=== PATIENT | female | born 1965 | race Caucasian/White ===

== ENCOUNTER 2022-03-17 07:12 | Emergency (ER) | payer BC ==
--- OUTSIDE RECORDS SUMMARY | 2022-03-17 07:15 | XMS REPORT | Continuity of Care Document ---
:1965 Author Organization [facility] t Address [address] [place] [address] Care Team Providers Name Role Phone RAYNE SHANKAR Attending Clinician Unavailable Raad ALEXANDER, Rayne Godwin Attending Clinician [phone] [id number] Attending Clinician Unavailable Payers Payer Name Policy Type Policy Number Effective Date Expiration Date S jose BCBS 2 [id number] 2022 00:00:00 Problems This patient has no known problems. Allergies, Adverse Reactions, Alerts This patient has no known allergies or adverse reactions. Medications This patient has no known medications. Procedures This patient has no known procedures. Encounters Start End Encounter Admission Attending Care Care Encounter Source Date/Time Date/Time Type Type Clinicians Facility Department ID 2022-03-20 2022-03-20 Outpatient JUSTO SHANKAR [id number] Justo 13:30:00 13:30:00 RAYNE mayfield 2022-03-14 2022-03-14 Office Jose R Shankar [id number] Justo 16:15:00 16:45:00 Visit Rayne Soares [id number] Se nkechi Godwin [id number] 2022-03-07 2022-03-07 Outpatient LAB90 JUSTO KEMP [id number] Justo 10:15:00 10:15:00 Alhajiol tran 2022-03-07 2022-03-07 Office Jose R Shankar [id number] Justo 09:30:00 10:00:00 Visit Rayne Soares [id number] Se nkechi Rossyi [id number] Results This patient has no known results.
[2022-03-17 08:25] LABS: Absolute Lymphocytes (CBC) 1.3 K/uL (0.7-4.9); Hematocrit 43.4 % (36.0-45.0); Lymphocytes % 17.9 % (15.3-44.8); MCV 88.8 fL (80-100); MPV 7.9 fL (7.6-11.3); RBC Red Blood Cell Count 4.89 M/uL (3.86-4.86)
--- NOTE | 2022-03-17 08:38 | RAD REPORT ---
EXAM DESCRIPTION: RAD - Foot Right 3 View - 03/17/2022 8:31 am CLINICAL HISTORY: cellulitis great toe x 3 weeks, eval for osteo COMPARISON: Foot Right 3 View dated 03/07/2022 FINDINGS: No fracture of the first toe phalanges. No cortical disruption or other findings of bone d estructive osteomyelitis. Degenerative findings on the March 07 study have not changed. Soft tissues of the lower extremity are thickened and edematous matching prior examination. No new ai r, calcification or foreign body in the soft tissues. IMPRESSION: No new finding since the March 07 examination. Continued surveillance can be performed if there is ongoing soft tissue infection. Osteomyelitis can be present prior to radiographic bone destruction.
--- NOTE | 2022-03-17 08:41 | RAD REPORT ---
EXAM DESCRIPTION: RAD - Foot Left 3 View - 03/17/2022 8:31 am CLINICAL HISTORY: cellulitis great toe x 2 weeks, eval for osteo COMPARISON: Foot Left 3 View dated 03/07/2022 FINDINGS: No fracture of the first toe phalanges. No cortical disruption or other findings of bone d estructive osteomyelitis. Degenerative findings detailed March 07 have not changed. Overall soft tissue edema of the left foot and ankle. No new air, foreign body or calcification in th e soft tissues. IMPRESSION: No osteomyelitis findings at this time. Degenerative findings are unchanged from the March 07 examination. Ongoing surveillance can be performed if there is continued soft tissue infection. Osteomyelitis can be present prior to radiographic bone destruction.
[2022-03-17 09:01] LABS: C-Reactive Protein 6.34 mg/L (<3.00); Potassium 4.7 mmol/L (3.5-5.1)
--- NOTE | 2022-03-17 09:12 | EDPHYS ---
Physician Documentation [facility] Name: Natalie Lara Age: 57 yrs Sex: Female : 1965 Arrival Date: 03/17/2022 Time: 07:14 Bed 5 Private MD: ED Physician Germain Lucas HPI: 03/17 07:49 This 57 yrs old Female presents to ER via Wheelchair with complaints of cellulitis. rn 07:49 The patient presents with cellulitis of the right foot and left foot. Description: rn erythematous, warm. Onset: The symptoms/episode began/occurred 2 week(s) ago. Possible cause(s): unknown. Associated signs and symptoms: Pertinent positives: erythema, swelling, Pertinent negatives: fever. Modifying factors: the symptoms are alleviated by prescription meds, clindamycin. Severity of symptoms: At their worst the symptoms were mild, in the emergency department the symptoms have improved. The patient has not experienced similar symptoms in the past. The patient has been recently seen by a physician:. Pt reports infection of feet for 2 weeks. Seen by physician when it began, put on bactrim, didn't seem to be doing much, recently put on clindamycin for 2 days with some improvement of redness. Reports small blisters to big toes recently popped, no fever, no streaking, no pain. Has been soaking in epsom salt and listerine. . 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 - Social history:: Smoking status: Patient denies any tobacco usage or history of. - Family history:: not pertinent. - Hospitalizations: : No recent hospitalization is reported. ROS: 07:49 Constitutional: Negative for fever, chills, and weight loss, Eyes: Negative for injury, rn pain, redness, and discharge, Neck: Negative for injury, pain, and swelling, Cardiovascular: Negative for chest pain, palpitations, and edema, Respiratory: Negative for shortness of breath, cough, wheezing, and pleuritic chest pain, Abdomen/GI: Negative for abdominal pain, nausea, vomiting, diarrhea, and constipation, Back: Negative for injury and pain, MS/Extremity: Negative for injury and deformity, Skin: + redness and swelling to bitleral 1st toes. Neuro: Negative for headache, weakness, numbness, tingling, and seizure. Exam: 07:49 Constitutional: This is a well developed, well nourished patient who is awake, alert, rn and in no acute distress. Head/Face: Normocephalic, atraumatic. Cardiovascular: Regular rate and rhythm. No pulse deficits. Respiratory: No increased work of breathing, no retractions or nasal flaring. Skin: Warm, dry. + mild erythema to bilateral 1st toes, each with unroofed blisters, right toe blister is dry and non-fluctuant, left toe blister is still draining a small amount of pus and also non-fluctuanct. No streaking. MS/ Extremity: Pulses equal, no cyanosis. Neuro: Awake and alert, GCS 15 Vital Signs: 07:38 Weight 136.08 kg; Height 5 ft. 6 in. (167.64 cm); Pain 3/10; jl7 07:51 Temp 97.9(O); kr3 09:35 BP 152 / 99; Pulse 79; Resp 16; Pulse Ox 99% on R/A; kr3 07:38 Body Mass Index 48.42 (136.08 kg, 167.64 cm) jl7 MDM: 07:14 Patient medically screened. rn 09:11 Differential diagnosis: cellulitis. Data reviewed: vital signs, nurses notes, lab test rn result(s), radiologic studies, plain films, and as a result, I will discharge patient. Counseling: I had a detailed discussion with the patient and/or guardian regarding: the historical points, exam findings, and any diagnostic results supporting the discharge/admit diagnosis, lab results, radiology results, the need for outpatient follow up, to return to the emergency department if symptoms worsen or persist or if there are any questions or concerns that arise at home. Special discussion: I discussed with the patient/guardian in detail that at this point there is no indication for admission to the hospital. It is understood, however, that if the symptoms persist or worsen the patient needs to return immediately for re-evaluation. ED course: WBC normal, sed rate normal, no osteo on xrays, stable vitals and pt reports improving on clindamycin. Will dc home with continuation of clindamycin, told to not soak so much, continue mupirocin on open blisters, and return if worsens for admission at that point.. 03/17 07:49 Order name: CBC with Diff; Complete Time: 08:51 rn 03/17 07:49 Order name: Basic Metabolic Panel; Complete Time: 09:10 rn 03/17 07:49 Order name: Procalcitonin rn 03/17 07:49 Order name: Sed Rate; Complete Time: 08:51 rn 03/17 07:49 Order name: CRP; Complete Time: 09:10 rn 03/17 07:49 Order name: Wound Culture rn 03/17 07:49 Order name: XRAY Foot LEFT 3 View; Complete Time: 08:51 rn 03/17 07:49 Order name: XRAY Foot RIGHT 3 View; Complete Time: 08:51 rn 03/17 07:49 Order name: IV Start; Complete Time: 08:12 rn Administered Medications: No medications were administered Disposition Summary: 03/17/22 09:12 Discharge Ordered Location: Home rn Problem: new rn Symptoms: have improved rn Condition: Stable rn Diagnosis - Cellulitis of left lower limb rn - Cellulitis of right lower limb rn Followup: rn - With: Private Physician - When: As needed - Reason: Recheck today's complaints, Re-evaluation by your physician Discharge Instructions: - Discharge Summary Sheet rn - Cellulitis, Adult rn Forms: - Medication Reconciliation Form rn - Thank You Letter rn - Antibiotic patternmaker wood - Prescription Opioid Use rn Signatures: Dispatcher [employer] Germain Pitts MD MD rn Leal, Jahala, RN RN jl7
--- NOTE | 2022-03-17 09:12 | ER ---
Nurse's Notes [facility] Name: Natalie Lara Age: 57 yrs Sex: Female : 1965 Arrival Date: 03/17/2022 Time: 07:14 Bed 5 Private MD: Diagnosis: Cellulitis of left lower limb;Cellulitis of right lower limb Presentation: 03/17 07:38 Chief complaint: Patient states: Bilateral feet swelling and blisters for a few weeks, jl7 PCP started antibiotics on 03/07/22, clindamycin started 03/14/22, redness improved, blisters worse. Coronavirus screen: At this time, the client does not indicate any symptoms associated with coronavirus-19. Ebola Screen: No symptoms or risks identified at this time. Risk Assessment: Do you want to hurt yourself or someone else? Patient reports no desire to harm self or others. Onset of symptoms was February 2022. 07:38 Method Of Arrival: Wheelchair [facility] 07:38 Acuity: YOSHI 3 [facility] 09:40 Initial Sepsis Screen: Does the patient meet any 2 criteria? No. Patient's initial kr3 sepsis screen is negative. Does the patient have a suspected source of infection? Yes: Skin breakdown/wound. Triage Assessment: 07:41 General: Appears in no apparent distress. uncomfortable, Behavior is calm, cooperative, jl7 appropriate for age. Pain: Complains of pain in right foot and left foot Pain currently is 3 out of 10 on a pain scale. 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 - Social history:: Smoking status: Patient denies any tobacco usage or history of. - Family history:: not pertinent. - Hospitalizations: : No recent hospitalization is reported. Screenin:37 Abuse screen: Denies threats or abuse. Nutritional screening: No deficits noted. kr3 Tuberculosis screening: No symptoms or risk factors identified. Fall Risk IV access (20 points). Total Parmar Fall Scale indicates No Risk (0-24 pts). Assessment: 07:55 General: Appears in no apparent distress. comfortable, Behavior is calm, cooperative, kr3 appropriate for age. Derm: Wound noted multiple bilateral abrasion of lower extremities at different stage of healing. 09:38 Reassessment: No changes from previously documented assessment. Patient and/or family kr3 updated on plan of care and expected duration. Pain level reassessed. Musculoskeletal:. Vital Signs: 07:38 Weight 136.08 kg; Height 5 ft. 6 in. (167.64 cm); Pain 3/10; jl7 07:51 Temp 97.9(O); kr3 09:35 BP 152 / 99; Pulse 79; Resp 16; Pulse Ox 99% on R/A; kr3 07:38 Body Mass Index 48.42 (136.08 kg, 167.64 cm) jl7 ED Course: 07:14 Patient arrived in ED. am2 07:14 Germain Lucas MD is Attending Physician. rn 07:38 Arm band placed on Patient placed in an exam room, on a stretcher. ll1 07:41 Triage completed. jl7 07:50 Rosie Lieberman RN is Primary Nurse. kr3 08:05 Inserted saline lock: 22 gauge in right antecubital area, using aseptic technique. kr3 Blood collected. 08:13 Wound Culture Sent. kr3 08:13 CRP Sent. kr3 08:13 Procalcitonin Sent. kr3 08:13 Sed Rate Sent. kr3 08:13 Basic Metabolic Panel Sent. kr3 08:13 CBC with Diff Sent. kr3 08:30 Bed in low position. Call light in reach. Side rails up X 1. kr3 08:36 XRAY Foot RIGHT 3 View In Process Unspecified. EDMS 08:36 XRAY Foot LEFT 3 View In Process Unspecified. EDMS 09:37 No provider procedures requiring assistance completed. kr3 09:40 IV discontinued, intact, bleeding controlled, No redness/swelling at site. Pressure kr3 dressing applied. Administered Medications: No medications were administered Medication: 09:41 VIS not applicable for this client. kr3 Outcome: 09:12 Discharge ordered by . rn 09:40 Discharged to home via wheelchair. kr3 09:40 Condition: stable 09:40 Discharge instructions given to patient, Instructed on discharge instructions, follow up and referral plans. Demonstrated understanding of instructions, follow-up care. 09:41 Patient left the ED. kr3 Signatures: Dispatcher [employer] EDGermain Wilcox MD MD rn Leal, Jahala RN RN jl7 Evelyn Lin Lynsay, RN RN ll1 Rosie Lieberman RN RN kr3 Corrections: (The following items were deleted from the chart) 09:24 09:19 General: Appears in no apparent distress. comfortable, Behavior is calm, kr3 cooperative, appropriate for age, kr3 :24 09:19 Derm: Wound noted multiple bilateral abrasion of lower extremities at different kr3 stage of healing kr3
[2022-03-17 10:34] VITALS: TEMP 97.9
[2022-03-17 10:36] VITALS: BP 152/99; O2SAT 99
== END 2022-03-17 09:41 | disposition home or self-care (01) ==
LOC: ER 07:12
DX: L03.116 Cellulitis of left lower limb (principal); L03.115 Cellulitis of right lower limb; I10 Essential (primary) hypertension; Z88.1 Allergy status to other antibiotic agents; Z88.5 Allergy status to narcotic agent
CPT/HCPCS: 36415; 80048; 84145; 85025; 85652; 86140; 87070; 87205; 99283

== ENCOUNTER 2022-03-20 03:31 | Emergency (ER) | payer BC ==
--- OUTSIDE RECORDS SUMMARY | 2022-03-20 03:33 | XMS REPORT | Continuity of Care Document ---
:1965 Author Organization [facility] t Address [address] [place] [address] Care Team Providers Name Role Phone RAYNE SHANKAR Attending Clinician Unavailable Raad ALEXANDER, Rayne Godwin Attending Clinician [phone] [id number] Attending Clinician Unavailable Payers Payer Name Policy Type Policy Number Effective Date Expiration Date S jose BCBS 2 [id number] 2022 00:00:00 Problems This patient has no known problems. Allergies, Adverse Reactions, Alerts This patient has no known allergies or adverse reactions. Medications This patient has no known medications. Procedures This patient has no known procedures. Encounters Start End Encounter Admission Attending Care Care Encounter Source Date/Time Date/Time Type Type Clinicians Facility Department ID 2022-03-20 2022-03-20 Outpatient JUSTO SHANKAR [id number] Justo 13:30:00 13:30:00 RAYNE mayfield 2022-03-17 2022-03-17 Outpatient JUSTO SHANKAR [id number] Justo 00:00:00 00:00:00 RAYNE mayifeld 2022-03-14 2022-03-14 Office Jose R Shankar [id number] Justo 16:15:00 16:45:00 Visit Rayne Soares [id number] Se nkechi Godwin [id number] 2022-03-07 2022-03-07 Outpatient LAB90 JUSTO KEMP [id number] Justo 10:15:00 10:15:00 Sarai mayfield 2022-03-07 2022-03-07 Office Jose R Shankar [id number] Justo 09:30:00 10:00:00 Visit Rayne Soares [id number] Se nkechi Godwin [id number] Results This patient has no known results.
--- NOTE | 2022-03-20 04:05 | EDPHYS ---
Physician Documentation [facility] Name: Natalie Lara Age: 57 yrs Sex: Female : 1965 Arrival Date: 03/20/2022 Time: 03:33 Bed Waiting Private MD: PARAMJIT Physician Darin Atkins HPI: 03/20 04:00 This 57 yrs old Female presents to ER via Wheelchair with complaints of Rash, rodriguez Inquicker 4:15. 04:00 The patient's rash thought to be caused by medication, Dermatitis an unknown cause. The rodriguez rash is located on the back, chest, right arm and left arm. The rash can be described as erythematous, raised. Onset: The symptoms/episode began/occurred 2 day(s) ago. Associated signs and symptoms: Pertinent positives: burning sensation, itching. Severity of symptoms: At their worst the symptoms were mild moderate in the emergency department the symptoms are unchanged. Treatment given at home: Benadryl. It is unknown whether or not the patient has had similar symptoms in the past. 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 - Social history:: Smoking status: Patient denies any tobacco usage or history of. - Family history:: not pertinent. ROS: 04:00 Constitutional: Negative for fever, chills, and weight loss, Eyes: Negative for injury, rodriguez pain, redness, and discharge, ENT: Negative for injury, pain, and discharge, Neck: Negative for injury, pain, and swelling, Cardiovascular: Negative for chest pain, palpitations, and edema, Respiratory: Negative for shortness of breath, cough, wheezing, and pleuritic chest pain, Abdomen/GI: Negative for abdominal pain, nausea, vomiting, diarrhea, and constipation, Back: Negative for injury and pain, : Negative for injury, bleeding, discharge, and swelling, MS/Extremity: Negative for injury and deformity, Neuro: Negative for headache, weakness, numbness, tingling, and seizure, Psych: Negative for depression, anxiety, suicide ideation, homicidal ideation, and hallucinations, Allergy/Immunology: Negative for hives, rash, and allergies, Endocrine: Negative for neck swelling, polydipsia, polyuria, polyphagia, and marked weight changes, Hematologic/Lymphatic: Negative for swollen nodes, abnormal bleeding, and unusual bruising. 04:00 Skin: Positive for erythema, rash, diffusely. Exam: 04:00 Constitutional: This is a well developed, well nourished patient who is awake, alert, rodriguez and in no acute distress. Head/Face: Normocephalic, atraumatic. Eyes: Pupils equal round and reactive to light, extra-ocular motions intact. Lids and lashes normal. Conjunctiva and sclera are non-icteric and not injected. Cornea within normal limits. Periorbital areas with no swelling, redness, or edema. ENT: Nares patent. No nasal discharge, no septal abnormalities noted. Tympanic membranes are normal and external auditory canals are clear. Oropharynx with no redness, swelling, or masses, exudates, or evidence of obstruction, uvula midline. Mucous membranes moist. Neck: Trachea midline, no thyromegaly or masses palpated, and no cervical lymphadenopathy. Supple, full range of motion without nuchal rigidity, or vertebral point tenderness. No Meningismus. Chest/axilla: Normal chest wall appearance and motion. Nontender with no deformity. No lesions are appreciated. Cardiovascular: Regular rate and rhythm with a normal S1 and S2. No gallops, murmurs, or rubs. Normal PMI, no JVD. No pulse deficits. Respiratory: Lungs have equal breath sounds bilaterally, clear to auscultation and percussion. No rales, rhonchi or wheezes noted. No increased work of breathing, no retractions or nasal flaring. Abdomen/GI: Soft, non-tender, with normal bowel sounds. No distension or tympany. No guarding or rebound. No evidence of tenderness throughout. Back: No spinal tenderness. No costovertebral tenderness. Full range of motion. Female : Normal external genitalia. MS/ Extremity: Pulses equal, no cyanosis. Neurovascular intact. Full, normal range of motion. Neuro: Awake and alert, GCS 15, oriented to person, place, time, and situation. Cranial nerves II-XII grossly intact. Motor strength 5/5 in all extremities. Sensory grossly intact. Cerebellar exam normal. Normal gait. Psych: Awake, alert, with orientation to person, place and time. Behavior, mood, and affect are within normal limits. 04:00 Skin: Appearance: Color: normal in color, Temperature: normal temperature, Moisture: normal moisture, petechiae, not noted, ecchymosis, not noted, flushing, not noted, diaphoresis is not appreciated, swelling, is not appreciated. Vital Signs: 03:43 BP 153 / 72; Pulse 86; Resp 16 S; Temp 98.7(O); Pulse Ox 98% on R/A; Weight 129.27 kg bb (R); Height 5 ft. 6 in. (167.64 cm) (R); Pain 0/10; 03:43 Body Mass Index 46.00 (129.27 kg, 167.64 cm) bb MDM: 03:59 Patient medically screened. rodriguez Administered Medications: 04:06 Drug: Benadryl (diphenhydrAMINE) 50 mg Route: PO; bb 04:11 Follow up: Response: Medication administered at discharge. bb 04:06 Drug: Pepcid (famotidine) 40 mg Route: PO; bb 04:11 Follow up: Response: Medication administered at discharge. bb 04:06 Drug: predniSONE 60 mg Route: PO; bb 04:10 Follow up: Response: Medication administered at discharge. bb 04:06 Drug: KeFLEX (cephalexin) 500 mg Route: PO; bb 04:10 Follow up: Response: Medication administered at discharge. Disposition Summary: 03/20/22 04:04 Discharge Ordered Location: Home rodriguez Problem: new rodriguez Symptoms: have improved rodriguez Condition: Stable rodriguez Diagnosis - Dermatitis, unspecified rodriguez - Adverse effect of unspecified drugs, medicaments and biological substances - BACTRIMcha Followup: rodriguez - With: Private Physician - When: 2 - 3 days - Reason: Recheck today's complaints, Continuance of care, Re-evaluation by your physician Discharge Instructions: - Discharge Summary Sheet rodriguez - Drug Allergy, [id number] rodriguez - Drug Allergy rodriguez - Rash, Adult rodriguez - Rash, Adult, [id number] rodriguez Forms: - Medication Reconciliation Form rodriguez - Thank You Letter rodriguez - Antibiotic Education rodriguez - Prescription Opioid Use rodriguez Prescriptions: - Benadryl 25 mg Oral Capsule - take 2 capsule by ORAL route every 6 hours As needed; 45 tablet; Refills: 0, rodriguez Product Selection Permitted - Cephalexin 500 mg Oral Capsule - take 1 capsule by ORAL route every 6 hours for 7 days; 28 capsule; Refills: 0, [facility] Product Selection Permitted - Pepcid 20 mg Oral Tablet - take 1 tablet by ORAL route every 12 hours for 15 days; 30 tablet; Refills: 0, [facility] Product Selection Permitted Signatures: Darin Atkins, Shana Chavez MD, cha, RN RN bb
--- NOTE | 2022-03-20 04:05 | ER ---
Nurse's Notes [facility] Name: Natalie Lara Age: 57 yrs Sex: Female : 1965 Arrival Date: 03/20/2022 Time: 03:33 Bed Waiting Private MD: Diagnosis: Dermatitis, unspecified;Adverse effect of unspecified drugs, medicaments and biological substances-BACTRIM Presentation: 03/20 03:43 Chief complaint: Patient states: she is taking bactrim and clindamycin for cellulitis bb in her feet and broke out in a rash yesterday which is itching. Coronavirus screen: At this time, the client does not indicate any symptoms associated with coronavirus-19. Ebola Screen: No symptoms or risks identified at this time. Initial Sepsis Screen: Does the patient meet any 2 criteria? No. Patient's initial sepsis screen is negative. Does the patient have a suspected source of infection? No. Patient's initial sepsis screen is negative. Risk Assessment: Do you want to hurt yourself or someone else? Patient reports no desire to harm self or others. Onset of symptoms was March 19, 2022. 03:43 Method Of Arrival: Wheelchair bb 03:43 Acuity: YOSHI 4 bb 04:00 Note pt seen by Dr Atkins in triage evaluated and discharged. bb Triage Assessment: 03:44 General: Appears in no apparent distress. uncomfortable, Behavior is calm, cooperative. bb Pain: Denies pain. Neuro: Level of Consciousness is awake, alert, obeys commands, Oriented to person, place, time, situation. Cardiovascular: Capillary refill < 3 seconds Patient's skin is warm and dry. Respiratory: Respiratory effort is even, unlabored, Respiratory pattern is regular. GI: No signs and/or symptoms were reported involving the gastrointestinal system. Derm: Rash noted that is papular. Musculoskeletal: No signs and/or symptoms reported regarding the musculoskeletal system. 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 - Social history:: Smoking status: Patient denies any tobacco usage or history of. - Family history:: not pertinent. Assessment: 04:11 Reassessment: Patient is alert, oriented x 3, equal unlabored respirations, skin bb warm/dry/pink. pt discharged from triage pt verbalized understanding of and agrees to plan of care discharge instructions given pt exit via wheelchair accompanied by spouse. Vital Signs: 03:43 BP 153 / 72; Pulse 86; Resp 16 S; Temp 98.7(O); Pulse Ox 98% on R/A; Weight 129.27 kg bb (R); Height 5 ft. 6 in. (167.64 cm) (R); Pain 0/10; 03:43 Body Mass Index 46.00 (129.27 kg, 167.64 cm) bb ED Course: 03:33 Patient arrived in ED. bp1 03:44 Triage completed. bb 03:44 Arm band placed on. bb 03:59 Darin Atkins MD is Attending Physician. rodriguez 04:06 Shana Riggins, RN is Primary Nurse. bb 04:12 No provider procedures requiring assistance completed. Patient did not have IV access bb during this emergency room visit. Administered Medications: 04:06 Drug: Benadryl (diphenhydrAMINE) 50 mg Route: PO; bb 04:11 Follow up: Response: Medication administered at discharge. bb 04:06 Drug: Pepcid (famotidine) 40 mg Route: PO; bb 04:11 Follow up: Response: Medication administered at discharge. bb 04:06 Drug: predniSONE 60 mg Route: PO; bb 04:10 Follow up: Response: Medication administered at discharge. bb 04:06 Drug: KeFLEX (cephalexin) 500 mg Route: PO; bb 04:10 Follow up: Response: Medication administered at discharge. bb Outcome: 04:04 Discharge ordered by . [facility] 04:12 Discharged to home via wheelchair, with family. bb 04:12 Condition: stable 04:12 Discharge instructions given to patient, Instructed on discharge instructions, follow up and referral plans. medication usage, Demonstrated understanding of instructions, follow-up care, medications, Prescriptions given X 3. 04:12 Patient left the ED. bb Signatures: Darin Atkins MD MD cha Ballard, Brenda, RN RN bb Sophia Cherry bp1
[2022-03-20] MEDS ORDERED: FAMOTIDINE 20 MG TAB ONE (04:11)
[2022-03-20] MEDS ORDERED: CEPHALEXIN 250 MG CAP ONE (04:11)
[2022-03-20] MEDS ORDERED: DIPHENHYDRAMINE 25 MG TAB/CAP ONE (04:11)
[2022-03-20] MEDS ORDERED: predniSONE 20 MG TAB ONE (04:12)
[2022-03-20 05:12] VITALS: BP 153/72; TEMP 98.7; O2SAT 98
== END 2022-03-20 04:12 | disposition home or self-care (01) ==
LOC: ER 03:31
DX: L30.9 Dermatitis, unspecified (principal); T36.8X5A Adverse effect of other systemic antibiotics, initial encounter; I10 Essential (primary) hypertension; Z88.1 Allergy status to other antibiotic agents; Z88.5 Allergy status to narcotic agent
CPT/HCPCS: 99283; J7512

== ENCOUNTER 2022-03-21 20:25 | Inpatient (IN) | payer BC ==
--- OUTSIDE RECORDS SUMMARY | 2022-03-21 20:28 | XMS REPORT | Continuity of Care Document ---
:1965 Author Organization [facility] t Address [address] [place] [address] Care Team Providers Name Role Phone RAYNE SHANKAR Attending Clinician Unavailable Rayne Shankar MD Attending Clinician [phone] Attending Clinician Unavailable Payers Payer Name Policy Type Policy Number Effective Date Expiration Date jose [facility] 2 [id number] 2022 00:00:00 Problems This patient has no known problems. Allergies, Adverse Reactions, Alerts This patient has no known allergies or adverse reactions. Medications This patient has no known medications. Procedures This patient has no known procedures. Encounters Start End Encounter Admission Attending Care Care Encounter Source Date/Time Date/Time Type Type Clinicians Facility Department ID 2022-03-21 2022-03-21 Outpatient JUSTO SHANKAR [id number] Justo 00:00:00 00:00:00 RAYNE mayfield 2022-03-20 2022-03-20 Office Jose R Shankar [id number] Justo 13:30:00 14:15:00 Visit Rayne Soares [id number] Se nkechi Godwin [id number] 2022-03-20 2022-03-20 Outpatient JUSTO SHANKAR [id number] Justo 00:00:00 00:00:00 RAYNE mayfield 2022-03-17 2022-03-17 Outpatient JUSTO SHANKAR [id number] Justo 00:00:00 00:00:00 RAYNE Maneol d 2022-03-14 2022-03-14 Office Jose R Shankar [id number] Justo 16:15:00 16:45:00 Visit Rayne Soares [id number] Se nkechi Godwin [id number] 2022-03-07 2022-03-07 Outpatient LAB90 JUSTO KEMP [id number] Justo 10:15:00 10:15:00 Seybol d 2022-03-07 2022-03-07 Office Jose R Shankar [id number] Justo 09:30:00 10:00:00 Visit Rayne Soares [id number] Se nkechi Godwin [id number] Results This patient has no known results.
[2022-03-21 21:33] LABS: Absolute Lymphocytes (CBC) 0.4 K/uL (0.7-4.9); Hematocrit 47.1 % (36.0-45.0); Lymphocytes % 1.4 % (15.3-44.8); MCV 91.2 fL (80-100); MPV 8.1 fL (7.6-11.3); RBC Red Blood Cell Count 5.16 M/uL (3.86-4.86)
[2022-03-21] MEDS ORDERED: NA CHLORIDE 0.9% 1,000 ML ONE (21:35)
[2022-03-21 21:54] LABS: Magnesium 1.6 mg/dL (1.8-2.4); Potassium 5.3 mmol/L (3.5-5.1)
[2022-03-21 21:56] LABS: Troponin High Sensitivity 235.9 pg/mL (<58.9)
--- NOTE | 2022-03-21 22:04 | RAD REPORT ---
EXAM DESCRIPTION: RAD - Foot Left 3 View - 03/21/2022 9:43 pm CLINICAL HISTORY: fall, foot pain COMPARISON: <Comparisons> FINDINGS: No fracture, dislocation or periosteal reaction. No acute or destructive bony process. Fi rst MTP joint degenerative change present. No air or foreign body in the soft tissues. IMPRESSION: Negative left foot examination for acute finding No significant change from the March 17 imaging.
[2022-03-21 22:06] LABS: Blood Morphology Comment NOT SEEN (NOT SEEN); Platelet Estimate ADEQ
[2022-03-21] MEDS ORDERED: NA CHLORIDE 0.9% 2,000 ML ONE (22:09)
--- NOTE | 2022-03-21 22:48 | ER ---
Nurse's Notes [facility] Name: Natalie Lara Age: 57 yrs Sex: Female : 1965 Arrival Date: 03/21/2022 Time: 20:28 Bed 7 Private MD: Diagnosis: Sepsis, unspecified organism;Cellulitis of left lower limb;Cellulitis of right lower limb;Acute kidney failure, unspecified;Hypomagnesemia Presentation: 03/21 20:37 Chief complaint: Patient states: "I have been feeling really weak lately. I was sitting tw5 on the toilet and I slid off I was just scared I broke my foot. My left food is kind of hurting.". Care prior to arrival: Medication(s) given: fluids given prior to arrival IV initiated. 18 GA, in the left antecubital area. Mechanism of Injury: Fall out of chair. Trauma event details: Injury occurred in the [facility], Injury occurred: at home. Injury occurred: March 21, 2022 Injury occurred at: 19:30. 20:37 Acuity: YSOHI 3 tw5 20:37 Method Of Arrival: EMS: [facility] tw5 20:42 Coronavirus screen: Vaccine status: Patient reports being unvaccinated. Ebola Screen: tw5 Patient negative for fever greater than or equal to 101.5 degrees Fahrenheit, and additional compatible Ebola Virus Disease symptoms Patient denies exposure to infectious person. No symptoms or risks identified at this time. Initial Sepsis Screen: Does the patient meet any 2 criteria? HR > 90 bpm. Does the patient have a suspected source of infection? Yes: Skin breakdown/wound. Risk Assessment: Do you want to hurt yourself or someone else? Patient reports no desire to harm self or others. Onset of symptoms is unknown. Historical: - Allergies: 20:42 Augmentin; tw5 20:42 Codeine; tw5 20:42 Bactrim; tw5 - PMHx: 20:42 guillain-barre syndrome; Hypertensive disorder; tw5 - Immunization history: Last tetanus immunization: none per patient choice. - Social history:: Smoking status: Patient denies any tobacco usage or history of. Screenin:37 Abuse screen: Denies threats or abuse. Denies injuries from another. Tuberculosis tw5 screening: No symptoms or risk factors identified. 03/22 01:03 Nutritional screening: No deficits noted. Fall Risk Fall in past 12 months (25 points). vc1 No secondary diagnosis (0 pts). IV access (20 points). Ambulatory Aid- None/Bed Rest/Nurse Assist (0 pts). Gait- Normal/Bed Rest/Wheelchair (0 pts) Mental Status- Oriented to own ability (0 pts). Total Parmar Fall Scale indicates High Risk Score (45 or more points). Fall prevention measures have been instituted. Side Rails Up X 2 Frequent Obs/Assessments Occuring Family Present and informed to notify staff if the need to leave the bedside. Primary Survey: 03/21 20:37 NO uncontrolled hemorrhage observed. A: The client is awake and alert. The airway is tw5 patent. Breathing/Chest: Spontaneous respiratory effort, equal unlabored respirations, breath sounds clear bilaterally, regular pattern, symmetrical chest rise and fall. Circulation: No external hemorrhage present. Regular and strong central pulse, skin warm/dry/normal color. Disability Exposure/Environment: All clothing and personal items were removed. Forensic evidence collection is not deemed to be indicated at this time. Items placed in patient belonging bag. Reassessment Alertness and Airway: Awake and alert. The airway is patent. Breathing: Spontaneous respiratory effort, equal unlabored respirations, breath sounds clear bilaterally, regular pattern with symmetrical chest rise and fall. Circulation: No external hemorrhage noted. Regular and strong central pulse, skin warm/dry/normal color. Disability: Pupils Pupils are equal, round, reactive to light and accomodation. Assessment: 20:37 General: Appears uncomfortable, Behavior is calm, cooperative, appropriate for age. tw5 Pain: Complains of pain in left foot Pain currently is 3 out of 10 on a pain scale. 03/22 00:05 Reassessment: waiting on lab to draw second set of blood cultures. vc1 01:04 Reassessment: No changes from previously documented assessment. Patient and/or family vc1 updated on plan of care and expected duration. Pain level reassessed. Patient is alert, oriented x 3, equal unlabored respirations, skin warm/dry/pink. Patient states symptoms have not improved. Vital Signs: 03/21 20:37 BP 129 / 66; Pulse 105; Resp 18; Temp 98.5; Pulse Ox 100% ; Weight 129.27 kg; Height 5 tw5 ft. 6 in. (167.64 cm); Pain 3/10; 21:34 BP 108 / 66; Pulse 100; Resp 18; Pulse Ox 100% ; vc1 23:34 BP 149 / 85; Pulse 99; Resp 15; Pulse Ox 98% on R/A; mh5 03/22 01:05 BP 101 / 56; Pulse 106; Resp 15; Pulse Ox 98% ; vc1 03/21 20:37 Body Mass Index 46.00 (129.27 kg, 167.64 cm) tw5 Burton Coma Score: 03/21 20:37 Eye Response: spontaneous(4). Verbal Response: oriented(5). Motor Response: obeys tw5 commands(6). Total: 15. Trauma Score (Adult): 20:37 Eye Response: spontaneous(1); Verbal Response: oriented(1); Motor Response: obeys tw5 commands(2); Systolic BP: > 89 mm Hg(4); Respiratory Rate: 10 to 29 per min(4); [place] Score: 15; Trauma Score: 12 20:37 Eye Response: spontaneous(1); Verbal Response: oriented(1); Motor Response: obeys tw5 commands(2); Systolic BP: > 89 mm Hg(4); Respiratory Rate: 10 to 29 per min(4); [place] Score: 15; Trauma Score: 12 ED Course: 20:28 Patient arrived in ED. ja2 20:35 Darin Siddiqui PA is PHCP. cp 20:35 Phil Mcnamara DO is Attending Physician. cp 20:37 Patient has correct armband on for positive identification. tw5 20:37 Patient maintains SpO2 saturation greater than 95% on room air. tw5 20:39 Triage completed. tw5 20:42 Arm band placed on. tw5 21:16 Initial lab(s) drawn, by me, sent to lab. Maintain EMS IV. Dressing intact. Good blood mh5 return noted. Site clean \\T\\ dry. 21:17 Warm blanket given. monitor tech on. Pulse ox on. NIBP on. mh5 21:17 Basic Metabolic Panel Sent. mh5 21:17 CBC with Diff Sent. mh5 21:17 Magnesium Sent. mh5 21:17 Troponin HS Sent. mh5 21:25 Sophia Manley, RN is Primary Nurse. bm7 21:45 XRAY Foot LEFT 3 View In Process Unspecified. EDMS 22:46 Amish Khalil MD is Hospitalizing Provider. cp 23:52 EKG done, by ED staff, reviewed by Darin SAMSON. [facility] 03/22 00:15 Urine Microscopic Only Sent. [facility] 00:16 Urine collected: straight cath specimen, blade colored. 5 01:03 No provider procedures requiring assistance completed. Patient admitted, IV remains in vc1 place. Administered Medications: 03/21 21:29 Drug: NS 0.9% 500 ml Route: IV; Rate: bolus; Site: left antecubital; bm7 22:59 Follow up: IV Status: Completed infusion; IV Intake: 500ml bm7 21:50 Not Given (Physician Discretion): NS 0.9% 500 ml IV at 125 ml/hr continuous cp 23:05 Drug: NS 0.9% (30 ml/kg) 30 ml/kg Route: IV; Rate: bolus; Site: left antecubital; bm7 03/22 01:00 Drug: vancoMYCIN 1 grams Route: IVPB; Infused Over: 2 hrs; Site: left antecubital; vc1 01:00 Drug: Magnesium Sulfate 1 grams Route: IVPB; Infused Over: 1 hrs; Site: left vc1 antecubital; 01:00 Drug: predniSONE 20 mg Route: PO; vc1 01:01 Drug: Cefepime 2 grams Route: IVPB; Rate: 200 ml/hr; Infused Over: 30 mins; Site: right vc1 antecubital; 01:22 Drug: NS 0.9% 1000 ml Route: IV; Rate: 100 ml/hr; Site: right antecubital; 1 Medication: 01:04 VIS not applicable for this client. vc1 Intake: 03/21 20:37 PO: 0ml; Total: 0ml. tw5 22:59 IV: 500ml; Total: 500ml. bm7 Output: 20:37 Urine: 0ml; Total: 0ml. tw5 Outcome: 22:47 Decision to Hospitalize by Provider. cp 03/22 01:03 Condition: good vc1 Instructed on the need for admit. 01:57 Admitted to Med/surg accompanied by nurse, accompanied by tech, via stretcher, room vc1 229, Report called to Receiving nurse 01:58 Patient left the ED. vc1 Signatures: Dispatcher [employer] EDHI Darin Siddiqui PA PA cp Martinez, Maria 5 Sophia Manley RN RN bm7 Denia Francois Tiffany 5 Blaire Carreno RN RN vc1 Corrections: (The following items were deleted from the chart) 03/21 23:42 23:34 Pulse 99bpm; Resp 15bpm; Pulse Ox 98% RA; 5 5
--- NOTE | 2022-03-21 22:48 | EDPHYS ---
Physician Documentation [facility] Name: Natalie Lara Age: 57 yrs Sex: Female : 1965 Arrival Date: 03/21/2022 Time: 20:28 Bed 7 Private MD: ED Physician Phil Mcnamara HPI: 03/21 20:40 This 57 yrs old Female presents to ER via EMS with complaints of Fall Injury, Rash, cp Fever. 20:40 Details of fall: The patient fell from seated position, toilet. Onset: The cp symptoms/episode began/occurred today. Associated injuries: The patient sustained left foot, painful injury. 20:40 The patient's rash thought to be caused by medication, took Bactrim for cellulitis of cp feet for 2 weeks. rash started this past Thursday. Bactrim was discontinued and patient now taking clindamycin and keflex. 20:40 Associated signs and symptoms: Pertinent positives: fever, general weakness, Pertinent cp negatives: difficulty breathing, swelling of lips, swelling of throat, swelling of tongue, vomiting. Historical: - Allergies: 20:42 Augmentin; tw5 20:42 Codeine; tw5 20:42 Bactrim; tw5 - PMHx: 20:42 guillain-barre syndrome; Hypertensive disorder; tw5 - Immunization history: Last tetanus immunization: none per patient choice. - Social history:: Smoking status: Patient denies any tobacco usage or history of. ROS: 20:45 Constitutional: Negative for body aches, chills, fever, poor PO intake. cp 20:45 Eyes: Negative for injury, pain, redness, and discharge. cp 20:45 ENT: Negative for drainage from ear(s), ear pain, sore throat, difficulty swallowing, difficulty handling secretions. 20:45 Cardiovascular: Negative for chest pain, palpitations. 20:45 Respiratory: Negative for cough, shortness of breath, wheezing. 20:45 Abdomen/GI: Negative for abdominal pain, nausea, vomiting, and diarrhea. 20:45 MS/extremity: Positive for pain, of the left foot. 20:45 Skin: Positive for rash, diffusely. 20:45 Neuro: Positive for weakness, Negative for altered mental status, dizziness, headache, syncope. 20:45 All other systems are negative. Exam: 20:50 Constitutional: The patient appears in no acute distress, alert, awake, cp non-diaphoretic, non-toxic, well developed, well nourished, obese. 20:50 Head/Face: Normocephalic, atraumatic. cp 20:50 Eyes: Periorbital structures: appear normal, Pupils: equal, round, and reactive to light and accomodation, Extraocular movements: intact throughout, Conjunctiva: normal, no exudate, no injection, Sclera: no appreciated abnormality, Lids and lashes: appear normal, bilaterally. 20:50 ENT: External ear(s): are unremarkable, Nose: is normal, Mouth: Lips: dry, Oral mucosa: pink and intact, moist, Tongue: is normal, Posterior pharynx: Airway: no evidence of obstruction, patent. 20:50 Neck: ROM/movement: is normal, is supple, without pain, no range of motions limitations, no meningismus, no nuchal rigidity. 20:50 Chest/axilla: Palpation: is normal, no crepitus, no tenderness. 20:50 Cardiovascular: Rate: tachycardic, Rhythm: regular, Edema: ankle edema, that is mild, JVD: is not appreciated. 20:50 Respiratory: the patient does not display signs of respiratory distress, Respirations: normal, no use of accessory muscles, no retractions, labored breathing, is not present, Breath sounds: are clear throughout, no decreased breath sounds, no stridor, no wheezing. 20:50 Abdomen/GI: Bowel sounds: active, all quadrants, Palpation: abdomen is soft and non-tender, in all quadrants, involuntary guarding, is not appreciated. 20:50 Skin: cellulitis, that is mild, on the right foot and left foot, rash can be described as erythematous, papular, and is diffusely located. 20:50 Neuro: Orientation: to person, place \T\ time. Mentation: is normal, Cerebellar function: is grossly normal, Motor: moves all fours, strength is normal, Sensation: is normal. 22:25 ECG was reviewed by the Attending Physician. cp Vital Signs: 20:37 BP 129 / 66; Pulse 105; Resp 18; Temp 98.5; Pulse Ox 100% ; Weight 129.27 kg; Height 5 tw5 ft. 6 in. (167.64 cm); Pain 3/10; 21:34 BP 108 / 66; Pulse 100; Resp 18; Pulse Ox 100% ; vc1 23:34 BP 149 / 85; Pulse 99; Resp 15; Pulse Ox 98% on R/A; mh5 03/22 01:05 BP 101 / 56; Pulse 106; Resp 15; Pulse Ox 98% ; vc1 03/21 20:37 Body Mass Index 46.00 (129.27 kg, 167.64 cm) tw5 Anmoore Coma Score: 03/21 20:37 Eye Response: spontaneous(4). Verbal Response: oriented(5). Motor Response: obeys tw5 commands(6). Total: 15. Trauma Score (Adult): 20:37 Eye Response: spontaneous(1); Verbal Response: oriented(1); Motor Response: obeys tw5 commands(2); Systolic BP: > 89 mm Hg(4); Respiratory Rate: 10 to 29 per min(4); Anmoore Score: 15; Trauma Score: 12 20:37 Eye Response: spontaneous(1); Verbal Response: oriented(1); Motor Response: obeys tw5 commands(2); Systolic BP: > 89 mm Hg(4); Respiratory Rate: 10 to 29 per min(4); Burton Score: 15; Trauma Score: 12 MDM: 20:46 Patient medically screened. 22:45 Physician consultation: Teodoro Cleary was contacted at 22:45, regarding admission, to the cp telemetry unit. patient's condition, and will see patient in ED, shortly. 03/22 00:00 Post IV fluid administration reassessment for Sepsis: Client not prescribed the 30 cp mL/kg IVF due to: Amount of IVF prescribed: 2100 30 cc/kg based on ideal body weight of 70 kg Focused Assessment performed: March 22, 2022 at 00:00 Heart: Regular rate/rhythm noted. Lungs: Noted to be clear bilaterally. Current vital signs reviewed: Yes. Neuro: no change Cardio: Cardiovascular examination improved from previous exam. Heart rate and blood pressure have improved. Respiratory: no change. 00:05 ED course: VSS, Patient qualifies for Severe Sepsis: (A) Cellulitis as source of cp infection, (B) HR of 105 initially, WBC: 27.5, (C) creatine of 2.4, troponin 235.9. 00:30 Data reviewed: vital signs, nurses notes, lab test result(s), EKG, radiologic studies, cp plain films. 00:30 Test interpretation: by ED physician or midlevel provider: ECG, plain radiologic cp studies. 03/21 20:40 Order name: Basic Metabolic Panel; Complete Time: 22:02 cp 03/21 22:02 Interpretation: Normal except: NA 131; K 5.3; GLUC 205; BUN 33; CRE 2.40; GFR 23; CA cp 8.9. 03/21 20:40 Order name: CBC with Diff; Complete Time: 22:28 cp 03/21 21:45 Interpretation: Normal except: WBC 27.5; RBC 5.16; HGB 15.3; HCT 47.1; LAUREANO% 94.5; LYM% cp 1.4; MN% 2.5; NEUT A 26.0; LYMA 0.4. 03/21 20:40 Order name: Magnesium; Complete Time: 22:02 cp 03/21 22:02 Interpretation: Abnormal: MG 1.6. cp 03/21 20:40 Order name: Troponin HS; Complete Time: 22:02 cp 03/21 22:03 Interpretation: Abnormal: Troponin HS 235.9. cp 03/21 20:40 Order name: Urine Microscopic Only; Complete Time: 01:06 cp 03/22 01:06 Interpretation: Normal except: UBACT 20-50. cp 03/21 20:40 Order name: Procalcitonin; Complete Time: 23:12 cp 03/21 20:40 Order name: XRAY Foot LEFT 3 View; Complete Time: 22:28 cp 03/21 21:46 Order name: Blood Culture Adult (2) cp 03/21 21:46 Order name: Lactate; Complete Time: 23:45 cp 03/22 00:23 Interpretation: LAC 1.8; Reviewed. cp 03/21 22:07 Order name: Manual Differential; Complete Time: 22:28 EDMS 03/21 22:28 Interpretation: Normal except: SEGS 86; BANDS [F] 3; LYM 3. cp 03/21 22:58 Order name: SARS RAPID; Complete Time: 23:45 mw2 03/22 00:15 Order name: Urine Dipstick-Ancillary; Complete Time: 00:23 EDMS 03/21 20:40 Order name: EKG; Complete Time: 20:41 cp 03/21 20:40 Order name: Cardiac monitoring; Complete Time: 21:16 cp 03/21 20:40 Order name: EKG - Nurse/Tech; Complete Time: 22:59 cp 08 20:40 Order name: IV Saline Lock; Complete Time: 21:16 cp 03/21 20:40 Order name: Labs collected and sent; Complete Time: 21:16 cp 03/21 20:40 Order name: O2 Per Protocol; Complete Time: 21:16 cp 03/21 20:40 Order name: O2 Sat Monitoring; Complete Time: 21:17 cp 03/21 20:40 Order name: Urine Dipstick-Ancillary (obtain specimen); Complete Time: 00:15 cp EC/12 22:25 Rate is 103 beats/min. Rhythm is regular. WV interval is normal. QRS interval is cp normal. QT interval is normal. T waves are Inverted in lead aVR. Interpreted by me. Reviewed by me. Administered Medications: 21:29 Drug: NS 0.9% 500 ml Route: IV; Rate: bolus; Site: left antecubital; [facility] 22:59 Follow up: IV Status: Completed infusion; IV Intake: 500ml [facility] 21:50 Not Given (Physician Discretion): NS 0.9% 500 ml IV at 125 ml/hr continuous cp 23:05 Drug: NS 0.9% (30 ml/kg) 30 ml/kg Route: IV; Rate: bolus; Site: left antecubital; 7 03/22 01:00 Drug: vancoMYCIN 1 grams Route: IVPB; Infused Over: 2 hrs; Site: left antecubital; vc1 01:00 Drug: Magnesium Sulfate 1 grams Route: IVPB; Infused Over: 1 hrs; Site: left vc1 antecubital; 01:00 Drug: predniSONE 20 mg Route: PO; vc1 01:01 Drug: Cefepime 2 grams Route: IVPB; Rate: 200 ml/hr; Infused Over: 30 mins; Site: right vc1 antecubital; 01:22 Drug: NS 0.9% 1000 ml Route: IV; Rate: 100 ml/hr; Site: right antecubital; vc1 Disposition: 06:12 Co-signature as Attending Physician, Phil MARTIN was immediately available on-site ms3 in the Emergency Department for consultation in the care of the patient.. Disposition Summary: 03/21/22 22:47 Hospitalization Ordered Hospitalization Status: Inpatient Admission cp Provider: Amish Khalil cp Location: Telemetry/[facility] (Inpatient) cp Condition: Stable cp Problem: new cp Symptoms: have improved cp Bed/Room Type: Standard cp Room Assignment: 229(03/22/22 00:32) mw Diagnosis - Sepsis, unspecified organism cp - Cellulitis of left lower limb cp - Cellulitis of right lower limb cp - Acute kidney failure, unspecified cp - Hypomagnesemia cp Forms: - Medication Reconciliation Form cp - SBAR form cp Signatures: Dispatcher [employer] EDMS Mercy Wise RN RN Teodoro Cleary, SHOT PEEN OPERATOR-C SHOT PEEN OPERATOR-Cla1 Darin Siddiqui PA PA cp Phil Mcnamara, DO ms3 Sophia Manley, RN RN bm7 Belle Santos tw5 Blaire Carreno RN RN vc1 Corrections: (The following items were deleted from the chart) 03/21 22:31 20:44 Head C Spine MPR Wo Con+CT.RAD.BRZ ordered. EDME EDME 03/22 00:32 03/21 22:47 cp 03/22 22:27 03/21 20:40 Details of fall: The patient fell from an upright position, while standing, cp cp
[2022-03-21] MEDS ORDERED: MAGNESIUM SULFATE 1 gm IVPB 1 GM/100 ML BAG IV ONE (23:16)
[2022-03-21 23:44] LABS: SARS-CoV-2 Antigen Rapid Res Negative (Negative)
[2022-03-22 00:14] LABS: Urine Blood Negative (Negative); Urine Glucose Negative (Negative); Urine Protein 1+ (Negative); Urine Specific Gravity >=1.030 (1.005-1.030); Urine pH 5.5 (5.0-7.0)
--- NOTE | 2022-03-22 00:48 | P.HP ---
Certification for Inpatient Patient admitted to: Inpatient With expected LOS: >2 Midnights Patient will require the following post-hospital care: None Practitioner: I am a practitioner with admitting privileges, knowledge of patient current condition, hospital course, and medical plan of care. 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 Approximately 2 weeks ago she was placed on Bactrim for suspected cellulitis of her lower extremities she took that medication until the of this month when she began to develop a rash she was seen on the in the emergency department and diagnosed with adverse reaction to Bactrim/drug rash and discharged home advised to discontinue the Bactrim and provided with new antibiotics Keflex/clindamycin. She reports the rash has continued to get worse and she has been feeling more unwell over the last few days. She was evaluated here in the emergency department today her labs show acute renal failure with creatinine of 2.4 significant leukocytosis, bandemia she reports fevers of up to 101 degrees today at home although she has had no measured fevers here. Patient was seen today for severe sepsis given tachycardia, leukocytosis and acute kidney failure, she was given broad-spectrum antibiotics with vancomycin/cefepime in the emergency department blood cultures were obtained patient with rash that began on her back/chest and has spread to include all of her extremities and face morbilliform rash with petechiae/purpura no ulcerations or blistering, no involvement of the mucous membranes noted eosinophils, platel ets and hemoglobin within normal limits at this time. Doubt DRESS, SJS/TEN. Will admit for further evaluation and management of severe sepsis, acute renal failure, morbilliform rash/drug reaction. - Past Medical/Surgical History -: Hypertension -: Hyperlipidemia -: Guillain-Alvares syndrome -: Left foot -: Carpal tunnel Psychosocial/ Personal History: Patient is disabled, lives at home with her - Family History Mother -: Diabetes - Social History Smoking Status: Never smoker Alcohol use: No CD- Drugs: No Caffeine use: Yes Place of Residence: Home Review of Systems 10-point ROS is otherwise unremarkable General: Fever, Chills, Weakness, Malaise Integumentary: Rash, As per HPI Physical Examination - Physical Exam General: Alert, In no apparent distress, Oriented x3 HEENT: Atraumatic, PERRLA, Mucous membr. moist/pink, EOMI, Sclerae nonicteric Neck: Supple, 2+ carotid pulse no bruit, No LAD, Without JVD or thyroid abnormality Respiratory: Clear to auscultation bilaterally, Normal air movement Cardiovascular: Regular rate/rhythm, Normal S1 S2 Gastrointestinal: Normal bowel sounds, No tenderness Musculoskeletal: No tenderness Integumentary: Other (Morbilliform rash with petechiae/purpura. No ulcerations or mucosal involvement) Neurological: Normal gait, Normal speech, Normal strength at 5/5 x4 extr, Normal tone, Normal affect - Studies Laboratory Data (last 24 hrs) 03/21/22 21:12: WBC 27.5 H* D, Hgb 15.3 H, Hct 47.1 H, Plt Count 266 03/21/22 21:12: Sodium 131 L, Potassium 5.3 H, BUN 33 H, Creatinine 2.40 H D, Glucose 205 H, Magnesium 1.6 L Assessment and Plan - Plan Assessment: Severe sepsis secondary to cellulitis/diabetic foot wound Acute renal failure related to severe sepsis Morbilliform rash/vasculitis Elevated troponin Hypertension Hyperlipidemia Plan: Severe sepsis secondary to cellulitis/diabetic foot wound: Patient started on broad-spectrum antibiotics including vancomycin/cefepime, she was on Bactrim at home for about a week and a half before she developed her morbilliform rash, she has since been on Keflex and clindamycin. Reaction to Bactrim possibly contributing to leukocytosis, renal dysfunction. Bactrim was discontinued on the , patient reports mild improvement in urticaria/rash. Will consult general surgery to evaluate wounds to lower extremity. Blood cultures were obtained in the emergency department. Lactate 1.8 no hypotension no septic shock at this time. Acute renal failure related to severe sepsis: Continue as above, renal ultrasound ordered, nephrology consulted, recent use of Bactrim could also be contributing. Appreciate further input from nephrology. Morbilliform rash/vasculitis: Suspect morbilliform rash/vasculitis from Bactrim, there is no involvement of the mucous membranes or ulcerations present. Hemoglobin, platelet, eosinophils normal doubt DRESS, SJS, TEN. We will start patient on course of oral steroids. Elevated troponin: Suspect related to demand ischemia from sepsis, possibly vasculitis from Bactrim. Cardiology consulted echocardiogram ordered we will trend troponins. No STEMI criteria present on EKG. Patient without chest pain or shortness of breath. Hypertension: Blood pressure acceptable in this time, continue home medications when appropriate hold GALDINO/ARB. Hyperlipidemia: Continue home medications. DVT PPX: Heparin Code status: Full Discharge Plan: Home Plan to discharge in: 72 Hours - Advance Directives Does patient have a Living Will: No Does patient have a Durable POA for Healthcare: No - Code Status/Comfort Care Code Status Assessed: Yes (Full code) Critical Care: No Time Spent Managing Pts Care (In Minutes): 70
[2022-03-22] MEDS ORDERED: NA CHLORIDE 0.9% 250 ML ONE (00:49)
[2022-03-22] MEDS ORDERED: predniSONE 20 MG TAB ONE (00:49)
[2022-03-22] MEDS ORDERED: VANCOMYCIN 1 GM/VIAL ONE (00:49)
[2022-03-22] MEDS ORDERED: CEFEPIME 2 GM VIAL ONE (00:49)
[2022-03-22] MEDS ORDERED: NA CHLORIDE 0.9% 100 ML ONE (00:50)
[2022-03-22] MEDS ORDERED: NA CHLORIDE 0.9% 500 ML ONE (00:50)
[2022-03-22 01:00] LABS: Transitional Epithelial <5 /HPF (None Seen); Urine Bacteria 20-50 /HPF (<20); Urine Mucus 2+ /HPF (None Seen); Urine RBC <5 /HPF (None Seen)
[2022-03-22] MEDS: NA CHLORIDE 0.9% 1,000 ML IV SCH ×3 (02:20→22:35)
[2022-03-22] MEDS: ACETAMINOPHEN 500 MG TAB PO PRN ×4 (02:40→23:59)
[2022-03-22] MEDS ORDERED: VANCOMYCIN 1 GM in NA CHLORIDE 0.9% 250 ML IVPB ONE (03:00)
[2022-03-22 03:09] VITALS: BMI 46.0
[2022-03-22 03:56] LABS: Absolute Lymphocytes (CBC) 0.6 K/uL (0.7-4.9); Hematocrit 44.6 % (36.0-45.0); MCV 91.1 fL (80-100); MPV 8.9 fL (7.6-11.3); RBC Red Blood Cell Count 4.89 M/uL (3.86-4.86)
[2022-03-22 04:10] LABS: Albumin 2.4 g/dL (3.4-5.0); Bilirubin Total 0.4 mg/dL (0.2-1.0); Magnesium 1.7 mg/dL (1.8-2.4); Potassium 4.8 mmol/L (3.5-5.1); Protein, Total 5.8 g/dL (6.4-8.2); Troponin High Sensitivity 280.6 pg/mL (<58.9)
--- NOTE | 2022-03-22 07:41 | RAD REPORT ---
EXAM DESCRIPTION: US - Renal Ultrasound-Complete - 03/22/2022 6:31 am CLINICAL HISTORY: Acute renal failure COMPARISON: None FINDINGS: The right kidney measures 10 cm with a mildly increased echotexture. The left kidney measures 9 cm with a mildly increased echotexture. Hydronephrosis is not seen. No gross abnormality of bladder IMPRESSION: Mildly increased renal echotexture may indicate parenchymal disease
[2022-03-22] MEDS ORDERED: predniSONE 20 MG TAB PO SCH (09:00)
[2022-03-22] MEDS: ASPIRIN EC 81 MG TAB PO SCH (09:07)
[2022-03-22] MEDS: ONDANSETRON 4 MG/2 ML VIAL IV PRN (09:07)
[2022-03-22] MEDS: HEPARIN 5000 UNIT/ML 1 ML VIAL SQ SCH ×2 (09:07→22:35)
--- NOTE | 2022-03-22 09:53 | P.CNS ---
Date of Consult: 03/22/22 Reason for Consult: Renal failure Requesting Physician: Amish Khalil Chief Complaint: Severe sepsis, ARF History of Present Illness: 57F w/ PMHx of Htn, HLD, & GBS who p/w rash, fevers and feeling unwell/weak. She recently took bactrim for BLE cellulitis then 3 days ago, started having diffuse rash & also developed fever. Referred to Nephrology for BRITTNEY. Baseline SCr 1.1 as of 03/17/2022. SCr on admission is 2.4, currently at 2.7. Urinalysis w/ elevated specific gravity & +proteinuria but no hematuria or pyuria. Bladder scan done today showed +urinary retention. Mcbride catheter inserted. Allergies amoxicillin [From Augmentin] Allergy (Unknown, Verified 03/22/22 02:07) unknown clavulanic acid [From Augmentin] Allergy (Unknown, Verified 03/22/22 02:07) unknown codeine Allergy (Verified 03/22/22 02:07) unknown sulfamethoxazole [From Bactrim] Adverse Reaction (Verified 03/22/22 02:07) Hives/Rash trimethoprim [From Bactrim] Adverse Reaction (Verified 03/22/22 02:07) Hives/Rash Home Medications: Famotidine 20 mg PO BID 03/22/22 Olmesartan Medoxomil 40 mg PO DAILY 03/22/22 - Past Medical/Surgical History Diabetic: No -: Hypertension -: Hyperlipidemia -: Guillain-Alvares syndrome -: Left foot -: Carpal tunnel Psychosocial/ Personal History: Patient is disabled, lives at home with her - Family History Mother Medical History: Diabetes - Social History Alcohol use: No CD- Drugs: No Caffeine use: Yes Place of Residence: Home Review of Systems General: Fever, Weakness Eyes: Unremarkable ENT: Unremarkable Respiratory: Unremarkable Cardiovascular: Unremarkable Gastrointestinal: Unremarkable Genitourinary: Unremarkable Musculoskeletal: Unremarkable Integumentary: Unremarkable (Diffuse rash) Neurological: Unremarkable Lymphatics: Unremarkable Physical Examination Temp Pulse Resp BP Pulse Ox 100.9 F 76 18 142/64 H 97 03/22/22 09:07 03/22/22 04:00 03/22/22 04:00 03/22/22 04:00 03/22/22 04:00 General: Other (appears as her stated age) HEENT: Atraumatic, Normocephalic Neck: Supple, JVD not distended Respiratory: Other (symmetric chest expansion) Cardiovascular: No rubs, No murmurs Gastrointestinal: Soft and benign, No rebound Musculoskeletal: No clubbing Integumentary: Other (+diffuse erythematous rash; +facial erythema) Neurological: Normal speech, Normal tone Urinary: Mcbride catheter External genitalia: Deferred Rectal: Deferred Laboratory Data (last 24 hrs) 03/21/22 21:12: WBC 27.5 H* D, Hgb 15.3 H, Hct 47.1 H, Plt Count 266 03/21/22 21:12: Sodium 131 L, Potassium 5.3 H, BUN 33 H, Creatinine 2.40 H D, Glucose 205 H, Magnesium 1.6 L Conclusions/Impression: # BRITTNEY 2/2 prerenal state/septic ATN + urinary retention Baseline SCr 1.1 as of 03/17/2022 SCr on admission is 2.4, currently at 2.7 Urinalysis w/ elevated specific gravity & +proteinuria but no hematuria or pyuria F/u random urine chem, upcr, iPTH, 25OHD BNP elevated Bladder scan on 03/22 +urinary retention Mcbride inserted Cont IV fluid Monitor I/O, renal panel # Hyperkalemia Improved IV fluid + mcbride insertion as above # Hyponatremia Mild, monitor # Severe sepsis 2/2 DM foot wound Abx per primary team # Diffuse rash likely 2/2 drug reaction Bactrim d/c'ed previously # Htn Cont current med regimen # Low serum bicarb, acidosis Bld alla pH wnl, monitor
[2022-03-22 12:20] LABS: Arterial Blood Carboxyhemoglob 1.1 % (0-1.5); Blood Gas Oxyhemoglobin 94.2 % (94-97); Blood O2 Saturation 96.6 % (92-98.5)
--- NOTE | 2022-03-22 14:57 | CON ---
Date of Consultation: 03/22/2022 Reason For Consultation: Rash and wounds on lower extremity. History Of Present Illness: The patient is a 57-year-old female with multiple medical history who pr esented to the emergency room last night with fever, rash, feeling weak, and she fell at home. She w as evaluated in the emergency room, was found to have severe sepsis. A protocol was followed. The p anderson was admitted and I was consulted for some wounds on her foot to make sure they were not the so urce of the sepsis. The patient saw me in my office on Thursday, and she was supposed to [facility]. She had been on Bactrim and clindamycin for 2 weeks, and the rash started Thursday after she saw me in my office. States that it was a maculopapular gurvinder h and has progressed to all over her body including the trunk, face, extremities, back, perineum. Th e patient is being treated with steroids, as well as IV antibiotics. She denies any sore throat, run ny nose, cough, headaches, or dizziness. No chest pain. No fever or chills. At this time, she did have a T-max of 101 degrees at home. Review of Systems: Otherwise unremarkable. Past Medical History: Hypertension, hyperlipidemia, Guillain-Norris syndrome. Past Surgical History: Carpal tunnel surgery and left foot surgery. Allergies: AMOXICILLIN, CLAVULANIC ACID, CODEINE, SULFA, TRIMETHOPRIM. Social History: The patient does not smoke or drink. Family History: Significant for diabetes. Physical Examination: Vital Signs: Currently are stable. Temperature was 97.6 at 4 o'clock this morning. There was 1 in the computer just reported which is 100.9. General: She is awake, alert, and oriented x3. Head and Neck: The patient has a rash involving the entire face, is red. Cranial nerves 2 through 1 2 are grossly within normal limits. There are no neck masses. No JVD. Throat is clear. There is n o evidence of mucocutaneous rash inside the mucous membranes. Chest: Clear. Heart: S1, S2. Abdomen: Soft. Extremities: Diminished dorsalis pedis and posterior tibial pulses and dry skin present on both lowe r extremities. There are scabs on both feet where it appears that blister may have burst but there i s no per se open wound at this time. There is some edema with a rash as well and it is patchy in the lower extremity and is complete in the upper part of her body. Laboratory Data: White count was 27.5 currently is 30.0. There is a left shift. Sedimentation rate is 6. Chemistries reviewed. BUN and creatinine are 36 and 2.69. Lactic acid was 1.8 and procalcit onin is 1.29. She had an x-ray of the foot which was negative. The renal ultrasound showed parenchy mal disease. Assessment: A 57-year-old female with multiple medical problems with a maculopapular rash throughout her body, probably a reaction to the sulfa and Bactrim. Recommendation: Medical management per Dr. Khalil. She is on steroid, IV antibiotics, supportive flui ds. I will order Lidex for the dry skin in the lower extremity which may help. The patient has been consulted with the Cardiology and Nephrology service, and at this time, however, the patient does no t have any need for surgical intervention. The patient can follow up with me in the wound healing ce nter upon discharge. Plan of care discussed in detail with the patient. /MODL Voice ID: [id number] Report ID: [id number]
[2022-03-22 15:11] LABS: UR PROTEIN 97.5 mg/dL (<11.9); Urine Protein/Creatinine Ratio 0.77 ratio (<0.15)
[2022-03-22 15:18] LABS: Specific Gravity 1.015 (1.005-1.030); Urine Bilirubin Negative (Negative); Urine Blood Trace-lysed (Negative); Urine Color Yellow (Yellow); Urine Glucose Negative (Negative); Urine Protein 1+ (Negative); Urine Urobilinogen 0.2 mg/dL (0.2-1.0)
[2022-03-22 15:27] LABS: UR SODIUM < 15 mmol/L (27-287)
[2022-03-22 15:37] LABS: Urine Bacteria <20 /HPF (<20); Urine Clarity Slightly Cloudy (Clear); Urine RBC <5 /HPF (None Seen)
[2022-03-22] MEDS ORDERED: NA CHLORIDE 0.9% 500 ML IV ONE (16:00)
[2022-03-22] MEDS: dexAMETHasone 4 MG/ML VIAL IV SCH (16:16)
[2022-03-22] MEDS: DIPHENHYDRAMINE 50 MG/ML VIAL IV PRN (16:16)
[2022-03-22] MEDS: ATORVASTATIN 40 MG TAB PO SCH (21:00)
[2022-03-22] MEDS: FAMOTIDINE 20 MG/2 ML VIAL IV SCH (22:36)
[2022-03-23] MEDS: CEFEPIME 1 GM in NA CHLORIDE 0.9% 100 ML IV SCH ×2
[2022-03-23 07:42] LABS: Hematocrit 37.6 % (36.0-45.0); MCV 89.8 fL (80-100); MPV 8.5 fL (7.6-11.3); RBC Red Blood Cell Count 4.18 M/uL (3.86-4.86)
[2022-03-23 08:07] LABS: Albumin 2.1 g/dL (3.4-5.0); Bilirubin Total 0.3 mg/dL (0.2-1.0); Magnesium 2.2 mg/dL (1.8-2.4); Potassium 5.1 mmol/L (3.5-5.1); Protein, Total 5.7 g/dL (6.4-8.2)
[2022-03-23 09:21] LABS: Blood Morphology Comment NOT SEEN (NOT SEEN); Platelet Estimate ADEQ
[2022-03-23] MEDS: NA CHLORIDE 0.9% 1,000 ML IV SCH ×2 (09:34→18:51)
[2022-03-23] MEDS: ASPIRIN EC 81 MG TAB PO SCH (09:35)
[2022-03-23] MEDS: FAMOTIDINE 20 MG/2 ML VIAL IV SCH ×2 (09:35→20:27)
[2022-03-23] MEDS: HEPARIN 5000 UNIT/ML 1 ML VIAL SQ SCH ×2 (09:35→20:24)
[2022-03-23] MEDS: dexAMETHasone 4 MG/ML VIAL IV SCH ×3 (09:35→18:45)
--- NOTE | 2022-03-23 10:25 | P.PN ---
Subjective Date of Service: 03/23/22 Chief Complaint: Severe sepsis, ARF Subjective: No new changes Physical Examination - Vital Signs Temperature: 98.7 F Blood Pressure: 121/57 Pulse: 87 Respirations: 18 Pulse Ox (%): 100 - Physical Exam General: Other (appears as her stated age) HEENT: Atraumatic, Normocephalic, Other (+facial erythema) Neck: Supple, JVD not distended Respiratory: Other (symmetric chest expansion) Cardiovascular: No rubs, No murmurs Gastrointestinal: Soft and benign, No rebound Musculoskeletal: No clubbing Integumentary: No warmth Neurological: Normal speech, Normal tone Urinary: Mcbride catheter External genitalia: Deferred Rectal: Deferred Assessment And Plan - Plan # BRITTNEY 2/2 prerenal state/septic ATN + urinary retention Baseline SCr 1.1 as of 03/17/2022 SCr on admission is 2.4, improved to 2.0 Urinalysis w/ elevated specific gravity & +proteinuria but no hematuria or pyuria F/u random urine chem, upcr, iPTH, 25OHD BNP elevated Bladder scan on 03/22 +urinary retention Cont Mcbride Cont IV fluid [place] po fluid intake Monitor I/O, renal panel # Hyperkalemia IV/PO hydration + mcbride as above # Hyponatremia Mild, monitor # Severe sepsis 2/2 DM foot wound Abx per primary team # Diffuse rash likely 2/2 drug reaction Rash also seen in palms & soles Bactrim d/c'ed previously # Htn Cont current med regimen # Low serum bicarb, acidosis Bld alla pH wnl, monitor # Hx of GBS Per other services
[2022-03-23] MEDS ORDERED: VANCOMYCIN 2 GM in NA CHLORIDE 0.9% 500 ML IVPB SCH (14:00)
[2022-03-23] MEDS: VANCOMYCIN 2 GM in NA CHLORIDE 0.9% 500 ML IVPB SCH (18:44)
[2022-03-23] MEDS: ACETAMINOPHEN 500 MG TAB PO PRN (20:24)
[2022-03-23] MEDS: ATORVASTATIN 40 MG TAB PO SCH (20:25)
--- NOTE | 2022-03-23 22:52 | P.PN ---
Subjective Date of Service: 03/23/22 Subjective: No new changes, No C/O voiced, Improving Patient is feeling better. Renal functions improved. Rash feels like it is improved as well. Patient feels like her strength is improved. Still with leukocytosis. Continue monitoring inflammatory markers as well. Infectious Disease consultation pending as well. Physical Examination - Vital Signs Temperature: 98.7 F Blood Pressure: 145/79 Pulse: 87 Respirations: 17 Pulse Ox (%): 96 Assessment & Plan - Problems (Diagnosis) (1) Nonallergic cutaneous leukocytoclastic vasculitis Current Visit: Yes Status: Acute (2) BRITTNEY (acute kidney injury) Current Visit: Yes Status: Acute (3) Elevated troponin Current Visit: Yes Status: Acute (4) Allergy to trimethoprim/sulfamethoxazole Current Visit: Yes Status: Acute - Plan Plan: 1. Continue with IV steroids 2. Gentle hydration 3. Repeat troponin 4. Echocardiogram 5. Check inflammatory markers 6. Autoimmune antibodies 7. Repeat renal function testing 8. GI/ DVT prophylaxis Discharge Plan: Home Plan to discharge in: Greater than 2 days - Advance Directives Does patient have a Living Will: Yes Does patient have a Durable POA for Healthcare: No - Code Status/Comfort Care Code Status Assessed: Yes Code Status: Full Code Critical Care: No Time Spent Managing PTS Care (In Minutes): 35
--- NOTE | 2022-03-23 22:54 | CON ---
Date of Consultation: 03/22/2022 Reason For Consultation: Elevated troponin. History Of Present Illness: 57-year-old female, history of hypertension, dyslipidemia, Guillain- [place] syndrome presented to the emergency, room with extensive rash and fever after she took Bactrim. She was evaluated in the emergency room, had cardiac enzymes checked. Troponin was borderline elevated, but she denies having any chest pain or shortness of breath or any known cardiac history. Past Medical History: Hypertension, obesity, dyslipidemia, Guillain- Lindrith syndrome. Medications: Refer to reconciliation sheet for detailed list. Allergies: SHE IS ALLERGIC TO SULFA DRUGS, BACTRIM, AUGMENTIN, AND PENICILLINS. Past Surgical History: Carpal tunnel syndrome release. Family History: No premature coronary artery disease or cancer. Social History: Does not smoke or drink. Does not use any drugs. Review of Systems: All systems reviewed. They are negative except for mentioned in HPI. Physical Examination: Vital Signs: Reviewed. Head and Neck: Pupils are equal, reactive to light. Intact eye movements. No JVD. No cervical lymphadenopathy. Neck is supple. Thyroid is not enlarged. Lungs: Clear to auscultation bilaterally. No rhonchi, rales, or crackles. No accessory muscle use. Heart: Regular rate and rhythm. No extra sounds. Abdomen: Soft, nontender. Bowel sounds positive. No organomegaly. No masses or hernia. No rigidity or rebound. Extremities: No edema, clubbing, cyanosis. Intact pulses. SKIN: Diffuse maculopapular rash all over her skin including face. Neurologic: Alert, awake, oriented x3. No acute focal deficits appreciated. LYMPH NODES: No cervical or axillary lymphadenopathy. Investigations: Troponin 280 and her creatinine is 2.69. Assessment And Plan: 1. Elevated troponin. No symptoms, but has risk factors. This is likely demand ischemia. Trend 2 more troponins please and I will follow the patient with you. 2. Acute renal failure due to severe volume depletion. Aggressive IV fluid management is recommended. Monitor BUN and creatinine closely. 3. Skin rash due to drug reaction and she has been managed with steroids and antihistamines. SR/MODL Voice ID: [id number] Report ID: [id number] JADEN
--- NOTE | 2022-03-23 23:14 | PN ---
Date of Progress Note: 03/23/2022 Subjective: Seen by bedside, doing clinically well. Denies any chest pain or shortness of breath. The rash is improving slowly. Review of Systems: All systems reviewed, they are negative. Physical Examination: Vital Signs: Reviewed. Head and Neck: Pupils are equal, reactive to light. Intact eye movements. No JVD. No cervical lym phadenopathy. Neck is supple. Thyroid is not enlarged. Lungs: Clear to auscultation bilaterally. No rhonchi, rales, or crackles. No accessory muscle use. Heart: Regular rate and rhythm. No extra sounds. Abdomen: Soft, nontender. Bowel sounds positive. No organomegaly. No masses or hernia. No rigidi ty or rebound. Extremities: No edema, clubbing, cyanosis. Intact pulses. Skin: Diffuse rash that is improved comparing to yesterday. Neurologic: Alert, awake, oriented x3. No acute focal deficits appreciated. Lymph Nodes: No cervical or axillary lymphadenopathy. Investigations: All reviewed. Assessment And Recommendations: 1.Elevated troponin. As only 1 set was drawn, I will order a stat 1 now and if it continues to be w ithin the very low levels like the first one, we will monitor and plan for outpatient workup with an echo and stress test. 2.Acute renal failure due to dehydration. Aggressive IV fluid management and evaluation of kidney f unction in the morning. SR/MODL Voice ID: [id number] Report ID: [id number]
[2022-03-24] MEDS: CEFEPIME 1 GM in NA CHLORIDE 0.9% 100 ML IV SCH (00:21)
[2022-03-24] MEDS: dexAMETHasone 4 MG/ML VIAL IV SCH ×3 (00:22→17:05)
[2022-03-24] MEDS: DIPHENHYDRAMINE 50 MG/ML VIAL IV PRN ×2 (03:59→21:57)
[2022-03-24] MEDS: NA CHLORIDE 0.9% 1,000 ML IV SCH ×4 (04:07→22:00)
[2022-03-24 08:13] LABS: Absolute Lymphocytes (CBC) 0.7 K/uL (0.7-4.9); Hematocrit 35.4 % (36.0-45.0); Lymphocytes % 2.8 % (15.3-44.8); MCV 90.6 fL (80-100); MPV 8.1 fL (7.6-11.3); RBC Red Blood Cell Count 3.91 M/uL (3.86-4.86)
[2022-03-24 08:30] LABS: Albumin 2.2 g/dL (3.4-5.0); Bilirubin Total 0.3 mg/dL (0.2-1.0); Magnesium 2.2 mg/dL (1.8-2.4); Potassium 4.8 mmol/L (3.5-5.1); Protein, Total 6.2 g/dL (6.4-8.2)
[2022-03-24 08:34] LABS: Troponin High Sensitivity 579.5 pg/mL (<58.9)
[2022-03-24] MEDS: HEPARIN 5000 UNIT/ML 1 ML VIAL SQ SCH ×2 (09:00→21:00)
[2022-03-24 09:09] LABS: Rheumatoid Factor NEG (NEG)
[2022-03-24] MEDS: ASPIRIN EC 81 MG TAB PO SCH (10:11)
[2022-03-24] MEDS: FAMOTIDINE 20 MG/2 ML VIAL IV SCH ×2 (10:12→21:57)
[2022-03-24] MEDS ORDERED: ALBUTEROL INHALER 60 PUFF/8 GM IH PRN (13:38)
--- NOTE | 2022-03-24 16:54 | P.PN ---
Subjective Date of Service: 03/24/22 Chief Complaint: Severe sepsis, ARF Subjective: Improving No acute events overnight. She reports that her rash is more pruritic but appears less erythematous to her today. Review of Systems 10-point ROS is otherwise unremarkable Integumentary: Rash Physical Examination - Vital Signs Temperature: 98.1 F Blood Pressure: 149/65 Pulse: 82 Respirations: 16 Pulse Ox (%): 97 - Physical Exam General: Alert, In no apparent distress, Oriented x3 HEENT: Atraumatic, PERRLA, Mucous membr. moist/pink, EOMI, Sclerae nonicteric Neck: Supple, JVD not distended Respiratory: Clear to auscultation bilaterally, Normal air movement Cardiovascular: No edema, Regular rate/rhythm, Normal S1 S2, No gallops, No rubs, No murmurs Gastrointestinal: Normal bowel sounds, Soft and benign, Non-distended, No tenderness, No rebound, No guarding Musculoskeletal: No clubbing Integumentary: Rash(es) (diffuse morbiliform rash with scattered maculaes and papules) Neurological: Normal speech, Cranial nerves 3-12 intact, Abnormal speech - Studies Microbiology Data (last 24 hrs): 03/22/22 00:10 Clean Catch Urine [place] Count - Final No growth. 03/22/22 00:10 Clean Catch Urine - Final No growth. Assessment And Plan - Plan # Severe Sepsis likely secondary to Left Lower Extremity Cellulitis/Diabetic Foot Wound # Acute Kidney Injury suspect due to Sepsis, resoved She met SIRS criteria based on temperature > 100.9 F, WBC > 12,000 and the suspected source is cellulitis +/- diabetic foot ulcers. 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 Other differential diagnoses include, but are not limited to, Bactrim-induced vs vasculitis. - Continue dexamethasone, diphenhydramine, famotidine - Spoke with Ashish at [facility] transfer center to discuss possible transfer with [facility] Rheumatology - awaiting call back. # Suspect Type II NSTEMI (Demand Ischemia) # Hypertension # Hyperlipidemia - Cardiology consulted and spoke with Dr. Vang - recommendations appreciated - Requested serial troponin and transthoracic echocardiogram Dash Kinney M.D.
[2022-03-24] MEDS: FLUOCINONIDE 0.05% CREAM 30GM TOP PRN (17:11)
--- NOTE | 2022-03-24 19:33 | PN ---
Date of Progress Note: 03/24/2022 Subjective: Seen at bedside, doing clinically well. No chest pain. Rash is improving. Review of Systems: No chest pain, shortness of breath, orthopnea, cough, nausea, vomiting, diarrhea. All other systems reviewed are negative. Physical Examination: Vital Signs: Reviewed. Head and Neck: Pupils are equal, reactive to light. Intact eye movements. No JVD. No cervical lym phadenopathy. Neck: Supple. Thyroid is not enlarged. Lungs: Clear to auscultation bilateral: No rhonchi, wheezing, crackles. No accessory muscle use. Heart: Regular rate and rhythm. No extra sounds. Abdomen: Soft, nontender. Bowel sounds positive. No organomegaly. No masses or hernia. No rigidi ty or rebound. Extremities: No clubbing, cyanosis. Intact pulses. Skin: Rash has improved. Neurologic: Alert, awake, oriented x3. No clubbing is appreciated. Investigations: Troponin peaked at 933 and coming down. Creatinine is 1.15. Assessment And Recommendation: 1.Elevated troponin, likely demand ischemia. Given the fact that her went up to 900 range , please obtain echocardiogram and will evaluate accordingly. 2.Acute renal failure due to severe dehydration from the allergic reaction that she had and this res olved. 3.Drug allergic reaction, being monitored and managed with steroids and antihistamines. /KATHLEEN Voice ID: [id number] Report ID: [id number]
--- NOTE | 2022-03-24 19:42 | CON ---
History Of Present Illness: Martha Lara is a 57-year-old female. I was consulted for evaluation o f possible rash from antibiotic Bactrim. Patient was admitted to the second floor in Med-Surg. Ryan es any headache, nausea, vomiting, chest pain, abdominal pain, constipation, or diarrhea. Feels much better today. She was treated for cellulitis of her right lower extremity with oral antibiotic, Donovan trim, and later on added clindamycin. After few days of antibiotic as per patient, she has started de veloping rash all over her body including face, upper and lower extremities, chest, abdomen, and back . The patient has history of allergies to amoxicillin, Augmentin, and codeine. Patient is currently being treated with vancomycin and cefepime, also on high dose steroids, Pepcid, and Benadryl. 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 Social History: Nonsmoker, nondrinker. Family History: Noncontributory, except diabetes. Medications: Vancomycin, cefepime. See MAR for other medications. Allergies: SULFA DRUGS, PENICILLIN, AND CODEINE. Review of Systems: A 10-point review was performed. Physical Examination: General: This is a 57-year-old female, lying in bed, not in any acute cardiopulmonary distress. [place] l Signs: Temperature 98.5, pulse 80, respirations 16, blood pressure 180/72. HEENT: Unremarkable. Neck: Supple. Lungs: Basal crackles. Heart: S1, S2, regular. Abdomen: Soft, nontender. Bowel sounds present. Extremities: Multiple lesions and maculopapular gurvinder h noted all across the extremities, chest, back, and abdomen. Also dryness and erythematous changes noted to the face with dry scaly hyperpigmentation. Laboratory Data: Shows WBC 25,700, hemoglobin 11.6, platelets 239, normal eosinophils. Neutrophil is 91%. Blood cultures are negative. X-ray of the foot shows negative for any acute finding. A renal ultrasound done on shows no acute finding. Assessment And Plan: A 57-year-old female with severe reaction to possible sulfa drugs, causing her to have extensive rash all across the body with possible vasculitis, cellulitis of the foot has impro ady, leukocytosis most likely secondary to steroid therapy, morbid obesity, anemia of chronic disease , elevated procalcitonin. Continue current antibiotic treatment and steroid therapy. Drug reaction can last for few weeks to m onths, especially sulfa drugs. We will continue to monitor patient clinical condition. Monitor for signs of infection and fevers with WBC and fever trends. Thank you Dr. Khalil for consult. NF/MODL Voice ID: [id number] Report ID: [id number]
[2022-03-25] MEDS: CEFEPIME 1 GM in NA CHLORIDE 0.9% 100 ML IV SCH ×3 (00:05→22:43)
[2022-03-25] MEDS: dexAMETHasone 4 MG/ML VIAL IV SCH ×3 (00:05→16:07)
[2022-03-25] MEDS: NA CHLORIDE 0.9% 1,000 ML IV SCH (00:20)
--- NOTE | 2022-03-25 03:03 | PN ---
Date of Progress Note: 03/24/2022 Chief Complaint: Acute kidney injury, severe sepsis. Subjective: The patient has nonoliguric urine output. She developed acute kidney injury secondary to prerenal state septic ATN and urinary retention. Baseline creatinine on previous occasion back in March 2022 was 1.1. During this admission, creatinine was elevated up to 2.4 and is gradually improving, although azotemia remains elevated. Review of Systems: Denies fever or chills. Objective: Lungs: Clear to auscultation bilaterally. Heart: S1 and S2. Abdomen: Soft, benign. Extremities: Minimal edema. Impression And Plan: 1. Acute kidney injury secondary to prerenal azotemia and nonoliguric acute tubular necrosis complicated by urinary retention. Urinalysis showed proteinuria, although hematuria was not present, there is no evidence of active urinary sediment except proteinuria. a. The patient will have a workup for proteinuria. Bladder scan on March 22 showed urinary retention. Continue [place] catheter. Continue hydration. 2. Hyperkalemia. Continue hydration with IV fluids and by mouth as tolerated. 3. Severe sepsis secondary to diabetic foot infection. Continue antibiotics. Wound care. 4. Hypertension. Continue current medication regimen. Avoid GALDINO inhibitor and angiotensin receptor amaris due to acute kidney injury. EB/MODL Voice ID: [id number] Report ID: [id number] JADEN
[2022-03-25 04:16] LABS: Absolute Lymphocytes (CBC) 1.1 K/uL (0.7-4.9); Hematocrit 33.3 % (36.0-45.0); Lymphocytes % 4.5 % (15.3-44.8); MCV 88.7 fL (80-100); MPV 7.9 fL (7.6-11.3); RBC Red Blood Cell Count 3.75 M/uL (3.86-4.86)
[2022-03-25 04:29] LABS: Albumin 2.2 g/dL (3.4-5.0); Bilirubin Total 0.2 mg/dL (0.2-1.0)
[2022-03-25] MEDS: VANCOMYCIN 2 GM in NA CHLORIDE 0.9% 500 ML IVPB SCH (05:40)
[2022-03-25] MEDS: ACETAMINOPHEN 500 MG TAB PO PRN ×3 (06:27→22:44)
--- NOTE | 2022-03-25 08:26 | EKG ---
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
[2022-03-25] MEDS: FAMOTIDINE 20 MG TAB PO SCH ×2 (10:03→22:45)
[2022-03-25] MEDS: ASPIRIN EC 81 MG TAB PO SCH (10:03)
[2022-03-25] MEDS: HEPARIN 5000 UNIT/ML 1 ML VIAL SQ SCH ×2 (10:03→22:45)
--- NOTE | 2022-03-25 10:58 | P.PN ---
Subjective Date of Service: 03/25/22 Chief Complaint: Severe sepsis, ARF Subjective Pt admitted for fever , sepsis and BRITTNEY today Cr down to 1.0 will stop IVF can switch diet to regular with low potassium Physical exam General: AAOx3, NAD, obese HEENT PERRLA, moist mucose membrane neck: supple, no elevated JVD CHEST; CTAB, no wheezes or rales HEART : RRR. Normal S1,2 no murmur or rub Abd: soft, Nt Ext: tarce edema Skin : upper extremity erythema , face skin exfolication # BRITTNEY 2/2 prerenal state/septic ATN + urinary retention resolved Baseline SCr 1.1 as of 03/17/2022 SCr on admission is 2.4, improved to 1.0 BNP elevated Bladder scan on 03/22 +urinary retention Cont Mcbride will dc IVF # Hyperkalemia resolved low potassium diet mcbride as above # Hyponatremia resolved Mild, monitor # Severe sepsis 2/2 DM foot wound Abx per primary team # Diffuse rash likely 2/2 drug reaction Rash also seen in palms & soles Bactrim d/c'ed previously F/U serology w.u # Htn Cont current med regimen # Hx of GBS Per other services Total time spent 45 minutes including documentation, reviewing labs , placing orders and discussing with medical team Physical Examination - Vital Signs Temperature: 98.5 F Blood Pressure: 144/76 Pulse: 85 Respirations: 16 Pulse Ox (%): 100 - Studies Microbiology Data (last 24 hrs): 03/22/22 00:10 Clean Catch Urine [place] Count - Final No growth. 03/22/22 00:10 Clean Catch Urine - Final No growth.
--- NOTE | 2022-03-25 14:54 | PN ---
Subjective: The patient sitting in bed. Denies any headache, nausea, vomiting, chest pain. Rash is getting better. Objective: Vital Signs: Reviewed. Lungs: Basal crackles. Heart: S1, S2. Regular. Abdomen: Soft, nontender. Bowel sounds present. Extremity: 1+ edema. Laboratory Data: Shows WBC 25,000, hemoglobin 11.2, platelets 252. Assessment And Plan: Cellulitis of lower extremity, drug reaction most likely secondary to Bactrim a nd sulfa drugs. We will recommend to continue vancomycin at this time, stop cefepime. We will follo w the patient closely. No other recommendation at this time. NF/MODL Voice ID: [id number] Report ID: [id number]
--- NOTE | 2022-03-25 15:46 | PN ---
Date of Progress Note: 03/25/2022 Subjective: Seen by bedside. No chest pain. No shortness of breath. Skin rash is improving. Review of Systems: No chest pain, shortness of breath, orthopnea, cough, nausea, vomiting, diarrhea. Skin rash is impro ving. All other systems reviewed and they were negative. Physical Examination: Vital Signs: Reviewed. Head and Neck: Pupils are equal, reactive to light. Intact eye movements. No JVD. No cervical lym phadenopathy. Neck is supple. Thyroid is not enlarged. Lungs: Clear to auscultation bilaterally. No rhonchi, wheezing, or crackles. No accessory muscle u se. Heart: Regular rate and rhythm. No extra sounds. Abdomen: Soft, nontender. Bowel sounds positive. No organomegaly. No masses or hernia. No rigidi ty or rebound. Extremities: No clubbing or cyanosis. Intact pulses. Skin: No rash. Neurologic: Alert, awake. No acute focal deficits appreciated. Investigations: Labs were reviewed. Assessment And Recommendations: Elevated troponin. As mentioned before, the patient is asymptomatic . Plan for outpatient stress test and an echocardiogram. /KATHLEEN Voice ID: [id number] Report ID: [id number]
--- NOTE | 2022-03-25 15:52 | RAD REPORT ---
EXAM DESCRIPTION: MRI - Foot Left Wo Cont - 03/25/2022 3:35 pm CLINICAL HISTORY: Foot pain and swelling COMPARISON: X-ray March 21, 2022 TECHNIQUE: Axial, sagittal and coronal magnetic resonance imaging left foot FINDINGS: Edema is present within subcutaneous tissues. No significant abnormal signal within the bones. No soft tissue abscess. IMPRESSION: No evidence of osteomyelitis
--- NOTE | 2022-03-25 16:00 | RAD REPORT ---
EXAM DESCRIPTION: MRIFoot Right Wo Cont03/25/2022 3:44 pm CLINICAL HISTORY: Right foot pain COMPARISON: February 2022 x-ray TECHNIQUE: Axial, sagittal and coronal magnetic resonance imaging of the right foot was obtained. FINDINGS: Edema is present within the subcutaneous tissues. No significant abnormal signal within the bones. No soft tissue abscess is noted No fracture or dislocation IMPRESSION: No evidence of osteomyelitis
--- NOTE | 2022-03-25 18:21 | P.PN ---
Subjective Date of Service: 03/25/22 Chief Complaint: Severe sepsis, ARF No acute events overnight. She states that her rash is peeling and more pruritic this morning. She states that she would like to switch her diet and have her [place] catheter removed. Review of Systems 10-point ROS is otherwise unremarkable Integumentary: Rash (diffuse, pruritic) Physical Examination - Vital Signs Temperature: 98.3 F Blood Pressure: 186/86 Pulse: 97 Respirations: 18 Pulse Ox (%): 95 Assessment And Plan - Plan - Physical Exam General: Alert, In no apparent distress, Oriented x3 HEENT: Atraumatic, PERRLA, Mucous membr. moist/pink, EOMI, Sclerae nonicteric Neck: Supple, JVD not distended Respiratory: Clear to auscultation bilaterally, Normal air movement Cardiovascular: No edema, Regular rate/rhythm, Normal S1 S2, No gallops, No rubs, No murmurs Gastrointestinal: Normal bowel sounds, Soft and benign, Non-distended, No tenderness, No rebound, No guarding Musculoskeletal: No clubbing Integumentary: Rash(es) (diffuse morbiliform rash with scattered macules and papules) Neurological: Normal speech, Cranial nerves 3-12 intact, Abnormal speech # Severe Sepsis likely secondary to Left Lower Extremity Cellulitis/Diabetic Foot Wound # Acute Kidney Injury suspect due to Sepsis, resoved She met SIRS criteria based on temperature > 100.9 F, WBC > 12,000 and the suspected source is cellulitis +/- diabetic foot ulcers. 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 Other differential diagnoses include, but are not limited to, Bactrim-induced vs vasculitis. - Continue dexamethasone, diphenhydramine, famotidine - Spoke with Ashish at [facility] transfer center to discuss possible transfer with [facility] Rheumatology - They recommended transfer to a facility with inpatient Dermatology - She has been accepted to [facility], and is waiting availability of a Med/Surg bed # Suspect Type II NSTEMI (Demand Ischemia) # Hypertension # Hyperlipidemia - Cardiology consulted and spoke with Dr. Vang - recommendations appreciated - Serial troponin = 235.9 -> 280.6 -> 933.3 -> 579.5 -> 460.1 - Transthoracic echocardiogram = pending Dash Kinney M.D. Discharge Plan: Transfer (Accepted to [facility], awaiting bed availability) Plan to discharge in: Unknown
[2022-03-25] MEDS ORDERED: VALSARTAN 160 MG TAB PO SCH (20:00)
[2022-03-25] MEDS ORDERED: TIZANIDINE 4 MG TABLET PO ONE (21:03)
[2022-03-26] MEDS: dexAMETHasone 4 MG/ML VIAL IV SCH ×2 (01:40→09:23)
[2022-03-26 05:47] LABS: Absolute Lymphocytes (CBC) 2.7 K/uL (0.7-4.9); Lymphocytes % 10.6 % (15.3-44.8); MCV 89.9 fL (80-100); RBC Red Blood Cell Count 3.89 M/uL (3.86-4.86)
[2022-03-26 05:59] LABS: Albumin 2.4 g/dL (3.4-5.0); Bilirubin Total 0.5 mg/dL (0.2-1.0); Potassium 5.2 mmol/L (3.5-5.1); Protein, Total 6.7 g/dL (6.4-8.2)
[2022-03-26] MEDS ORDERED: VANCOMYCIN 1.25 GM in NA CHLORIDE 0.9% 250 ML IVPB SCH (06:00)
[2022-03-26 06:47] LABS: Blood Morphology Comment NOT SEEN (NOT SEEN); Platelet Estimate ADEQ; Toxic Granulation PRESENT
[2022-03-26] MEDS: CEFEPIME 1 GM in NA CHLORIDE 0.9% 100 ML IV SCH (09:00)
[2022-03-26] MEDS ORDERED: VALSARTAN 160 MG TAB PO SCH (09:00)
[2022-03-26] MEDS: HYDRALAZINE HCL 20 MG/ML VIAL IV PRN (09:21)
[2022-03-26] MEDS: FAMOTIDINE 20 MG TAB PO SCH ×2 (09:21→23:16)
[2022-03-26] MEDS: ASPIRIN EC 81 MG TAB PO SCH (09:21)
[2022-03-26] MEDS: HEPARIN 5000 UNIT/ML 1 ML VIAL SQ SCH ×2 (09:24→23:16)
[2022-03-26] MEDS ORDERED: FUROSEMIDE 40 MG/4 ML VIAL IV ONE (12:30)
--- NOTE | 2022-03-26 12:45 | PN ---
Subjective: The patient is lying in bed, feeling slightly tired and not feeling as good as yesterday . Objective: Vital Signs: Temperature 97.9, pulse 93, respirations 18, blood pressure 230/105. Lungs: Basal crackles. Heart: S1, S2. Regular. Abdomen: Soft, nontender. Bowel sounds present. Extremity: Trace edema. Erythematous changes have decreased, except left arm where a blood pressure cuff has been applied. Laboratory Data: Shows WBC 26,000, hemoglobin 9.8, platelets 297. Chemistry shows sodium 139, potas sium 5.2, chloride 111, bicarb 23, BUN 27, creatinine 0.9, glucose 130. Albumin level is 2.4. Assessment And Plan: The patient with WBC of 26,000 most likely secondary to steroid therapy, cellul itis of lower extremity. Recommend to stop cefepime, continue vancomycin. Rash most likely secondar y to sulfa drugs, currently on high-dose steroids. Hypertension, leave management to the medical hos pitalist team. Continue supportive care and antibiotic with vancomycin. We will follow the patient closely. NF/MODL Voice ID: [id number] Report ID: [id number]
[2022-03-26] MEDS ORDERED: FAMOTIDINE 20 MG TAB PO ONE (13:52)
[2022-03-26] MEDS: predniSONE 20 MG TAB PO SCH ×2 (14:01→23:16)
[2022-03-26] MEDS: DIPHENHYDRAMINE 50 MG/ML VIAL IV PRN (14:01)
--- NOTE | 2022-03-26 14:18 | ECHO ---
HEIGHT: 5 ft 6 in WEIGHT: 285 lb 0 oz DATE OF STUDY: 03/26/[address]: Dash Kinney MD 2-DIMENSIONAL: YES M.MODE: YES DOPPLER: NO COLOR FLOW: NO TDS: NO PORTABLE: YES DEFINITY: NO BUBBLE STUDY: NO DIAGNOSIS: ELEVATED TROPONIN CARDIAC HISTORY: CATHERIZATION: NO SURGERY: NO PROSTHETIC VALVE: NO PACEMAKER: NO MEASUREMENTS (cm) DIASTOLIC (NORMALS) SYSTOLIC (NORMALS) IVSd 1.1 (0.6-1.2) LA Diam 3.0 (1.9-4.0) LVEF 68% LVIDd 4.2 (3.5-5.7) LVIDs 2.7 (2.0-3.5) %FS 37% LVPWd 1.3 (0.6-1.2) Ao Diam 2.5 (2.0-3.7) 2 DIMENSIONAL ASSESSMENT: RIGHT ATRIUM: NORMAL LEFT ATRIUM: NORMAL RIGHT VENTRICLE: NORMAL LEFT VENTRICLE: NORMAL TRICUSPID VALVE: NORMAL MITRAL VALVE: NORMAL PULMONIC VALVE: NORMAL AORTIC VALVE: NORMAL PERICARDIAL EFFUSION: NONE AORTIC ROOT: NORMAL LEFT VENTRICULAR WALL MOTION: NORMAL. DOPPLER/COLOR FLOW: NORMAL. COMMENTS: NORMAL 2 ECHO WITH DOPPLER. NO WALL MOTION ABNORMALITY. NO EFFUSION. TECHNOLOGIST: BERENICE STUBBS
--- NOTE | 2022-03-26 14:29 | RAD REPORT ---
EXAM DESCRIPTION: RAD - Chest Single View - 03/26/2022 2:23 pm CLINICAL HISTORY: COPD COMPARISON: None TECHNIQUE: AP portable chest image was obtained 03/26/2022 2:23 pm . FINDINGS: No focal mass or consolidation. Interstitial pattern is accentuated by body habitus and un gonzalez penetrated portable technique. A mild interstitial edema or infiltrate could be masked. Heart size is upper normal. Central vasculature is mildly prominent. No measurable pleural effusion and no pneumothorax. No acute bony abnormality seen. No acute aortic findings suspected. IMPRESSION: Heart, vasculature lung markings are all accentuated by under penetrated portable techni que. Mild interstitial edema or interstitial infiltrate could be masked.
[2022-03-26] MEDS: HYDRALAZINE HCL 25 MG TABLET PO SCH ×2 (15:21→23:16)
[2022-03-26] MEDS ORDERED: LIDOCAINE 1% MPF 5 ML VIAL ONE (15:44)
--- NOTE | 2022-03-26 16:31 | PN ---
Date of Progress Note: 03/26/2022 Subjective: The patient was admitted with acute kidney injury. Her acute kidney injury is secondary to prerenal/AIN secondary to the Bactrim. Obstructive uropathy has been ruled out. Physical Examination: Vital Signs: When I saw the patient; blood pressure 131/105, pulse of 93, afebrile. The patient had good urine output of 2800, positive of 1300. Chest: Decreased entry bilateral base. Heart: S1, S2. Regular. Abdomen: Morbidly obese. Extremity: Plus edema. Neuro: Alert. No focality. Skin: Has rash on the upper side of the body. Laboratory Data: Sodium 139, potassium 5.2, bicarb 23, BUN 27, creatinine 0.9, GFR of 67, calcium 8.8. Albumin 2.4, corrected calcium is 10, PC ratio 0.7. Renal ultrasound, 05/18 increased echogenicity. Current Medications: The patient on include diphenhydramine, aspirin, hydralazine p.r.n., dexamethasone. Assessment And Plan: 1. Acute kidney injury, multifactorial secondary to Bactrim/AIN/poor perfusion ATN/ATN secondary to sepsis, recovered, resolved, nonoliguric, looked to me the patient currently on the over volume side. I am going to go ahead and get chest x-ray for the patient. We will give the patient a single dose of Lasix and we will stop any IV fluid and we will monitor the patient. 2. Hypertension, not controlled. I will start the patient on carvedilol and hydralazine and we will follow up. 3. Foot infection. Follow up with primary. 4. Allergic reaction to Bactrim. The patient on dexamethasone. We will follow up. Time spent examining the patient [id number], reviewing the data lab and radiology, placing orders, discussing with the patient, explaining risks, benefits, alternatives, discussing with the staff member including nursing discussing with the hospitalist more than 35 minutes. AIDEN Voice ID: [id number] Report ID: [id number] JADEN
[2022-03-26] MEDS: carvediloL 6.25 MG TAB PO SCH (17:34)
[2022-03-26] MEDS ORDERED: HOME MED 1 EA UNK (Olmesartan Medoxomil [Olmesartan Medoxomil] 40 MG Tablet) PO SCH (18:27)
--- NOTE | 2022-03-26 19:30 | P.PN ---
Subjective Date of Service: 03/26/22 Chief Complaint: Severe sepsis, ARF No acute events overnight. Her rash appears to be improving with less erythema. She stated that she would prefer not to be transferred. Spoke with Dr. Fang, will plan to obtain skin punch biopsy here. He will verify with our pathologist to see if we can run diagnostic testing at our facility. Review of Systems 10-point ROS is otherwise unremarkable Integumentary: Rash (diffuse rash) Physical Examination - Vital Signs Temperature: 98.9 F Blood Pressure: 167/78 Pulse: 93 Respirations: 18 Pulse Ox (%): 94 Assessment And Plan - Plan - Physical Exam General: Alert, In no apparent distress, Oriented x3 HEENT: Atraumatic, PERRLA, Mucous membr. moist/pink, EOMI, Sclerae nonicteric Neck: Supple, JVD not distended Respiratory: Clear to auscultation bilaterally, Normal air movement Cardiovascular: No edema, Regular rate/rhythm, Normal S1 S2, No gallops, No rubs, No murmurs Gastrointestinal: Normal bowel sounds, Soft and benign, Non-distended, No tenderness, No rebound, No guarding Musculoskeletal: No clubbing Integumentary: Rash(es) (diffuse morbiliform rash with scattered macules and papules, seems to be improving) Neurological: Normal speech, Cranial nerves 3-12 intact, Abnormal speech # Severe Sepsis likely secondary to Left Lower Extremity Cellulitis/Diabetic Foot Wound # Acute Kidney Injury suspect due to Sepsis, resoved She met SIRS criteria based on temperature > 100.9 F, WBC > 12,000 and the suspected source is cellulitis +/- diabetic foot ulcers. 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 Other differential diagnoses include, but are not limited to, Bactrim-induced vs vasculitis. - Continue dexamethasone, diphenhydramine, famotidine - Transfer cancelled per Lara' request - Dr. Fang will look into obtaining skin punch biopsy at our facility if pathology is able to interpret without Dermatology # Suspect Type II NSTEMI (Demand Ischemia) # Hypertension # Hyperlipidemia - Cardiology consulted and spoke with Dr. Vang - recommendations appreciated - Serial troponin = 235.9 -> 280.6 -> 933.3 -> 579.5 -> 460.1 - Transthoracic echocardiogram = pending # Deconditioning - Consulted PT - recs appreciated Dash Kinney M.D.
--- NOTE | 2022-03-27 02:07 | OP ---
Date of Procedure: 03/26/2022 Surgeon: Berto Fang MD Indications: The patient is a 57-year-old female who was initially consulted last Thursday for wound and cellulitis of the left lower extremity and a rash. The patient was being treated with steroids and the rash is getting better and the antibiotics were helping the cellulitis. However, there was n o definitive diagnosis and concern was made that a skin biopsy would help elucidate the diagnosis and therefore help modify the treatment options for the patient. I discussed the case with Dr. Gregoria mayfield informed consent was obtained from the patient. She understands the risks, benefits, and alternati ves for a punch biopsy. The patient agreed to the procedure. Procedure In Detail: The patient was prepped and draped in usual sterile fashion. In the left upper thigh, lidocaine 1% infiltrated at the bed side. Then 3 mm punch biopsy x2 was done, one was sent f or cytology and the other for culture including fungus, AFB, and bacterial infection. Pressure was a pplied to control the bleeding and a sterile dressing was applied. The patient tolerated the procedu re in stable condition. /MODL Voice ID: [id number] Report ID: [id number]
[2022-03-27 05:46] LABS: Absolute Lymphocytes (CBC) 2.2 K/uL (0.7-4.9); Hematocrit 35.3 % (36.0-45.0); Lymphocytes % 10.3 % (15.3-44.8); MCV 88.6 fL (80-100); MPV 8.2 fL (7.6-11.3); RBC Red Blood Cell Count 3.98 M/uL (3.86-4.86)
[2022-03-27 06:10] LABS: Potassium 4.5 mmol/L (3.5-5.1)
[2022-03-27 09:25] LABS: Blood Morphology Comment NOT SEEN (NOT SEEN); Platelet Estimate ADEQ
[2022-03-27] MEDS: carvediloL 6.25 MG TAB PO SCH ×2 (09:45→16:24)
[2022-03-27] MEDS: predniSONE 20 MG TAB PO SCH ×2 (09:46→20:32)
[2022-03-27] MEDS: HEPARIN 5000 UNIT/ML 1 ML VIAL SQ SCH ×2 (09:46→20:32)
[2022-03-27] MEDS: ASPIRIN EC 81 MG TAB PO SCH (09:46)
[2022-03-27] MEDS: HYDRALAZINE HCL 25 MG TABLET PO SCH ×3 (09:46→20:32)
[2022-03-27] MEDS: FAMOTIDINE 20 MG TAB PO SCH ×2 (09:46→20:32)
[2022-03-27] MEDS: FLUOCINONIDE 0.05% CREAM 30GM TOP PRN (13:00)
[2022-03-27] MEDS: DIPHENHYDRAMINE 50 MG/ML VIAL IV PRN ×2 (13:05→20:30)
--- NOTE | 2022-03-27 13:56 | PN ---
Date of Progress Note: 03/27/2022 Subjective: The patient was admitted with acute kidney injury, multifactorial, secondary to prerenal, poor perfusion ATN/AIN secondary to Bactrim use. Yesterday, the patient received a dose of Lasix. According to her, her rash got worse, but her respiratory status has been improved. Physical Examination: Vital Signs: When I saw the patient; blood pressure of 178/86, pulse of 85, afebrile. The patient had good urine output of 1600 even balance. Chest: Faint rales bilateral. Heart: S1, S2. Systolic murmur. Abdomen: Soft, nontender. Morbidly obese. Could not appreciate any organomegaly. Extremities: Trace edema. Neurological: Alert, oriented x3. No focal. Skin: Has erythematous macular rash, more prominent on the upper extremity. Laboratory Data: WBC 21.6, H and H 11.7/35.3, platelets 312. Eosinophil is 100, it was elevated up to 800 before. Urinalysis; PC ratio 0.7. Current Medications: The patient on include aspirin, diphenhydramine, carvedilol 6.25, hydralazine 25 t.i.d., Pepcid, prednisone. Assessment And Plan: 1. Acute kidney injury, multifactorial, poor perfusion, ATN/toxic ATN/AIN secondary to Bactrim, recovered, resolved, still looked to me on the over volume side. I am going to go ahead and start the patient on ethacrynic acid as the patient cannot be exposed to any sulfa component given the Bactrim incident and furosemide yesterday. 2. Hypertension, not controlled. We just started hydralazine. We will add ethacrynic and we will follow up. 3. Foot infection. Continue current antibiotic. We will follow up with primary. 4. Allergic reaction to the Bactrim. The patient is on prednisone and we will follow up. Start the patient on ethacrynic acid. Time spent examining the patient [id number], reviewing the data lab and radiology, placing orders, discussing with the patient, explaining risks, benefits, alternatives, discussing with the staff member including nursing discussing with the hospitalist more than 35 minutes. VANE/KATHLEEN Voice ID: [id number] Report ID: [id number] MTDD
--- NOTE | 2022-03-27 15:29 | PN ---
Subjective: The patient is feeling better today, except her rash has worsened after she has Lasix. The patient denies any headache, nausea, vomiting, chest pain, abdominal pain, constipation, or diarr hea. Objective: Vital Signs: Temperature 97.8, pulse 85, respirations 16, blood pressure 178/86. Lungs: Basal crackles. Heart S1, S2. Regular. Abdomen: Soft, nontender. Bowel sounds present. Extremity: Trace edema. Laboratory Data: Chest x-ray done yesterday shows the patient has vascular lungs marking attenuated, mild interstitial edema or interstitial infiltrate could be masked. Lab data shows WBC 21,000 down from 26,000, hemoglobin 11.7, platelets 312. Chemistry shows sodium 135, potassium 4.5, chloride 108 , bicarb 23, BUN 28, creatinine 0.9. Assessment And Plan: Drug rash from most likely from sulfa drugs. The patient is off antibiotic sin ce yesterday, feeling better except trash after Lasix. The patient to continue to monitor for any si gns of infection. No active signs of infection noted except elevated WBC count which is most likely secondary to steroid therapy, should come down as steroids are be escalating. We will follow the pat ient closely for any signs of infection with WBC and fever trends. NF/MODL Voice ID: [id number] Report ID: [id number]
[2022-03-27] MEDS: AMLODIPINE 5 MG TAB PO SCH (16:02)
--- NOTE | 2022-03-27 19:53 | P.PN ---
Subjective Date of Service: 03/27/22 Chief Complaint: Severe sepsis, ARF No acute events overnight. She worked with PT yesterday, and had significant weakness. It was recommended that she go to inpatient rehab for deconditioning. She is in agreement with this plan. Review of Systems 10-point ROS is otherwise unremarkable General: Weakness Integumentary: Rash (generalized) Physical Examination - Vital Signs Temperature: 98.7 F Blood Pressure: 137/73 Pulse: 73 Respirations: 16 Pulse Ox (%): 95 - Studies Microbiology Data (last 24 hrs): 03/21/22 22:37 Blood - Blood Aerobic Blood Culture - Final No growth in 5 days. 03/21/22 22:37 Blood - Blood Anaerobic Blood Culture - Final No growth in 5 days. Assessment And Plan - Plan - Physical Exam General: Alert, In no apparent distress, Oriented x3 HEENT: Atraumatic, PERRLA, Mucous membr. moist/pink, EOMI, Sclerae nonicteric Neck: Supple, JVD not distended Respiratory: Clear to auscultation bilaterally, Normal air movement Cardiovascular: No edema, Regular rate/rhythm, Normal S1 S2, No gallops, No rubs, No murmurs Gastrointestinal: Normal bowel sounds, Soft and benign, Non-distended, No tenderness, No rebound, No guarding Musculoskeletal: No clubbing Integumentary: Rash(es) (diffuse morbiliform rash with scattered macules and papules, peeling - much improved from prior) Neurological: Normal speech, Cranial nerves 3-12 intact, Abnormal speech # Severe Sepsis likely secondary to Left Lower Extremity Cellulitis/Diabetic Foot Wound # Acute Kidney Injury suspect due to Sepsis, resoved She met SIRS criteria based on temperature > 100.9 F, WBC > 12,000 and the suspected source is cellulitis +/- diabetic foot ulcers. 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 Other differential diagnoses include, but are not limited to, Bactrim-induced vs vasculitis. - Continue dexamethasone, diphenhydramine, famotidine - Transfer cancelled per Ms. Lara' request - Dr. Fang will look into obtaining skin punch biopsy at our facility if pathology is able to interpret without Dermatology # Suspect Type II NSTEMI (Demand Ischemia) # Hypertension # Hyperlipidemia - Cardiology consulted and spoke with Dr. Vang - recommendations appreciated - Serial troponin = 235.9 -> 280.6 -> 933.3 -> 579.5 -> 460.1 - Transthoracic echocardiogram = pending # Deconditioning - Consulted PT - recs appreciated Disposition is pending placement - appreciate Case Management assistance Dash Kinney M.D. Discharge Plan: Transfer (rehab) Plan to discharge in: Unknown
[2022-03-27] MEDS: ACETAMINOPHEN 500 MG TAB PO PRN (20:30)
[2022-03-28 06:19] LABS: Absolute Lymphocytes (CBC) 2.1 K/uL (0.7-4.9); Hematocrit 34.8 % (36.0-45.0); Lymphocytes % 11.5 % (15.3-44.8); MCV 88.4 fL (80-100); MPV 7.8 fL (7.6-11.3); RBC Red Blood Cell Count 3.94 M/uL (3.86-4.86)
[2022-03-28 06:32] LABS: Albumin 2.2 g/dL (3.4-5.0); Bilirubin Total 0.4 mg/dL (0.2-1.0); Potassium 4.7 mmol/L (3.5-5.1); Protein, Total 6.4 g/dL (6.4-8.2)
[2022-03-28] MEDS: DIPHENHYDRAMINE 50 MG/ML VIAL IV PRN ×3 (07:17→21:10)
[2022-03-28] MEDS: AMLODIPINE 5 MG TAB PO SCH (08:59)
[2022-03-28] MEDS: carvediloL 6.25 MG TAB PO SCH ×2 (08:59→16:27)
[2022-03-28] MEDS: HYDRALAZINE HCL 25 MG TABLET PO SCH ×3 (08:59→21:08)
[2022-03-28] MEDS: ASPIRIN EC 81 MG TAB PO SCH (08:59)
[2022-03-28] MEDS: predniSONE 20 MG TAB PO SCH ×2 (08:59→21:08)
[2022-03-28] MEDS: FAMOTIDINE 20 MG TAB PO SCH ×2 (09:00→21:08)
[2022-03-28] MEDS: HEPARIN 5000 UNIT/ML 1 ML VIAL SQ SCH ×2 (09:00→21:09)
[2022-03-28] MEDS: ETHACRYNIC ACID 25 MG TABLET PO SCH (09:00)
[2022-03-28] MEDS: ACETAMINOPHEN 500 MG TAB PO PRN ×2 (09:01→21:08)
--- NOTE | 2022-03-28 10:23 | P.PN ---
Subjective Date of Service: 03/28/22 Chief Complaint: Severe sepsis, ARF Subjective: Other (Reports having less itching.) Physical Examination - Vital Signs Temperature: 98.3 F Blood Pressure: 142/67 Pulse: 69 Respirations: 14 Pulse Ox (%): 96 - Physical Exam General: Alert, In no apparent distress HEENT: Atraumatic, Normocephalic Neck: Supple, JVD not distended Respiratory: Other (Symmetric chest expansion) Cardiovascular: No rubs, No murmurs Gastrointestinal: Soft and benign, No rebound Musculoskeletal: No clubbing Integumentary: No warmth, Other (+diffuse rash, resolving) Neurological: Normal speech, Normal tone Urinary: Other (No bladder distention) External genitalia: Deferred Rectal: Deferred Assessment And Plan - Plan # BRITTNEY 2/2 prerenal state/septic ATN + urinary retention Resolved [place] po fluid intake OOB as tolerated to lessen bladder hypomobility Monitor for recurrent urinary retention Monitor I/O, renal panel # Severe sepsis 2/2 DM foot wound Sepsis improved Abx per primary team # Diffuse rash likely 2/2 drug reaction Rash also seen in palms & soles Bactrim d/c'ed previously S/p skin biopsy, f/u result Receiving steroids # Htn Cont current med regimen # Hx of GBS PT/OT
[2022-03-28] MEDS ORDERED: EDECRIN PO SCH (12:00)
[2022-03-28] MEDS: ONDANSETRON 4 MG/2 ML VIAL IV PRN ×2 (18:29→23:38)
--- NOTE | 2022-03-28 19:21 | P.PN ---
Subjective Date of Service: 03/28/22 Chief Complaint: Severe sepsis, ARF No acute events overnight. Her rash has improved significantly. She has no concerns this morning. She is eager for discharge once accepted to inpatient rehab. Review of Systems 10-point ROS is otherwise unremarkable Integumentary: Rash (diffuse) Physical Examination - Vital Signs Temperature: 98.2 F Blood Pressure: 163/72 Pulse: 71 Respirations: 12 Pulse Ox (%): 97 Assessment And Plan - Plan - Physical Exam General: Alert, In no apparent distress, Oriented x3 HEENT: Atraumatic, PERRLA, Mucous membr. moist/pink, EOMI, Sclerae nonicteric Neck: Supple, JVD not distended Respiratory: Clear to auscultation bilaterally, Normal air movement Cardiovascular: No edema, Regular rate/rhythm, Normal S1 S2, No gallops, No rubs, No murmurs Gastrointestinal: Normal bowel sounds, Soft and benign, Non-distended, No tenderness, No rebound, No guarding Musculoskeletal: No clubbing Integumentary: Rash(es) (diffuse morbiliform rash with scattered macules and papules, peeling - much improved from prior) Neurological: Normal speech, Cranial nerves 3-12 intact, Abnormal speech # Severe Sepsis likely secondary to Left Lower Extremity Cellulitis/Diabetic Foot Wound # Acute Kidney Injury suspect due to Sepsis, resoved She met SIRS criteria based on temperature > 100.9 F, WBC > 12,000 and the suspected source is cellulitis +/- diabetic foot ulcers. 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 Other differential diagnoses include, but are not limited to, Bactrim-induced vs vasculitis. - Continue dexamethasone, diphenhydramine, famotidine - Transfer cancelled per Ms. Lara' request - Dr. Fang will look into obtaining skin punch biopsy at our facility if pathology is able to interpret without Dermatology - ASO titer <50 - Total compliment >60 # Suspect Type II NSTEMI (Demand Ischemia) # Hypertension # Hyperlipidemia - Cardiology consulted and spoke with Dr. Vang - recommendations appreciated - Serial troponin = 235.9 -> 280.6 -> 933.3 -> 579.5 -> 460.1 - Transthoracic echocardiogram = "normal 2 echo with doppler. no wall motion abnormality. no effusion." # Deconditioning - Consulted PT - recs appreciated Disposition is pending placement - appreciate Case Management assistance Dash Kinney M.D. Discharge Plan: Transfer (rehab) Plan to discharge in: Unknown
[2022-03-28] MEDS ORDERED: MORPHINE 2 MG/ML SYR IV ONE (20:57)
[2022-03-28] MEDS: HYDRALAZINE HCL 20 MG/ML VIAL IV PRN (23:45)
[2022-03-29] MEDS: ONDANSETRON 4 MG/2 ML VIAL IV PRN (04:50)
[2022-03-29] MEDS: ETHACRYNIC ACID 25 MG TABLET PO SCH (09:00)
[2022-03-29] MEDS: AMLODIPINE 5 MG TAB PO SCH (09:27)
[2022-03-29] MEDS: HYDRALAZINE HCL 25 MG TABLET PO SCH ×3 (09:27→21:08)
[2022-03-29] MEDS: HEPARIN 5000 UNIT/ML 1 ML VIAL SQ SCH ×2 (09:28→21:07)
[2022-03-29] MEDS: ASPIRIN EC 81 MG TAB PO SCH (09:28)
[2022-03-29] MEDS: FAMOTIDINE 20 MG TAB PO SCH ×2 (09:28→21:08)
[2022-03-29] MEDS: carvediloL 6.25 MG TAB PO SCH ×2 (09:28→16:10)
[2022-03-29] MEDS: predniSONE 20 MG TAB PO SCH ×2 (09:28→21:08)
--- NOTE | 2022-03-29 14:40 | P.PN ---
Subjective Date of Service: 03/29/22 Chief Complaint: Severe sepsis, ARF Overnight, she states that she received a dose of morphine. Following administration of this medication, she developed an urticarial rash on her right arm. She states that she believes that she is allergic to morphine, but cannot remember. She request that we add this to her medication allergy list. Otherwise, she reports no acute concerns this morning. Review of Systems Integumentary: Rash (diffuse) Physical Examination - Vital Signs Temperature: 98.3 F Blood Pressure: 141/70 Pulse: 75 Respirations: 14 Pulse Ox (%): 98 Assessment And Plan - Plan - Physical Exam General: Alert, In no apparent distress, Oriented x3 HEENT: Atraumatic, PERRLA, Mucous membr. moist/pink, EOMI, Sclerae nonicteric Neck: Supple, JVD not distended Respiratory: Clear to auscultation bilaterally, Normal air movement Cardiovascular: No edema, Regular rate/rhythm, Normal S1 S2, No gallops, No r ubs, No murmurs Gastrointestinal: Normal bowel sounds, Soft and benign, Non-distended, No tenderness, No rebound, No guarding Musculoskeletal: No clubbing Integumentary: Rash(es) (diffuse morbiliform rash with scattered macules and papules, peeling - much improved from prior) - new urticaria on medial right upper arm Neurological: Normal speech, Cranial nerves 3-12 intact, Abnormal speech # Severe Sepsis likely secondary to Left Lower Extremity Cellulitis/Diabetic Foot Wound # Acute Kidney Injury suspect due to Sepsis, resoved She met SIRS criteria based on temperature > 100.9 F, WBC > 12,000 and the suspected source is cellulitis +/- diabetic foot ulcers. 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 Other differential diagnoses include, but are not limited to, Bactrim-induced vs vasculitis. - Continue dexamethasone, diphenhydramine, famotidine - Transfer cancelled per Ms. Lara' request - Dr. Fang will look into obtaining skin punch biopsy at our facility if pathology is able to interpret without Dermatology - ASO titer <50 - Total compliment >60 - Started montelukast # Suspect Type II NSTEMI (Demand Ischemia) # Hypertension # Hyperlipidemia - Cardiology consulted and spoke with Dr. Vang - recommendations appreciated - Serial troponin = 235.9 -> 280.6 -> 933.3 -> 579.5 -> 460.1 - Transthoracic echocardiogram = "normal 2 echo with doppler. no wall motion abnormality. no effusion." # Deconditioning - Consulted PT - recs appreciated Disposition is pending placement - appreciate Case Management assistance Dash Kinney M.D. Discharge Plan: Transfer (rehab) Plan to discharge in: Unknown
[2022-03-29] MEDS: ACETAMINOPHEN 500 MG TAB PO PRN (21:08)
[2022-03-29] MEDS: MONTELUKAST 10 MG TAB PO SCH (21:08)
[2022-03-29] MEDS: DIPHENHYDRAMINE 50 MG/ML VIAL IV PRN (21:09)
--- NOTE | 2022-03-30 00:42 | PN ---
Date of Progress Note: 03/29/2022 Chief Complaint: Severe sepsis, acute kidney injury. Review of Systems: Patient denies fever, chills. Physical Examination: Lungs: Clear to auscultation bilaterally. Heart: S1, S2. Abdomen: Soft, benign. Extremities: Slight edema. Impression And Plan: 1.Acute kidney injury secondary to prerenal state with septic acute tubular necrosis complicated by urinary retention. Renal function has improved to baseline. Acute kidney injury, resolved. Continu e adequate hydration. Avoid nephrotoxic medication. Patient cannot take nonsteroidal anti-inflammat ory medication. Monitor I's and O's and renal panel. Monitor for any evidence of recurrent urinary retention. 2.Severe sepsis secondary to diabetic foot infection. Sepsis has improved. Patient will continue a ntibiotics as per primary team. Adjust dose to renal function. 3.Hypertension. Continue current medication. MARTHA/KATHLEEN Voice ID: [id number] Report ID: [id number]
[2022-03-30 06:05] LABS: Absolute Lymphocytes (CBC) 2.3 K/uL (0.7-4.9); Hematocrit 35.1 % (36.0-45.0); Lymphocytes % 9.8 % (15.3-44.8); MCV 88.2 fL (80-100); MPV 7.6 fL (7.6-11.3); RBC Red Blood Cell Count 3.98 M/uL (3.86-4.86)
[2022-03-30 06:18] LABS: Albumin 2.4 g/dL (3.4-5.0); Bilirubin Total 0.4 mg/dL (0.2-1.0); Potassium 4.8 mmol/L (3.5-5.1); Protein, Total 6.3 g/dL (6.4-8.2)
[2022-03-30] MEDS: ETHACRYNIC ACID 25 MG TABLET PO SCH (09:00)
[2022-03-30] MEDS: FAMOTIDINE 20 MG TAB PO SCH ×2 (09:09→21:04)
[2022-03-30] MEDS: carvediloL 6.25 MG TAB PO SCH ×2 (09:09→17:35)
[2022-03-30] MEDS: HYDRALAZINE HCL 25 MG TABLET PO SCH ×3 (09:09→21:04)
[2022-03-30] MEDS: AMLODIPINE 5 MG TAB PO SCH (09:09)
[2022-03-30] MEDS: HEPARIN 5000 UNIT/ML 1 ML VIAL SQ SCH ×2 (09:09→21:21)
[2022-03-30] MEDS: ASPIRIN EC 81 MG TAB PO SCH (09:09)
[2022-03-30] MEDS: predniSONE 20 MG TAB PO SCH ×2 (09:10→21:04)
[2022-03-30 10:08] LABS: Smudge Cells PRESENT
[2022-03-30 10:10] LABS: Blood Morphology Comment NOTED (NOT SEEN); Platelet Estimate ADEQ; Toxic Granulation PRESENT
[2022-03-30 10:11] LABS: Polychromasia SLIGHT
[2022-03-30] MEDS ORDERED: HYDROCORTISONE 1 % OINT 30GM TOP PRN ×2 (10:54→11:00)
[2022-03-30] MEDS: LACTOBACILLUS/ACIDOPHILUS TAB PO SCH (13:49)
--- NOTE | 2022-03-30 19:45 | P.PN ---
Subjective Date of Service: 03/30/22 Chief Complaint: Severe sepsis, ARF No acute events overnight. She states that her rash is slightly pruritic this morning and requests a topical cream. Additionally, she requests a probiotic. Topical hydrocortisone and PO lactobacillus was started. No additional concerns this morning. Review of Systems 10-point ROS is otherwise unremarkable Integumentary: Rash (diffuse, pruritic) Physical Examination - Vital Signs Temperature: 98.4 F Blood Pressure: 161/72 Pulse: 67 Respirations: 14 Pulse Ox (%): 95 Assessment And Plan - Plan - Physical Exam General: Alert, In no apparent distress, Oriented x3 HEENT: Atraumatic, PERRLA, Mucous membr. moist/pink, EOMI, Sclerae nonicteric Neck: Supple, JVD not distended Respiratory: Clear to auscultation bilaterally, Normal air movement Cardiovascular: No edema, Regular rate/rhythm, Normal S1 S2, No gallops, No rubs, No murmurs Gastrointestinal: Normal bowel sounds, Soft and benign, Non-distended, No tenderness, No rebound, No guarding Musculoskeletal: No clubbing Integumentary: Rash(es) (diffuse morbiliform rash with scattered macules and papules, peeling - significantly improved from prior) - improving urticaria on medial right upper arm Neurological: Normal speech, Cranial nerves 3-12 intact, Abnormal speech # Severe Sepsis likely secondary to Left Lower Extremity Cellulitis/Diabetic Foot Wound # Acute Kidney Injury suspect due to Sepsis, resolved She met SIRS criteria based on temperature > 100.9 F, WBC > 12,000 and the suspected source is cellulitis +/- diabetic foot ulcers. 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 Other differential diagnoses include, but are not limited to, Bactrim-induced vs vasculitis. - Continue dexamethasone, diphenhydramine, famotidine - Transfer cancelled per Ms. Lara' request - Dr. Fnag will look into obtaining skin punch biopsy at our facility if pathology is able to interpret without Dermatology - ASO titer <50 - Total compliment >60 - Started montelukast, topical hydrocortisone # Suspect Type II NSTEMI (Demand Ischemia) # Hypertension # Hyperlipidemia - Cardiology consulted and spoke with Dr. Vang - recommendations appreciated - Serial troponin = 235.9 -> 280.6 -> 933.3 -> 579.5 -> 460.1 - Transthoracic echocardiogram = "normal 2 echo with doppler. no wall motion abnormality. no effusion." # Deconditioning - Consulted PT - recs appreciated Disposition is pending placement - appreciate Case Management assistance Dash Kinney M.D. Discharge Plan: Transfer (acute rehab) Plan to discharge in: Unknown
[2022-03-30] MEDS: MONTELUKAST 10 MG TAB PO SCH (21:03)
[2022-03-30] MEDS: DIPHENHYDRAMINE 50 MG/ML VIAL IV PRN (21:16)
--- NOTE | 2022-03-30 23:28 | PN ---
Date of Progress Note: 03/30/2022 Chief Complaint: Severe sepsis, acute kidney injury. Subjective: The patient is feeling better. She was medicated for nausea and vomiting. Objective: Abdomen: Soft, benign. Extremities: Slight edema. Lungs: Clear to auscultation bilaterally. Impression And Plan: 1.Acute kidney injury secondary to prerenal state with septic acute tubular necrosis complicated by urinary retention. Renal function has improved to baseline. Acute kidney injury, resolved. Continu e adequate hydration. Monitor intake and output. Avoid nephrotoxic medication. The patient cannot take nonsteroidal anti-inflammatory medication. Monitor for any evidence of urinary retention. The patient may need Messina catheter if there is very significant urinary retention. 2.Severe sepsis secondary to diabetic foot infection. Sepsis has improved. Continue wound care and antibiotics. 3.Hypertension. Continue current treatment. MARTHA/MODL Voice ID: [id number] Report ID: [id number]
[2022-03-31] MEDS: ACETAMINOPHEN 500 MG TAB PO PRN (02:03)
[2022-03-31 05:41] LABS: Absolute Lymphocytes (CBC) 1.8 K/uL (0.7-4.9); Hematocrit 33.8 % (36.0-45.0); Lymphocytes % 7.5 % (15.3-44.8); MCV 87.5 fL (80-100); MPV 7.5 fL (7.6-11.3); RBC Red Blood Cell Count 3.86 M/uL (3.86-4.86)
[2022-03-31 06:03] LABS: Albumin 2.5 g/dL (3.4-5.0); Bilirubin Total 0.4 mg/dL (0.2-1.0); Protein, Total 6.5 g/dL (6.4-8.2)
[2022-03-31] MEDS: HEPARIN 5000 UNIT/ML 1 ML VIAL SQ SCH ×2 (07:50→21:06)
[2022-03-31] MEDS: predniSONE 20 MG TAB PO SCH ×2 (07:51→21:07)
[2022-03-31] MEDS: FAMOTIDINE 20 MG TAB PO SCH ×2 (07:51→21:07)
[2022-03-31] MEDS: carvediloL 6.25 MG TAB PO SCH ×2 (07:52→16:38)
[2022-03-31] MEDS: AMLODIPINE 5 MG TAB PO SCH (07:52)
[2022-03-31] MEDS: ASPIRIN EC 81 MG TAB PO SCH (07:52)
[2022-03-31] MEDS: ETHACRYNIC ACID 25 MG TABLET PO SCH (07:53)
[2022-03-31] MEDS: HYDRALAZINE HCL 25 MG TABLET PO SCH ×3 (07:53→21:07)
[2022-03-31] MEDS: LACTOBACILLUS/ACIDOPHILUS TAB PO SCH (07:53)
[2022-03-31] MEDS ORDERED: LACTOBACILLUS/ACIDOPHILUS TAB PO SCH (09:00)
--- NOTE | 2022-03-31 16:11 | PN ---
Subjective: The patient is doing much better today. Denies any headache, nausea, vomiting, chest pa in, abdominal pain, constipation, or diarrhea. Objective: Vital Signs: Temperature 97, pulse 70, respirations 16, blood pressure 167/59. Lungs: Basal crackles. Heart: S1, S2. Regular. Abdomen: Soft, nontender. Bowel sounds present. Extremity: Trace edema. Laboratory Data: Shows WBC 23,000, hemoglobin 11.5, platelets 338. Assessment And Plan: Sulfa drug allergy, rash is improving. Consider decreasing steroid dosage. Co ntinue supportive care. We will continue to monitor the patient as off antibiotic at this time. Sta tus post treatment of cellulitis. We will follow the patient closely. NF/MODL Voice ID: [id number] Report ID: [id number]
[2022-03-31] MEDS: MONTELUKAST 10 MG TAB PO SCH (21:07)
--- NOTE | 2022-04-01 01:17 | PN ---
Date of Progress Note: 03/31/2022 Chief Complaint: Severe sepsis, acute kidney injury. History Of Present Illness: The patient is feeling better, she denies nausea, vomiting. Review of Systems: Denies chest pain, palpitations. Denies headaches, vision changes. Physical Examination: Abdomen: Soft, benign. Extremities: Slight edema. Lungs: Clear to auscultation bilaterally. Heart: S1, S2. Impression And Plan: 1.Acute kidney injury secondary to prerenal state with septic acute tubular necrosis complicated by urinary retention. 2.Renal function has improved to baseline. Acute kidney injury, resolved. Continue adequate hydrat ion. Monitor intake and output. Avoid nephrotoxic medication. Continue IV fluids as needed. Encou rage p.o. intake as tolerated. Patient will have bladder scan as needed to rule out urinary retentio n. 3.Severe sepsis due to cholecystitis. Continue to monitor. Patient will have antibiotic. EB/MODL Voice ID: [id number] Report ID: [id number]
[2022-04-01] MEDS: ACETAMINOPHEN 500 MG TAB PO PRN (02:50)
[2022-04-01] MEDS: ETHACRYNIC ACID 25 MG TABLET PO SCH (09:00)
[2022-04-01] MEDS: carvediloL 6.25 MG TAB PO SCH ×2 (09:27→17:04)
[2022-04-01] MEDS: ASPIRIN EC 81 MG TAB PO SCH (09:27)
[2022-04-01] MEDS: predniSONE 20 MG TAB PO SCH ×2 (09:27→20:59)
[2022-04-01] MEDS: FAMOTIDINE 20 MG TAB PO SCH ×2 (09:27→20:58)
[2022-04-01] MEDS: AMLODIPINE 5 MG TAB PO SCH (09:28)
[2022-04-01] MEDS: HYDRALAZINE HCL 25 MG TABLET PO SCH ×3 (09:28→20:58)
[2022-04-01] MEDS: LACTOBACILLUS/ACIDOPHILUS TAB PO SCH (09:28)
[2022-04-01] MEDS: HEPARIN 5000 UNIT/ML 1 ML VIAL SQ SCH ×2 (09:37→20:59)
--- NOTE | 2022-04-01 16:42 | PN ---
Subjective: The patient lying in bed. No new acute event. Chart reviewed. She has been diagnosed with Sweet syndrome and skin biopsy. Objective: Vital Signs: Temperature 98, pulse 60, respirations 16, blood pressure 169/72. Lungs: Clear to auscultation. Heart: S1, S2. Regular. Abdomen: Soft, nontender. Bowel sounds present. Extremity: Scattered area of rash noted. Laboratory Data: Reviewed. Assessment And Plan: A 57-year-old female with sulfa drugs and penicillin allergies. 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 Continue supportive care and monitor for signs of infection. 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 We will continue to monitor for signs of infection. No other recommendati on at this time. NF/MODL Voice ID: [id number] Report ID: [id number]
--- NOTE | 2022-04-01 17:27 | PN ---
Date of Progress Note: 04/01/2022 Subjective: The patient was admitted with acute kidney injury secondary to AIN/sulfa-induced/prerena l, complicated with hyponatremia and hyperkalemia. The patient treated, recovered. Kidney function completely normalized. The patient developed some over volume, given the Lasix, developed worsening allergy, tried on ethacrynic acid. The patient has GI symptoms, so was held. Currently, the patient on OR room air. Physical Examination: Vital Signs: Blood pressure 169/72, pulse of 60, afebrile. Chest: Clear to auscultation. Heart: S1, S2. Regular. Abdomen: Soft, nontender. Extremities: No edema. Neurologic: Alert. No focality. Skin: Macular rash. Laboratory Data: WBC 23.5, H and H 11.5/33.8. Sodium 134, potassium 5, bicarb 25, BUN 34, creatinin e 0.8, GFR of 84. Albumin 2.5, corrected calcium 9.8. Current Medications: The patient on include; 1.Aspirin. 2.Breathing treatment. 3.Amlodipine 10 mg. 4.Carvedilol 6.25. 5.Hydralazine. 6.Ethacrynic. 7.Pepcid. 8.Prednisone. Assessment And Plan: 1.Acute kidney injury, multifactorial secondary to AIN, sulfa-induced/poor perfusion ATN, recovered, currently normal volume. We will continue ethacrynic as tolerated. 2.Hyperkalemia secondary to Bactrim, recovered, resolved. 3.Hyponatremia secondary to cardiorenal, resolved on the ethacrynic acid. 4.Foot infection as by primary. 5.Leukocytosis as by primary. VANE/SEANL Voice ID: [id number] Report ID: [id number]
[2022-04-01] MEDS: MONTELUKAST 10 MG TAB PO SCH (20:58)
--- NOTE | 2022-04-02 00:28 | P.PN ---
Subjective Date of Service: 03/31/22 Patient's rash is significantly improved. [facility] Trying to ambulate with physical therapy. Patient's pathology report pending. Review of Systems 10-point ROS is otherwise unremarkable Physical Examination - Vital Signs Temperature: 98.5 F Blood Pressure: 146/60 Pulse: 58 Respirations: 16 Pulse Ox (%): 96 - Physical Exam General: Alert, In no apparent distress, Oriented x3 HEENT: Atraumatic, PERRLA, EOMI Neck: Supple, JVD not distended Respiratory: Clear to auscultation bilaterally, Normal air movement Cardiovascular: Regular rate/rhythm, Normal S1 S2 Gastrointestinal: Normal bowel sounds, Soft and benign, Non-distended, No tenderness Integumentary: Rash(es) Neurological: Sensation intact, Cranial nerves 3-12 intact, Normal affect Lymphatics: No axilla or inguinal lymphadenopathy - Studies Medications List Reviewed: Yes Assessment & Plan - Problems (Diagnosis) (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 (2) BRITTNEY (acute kidney injury) Current Visit: Yes Status: Acute (3) Elevated troponin Current Visit: Yes Status: Acute (4) Allergy to trimethoprim/sulfamethoxazole Current Visit: Yes Status: Acute - Plan Plan: 1. Continue with oral steroids 2. Heplock IV 3. Autoimmune antibodies pending 4. Repeat renal function testing 5. GI/ DVT prophylaxis Discharge Plan: [facility] Plan to discharge in: Greater than 2 days - Advance Directives Does patient have a Living Will: Yes Does patient have a Durable POA for Healthcare: No - Code Status/Comfort Care Code Status: Full Code Critical Care: No Time Spent Managing PTS Care (In Minutes): 35
--- NOTE | 2022-04-02 00:36 | P.PN ---
Date of Service: 04/01/22 Subjective Pt continues to improve Review of Systems 10-point ROS is otherwise unremarkable Physical Examination - Vital Signs Reviewed - Physical Exam General: Alert, In no apparent distress, Oriented x3 Respiratory: Clear to auscultation bilaterally, Normal air movement Cardiovascular: Regular rate/rhythm, Normal S1 S2 Gastrointestinal: Normal bowel sounds, Soft and benign, Non-distended, No tenderness Integumentary: rash improved Neurological: no focal deficits Assessment & Plan - Problems (Diagnosis) (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 (2) BRITTNEY (acute kidney injury) Current Visit: Yes Status: Acute (3) Elevated troponin Current Visit: Yes Status: Acute (4) Allergy to trimethoprim/sulfamethoxazole Current Visit: Yes Status: Acute - Plan Continue with POC as mentioned below: 1. Continue with oral steroids 2. Heplock IV 3. Continue with PT 4. Renal function is stable 5. GI/ DVT prophylaxis Discharge Plan: Retirement Plan to discharge in: Greater than 2 days - Advance Directives Does patient have a Living Will: Yes Does patient have a Durable POA for Healthcare: No - Code Status/Comfort Care Code Status: Full Code Critical Care: No Time Spent Managing PTS Care (In Minutes): 35
[2022-04-02 06:08] LABS: Hematocrit 38.4 % (36.0-45.0); Lymphocytes % 6.2 % (15.3-44.8); MCV 90.5 fL (80-100); MPV 7.9 fL (7.6-11.3); RBC Red Blood Cell Count 4.24 M/uL (3.86-4.86)
[2022-04-02 06:19] LABS: Potassium 5.2 mmol/L (3.5-5.1)
[2022-04-02 07:54] LABS: Blood Morphology Comment NOT SEEN (NOT SEEN); Platelet Estimate INCR; Platelets, Giant FEW
[2022-04-02] MEDS: ETHACRYNIC ACID 25 MG TABLET PO SCH (09:00)
[2022-04-02] MEDS: FAMOTIDINE 20 MG TAB PO SCH ×2 (09:22→21:13)
[2022-04-02] MEDS: AMLODIPINE 5 MG TAB PO SCH (09:22)
[2022-04-02] MEDS: carvediloL 6.25 MG TAB PO SCH ×2 (09:23→17:41)
[2022-04-02] MEDS: ASPIRIN EC 81 MG TAB PO SCH (09:23)
[2022-04-02] MEDS: predniSONE 20 MG TAB PO SCH ×2 (09:23→21:14)
[2022-04-02] MEDS: LACTOBACILLUS/ACIDOPHILUS TAB PO SCH (09:23)
[2022-04-02] MEDS: HEPARIN 5000 UNIT/ML 1 ML VIAL SQ SCH ×2 (09:23→21:13)
[2022-04-02] MEDS: HYDRALAZINE HCL 25 MG TABLET PO SCH ×3 (09:23→21:14)
--- NOTE | 2022-04-02 13:34 | PN ---
Date of Progress Note: 04/02/2022 Subjective: The patient was admitted with acute kidney injury secondary to AIN. The patient was kanika ated with Decadron. The patient has been recovering. Her skin rash has been improving. Blood press ure slightly better, but still elevated. The patient was given Lasix, developed allergic reaction ag ain to sulfa, and the patient could not tolerate ethacrynic acid. Physical Examination: Vital Signs: Blood pressure 180/61, pulse of 65, afebrile. Chest: Clear to auscultation. Heart: S1, S2. Regular. Abdomen: Morbidly obese. Could not appreciate any organomegaly. Extremity: Trace edema. Neurologic: Alert. No focality. Laboratory Data: WBC 16.8, H and H 12.5/38.4. Sodium 134, potassium 5.2, bicarb 25, BUN 33, creatin ine 0.8, calcium 8.9. Current Medications: The patient on include; 1.Tylenol. 2.Amlodipine 10 mg. 3.Carvedilol 6.25 b.i.d. 4.Ethacrynic acid. 5.Hydralazine 25 t.i.d. 6.Zofran. 7.Prednisone 20 b.i.d. Assessment And Plan: 1.Acute kidney injury secondary to AIN, toxic ATN, recovered, resolved. Normal volume. We will con tinue to monitor. 2.Hypertension. We will increase carvedilol to 12.5, increase hydralazine to 50 t.i.d., and we will monitor. 3.Foot infection as by primary. 4.Hyperkalemia, marginal. We will monitor. 5.Hyponatremia dilutional secondary to cardiorenal. We will continue p.r.n. ethacrynic. MA/MODL Voice ID: [id number] Report ID: [id number]
--- NOTE | 2022-04-02 14:09 | P.PN ---
Date of Service: 04/02/22 Subjective Patient continues to improve. Clinical symptoms are much better. Awaiting acceptance to rehab. 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 Continue with oral steroids 2. Heplock IV 3. PT 4. Repeat renal function testing 5. GI/ DVT prophylaxis Discharge Plan: [facility] Plan to discharge in: Greater than 2 days - Advance Directives Does patient have a Living Will: Yes Does patient have a Durable POA for Healthcare: No - Code Status/Comfort Care Code Status: Full Code Critical Care: No Time Spent Managing PTS Care (In Minutes): 35
[2022-04-02] MEDS: ACETAMINOPHEN 500 MG TAB PO PRN (15:27)
[2022-04-02] MEDS: MONTELUKAST 10 MG TAB PO SCH (21:13)
[2022-04-03 05:50] LABS: Hematocrit 38.4 % (36.0-45.0); Lymphocytes % 6.7 % (15.3-44.8); MCV 90.4 fL (80-100); MPV 8.1 fL (7.6-11.3); RBC Red Blood Cell Count 4.25 M/uL (3.86-4.86)
[2022-04-03 05:57] LABS: Magnesium 2.3 mg/dL (1.8-2.4)
[2022-04-03] MEDS: carvediloL 6.25 MG TAB PO SCH ×2 (08:27→17:06)
[2022-04-03] MEDS: AMLODIPINE 5 MG TAB PO SCH (08:27)
[2022-04-03] MEDS: FAMOTIDINE 20 MG TAB PO SCH ×2 (08:27→21:49)
[2022-04-03] MEDS: LACTOBACILLUS/ACIDOPHILUS TAB PO SCH (08:28)
[2022-04-03] MEDS: HYDRALAZINE HCL 25 MG TABLET PO SCH ×3 (08:28→21:49)
[2022-04-03] MEDS: HEPARIN 5000 UNIT/ML 1 ML VIAL SQ SCH ×2 (08:28→21:49)
[2022-04-03] MEDS: predniSONE 20 MG TAB PO SCH ×2 (08:28→21:49)
[2022-04-03] MEDS: ASPIRIN EC 81 MG TAB PO SCH (08:28)
[2022-04-03 17:19] VITALS: O2SAT 98
--- NOTE | 2022-04-03 17:32 | PN ---
Date of Progress Note: 04/03/2022 Subjective: The patient was admitted with acute kidney injury secondary to AIN secondary to sulfa, c omplicated with hyperkalemia and hyponatremia. The patient had foot infection. The patient was isrrael ashley. Kidney function has been normalized. Fluid status has been stabilized. Physical Examination: Vital Signs: Blood pressure 137/65, pulse of 60, afebrile. Chest: Clear to auscultation. Heart: S1, S2 regular. Abdomen: Soft, nontender. Extremity: Trace edema. Neurologic: Alert and oriented x3. No focality. Skin: Macular rash. Laboratory Data: WBC 14.9, H and H of 12.8/38.8. Sodium 134, potassium 5, bicarb 25, BUN 39, creati nine 0.8. Calcium 9.8, magnesium 2.3. Current Medications: The patient on include; 1.Aspirin. 2.Diphenhydramine. 3.Carvedilol 6.25 b.i.d. 4.Hydralazine 25 t.i.d. 5.Zofran. Assessment And Plan: 1.Acute kidney injury secondary to AIN and sulfa, recovered, resolved. 2.Over volume: Could not tolerate diuresis with sulfa found, placed on ethacrynic. We will follow up. 3.Hyperkalemia, resolved. 4.Hypertension, controlled, optimal. Continue current medication. 5.Hyponatremia secondary to AIN, resolved. 6.Foot infection. We will follow up with the primary. AIDEN Voice ID: [id number] Report ID: [id number]
--- NOTE | 2022-04-03 18:29 | PN ---
Subjective: The patient is lying in bed. No new acute event. Chart reviewed. Feeling much better today. Objective: Vital Signs: Temperature 97, pulse 60, respirations 18, blood pressure 137/65. Lungs: Basal crackles. Heart: S1, S2. Regular. Abdomen: Soft, nontender. Bowel sounds present. Extremity: Trace edema. Laboratory Data: Shows WBC down to 14.9 from 23,000, hemoglobin 12.8, platelets are 379. Chemistry shows sodium 134, potassium 5, chloride 103, bicarb 25, BUN 39, creatinine 0.8, glucose 194. Assessment And Plan: Leukocytosis, leukemoid reaction, most likely secondary to steroid therapy. Th e patient's rash has been improving steadily since the patient is off sulfa drugs. Sweet syndrome, c ontinue supportive care. Continue symptomatic management. We will follow the patient closely. NF/MODL Voice ID: [id number] Report ID: [id number]
[2022-04-03] MEDS: MONTELUKAST 10 MG TAB PO SCH (21:49)
[2022-04-03] MEDS: DIPHENHYDRAMINE 50 MG/ML VIAL IV PRN (21:50)
--- NOTE | 2022-04-04 02:41 | P.PN ---
Date of Service: 04/03/22 Subjective Pt s clinically doing much better. She actually got out of bed and stood 10 times today. Her rash is improved significantly as well. Continue with tapering dose of steroid and awaiting for acceptance to inpatient rehab. 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 Continue with tapering dose of oral steroids 2. Heplock IV 3. PT and continue with OOB and ambulate 4. Continue with monitoring renal function 5. GI/ DVT prophylaxis Discharge Plan: [facility]In[facility] rehab Plan to discharge in: Greater than 2 days - Advance Directives Does patient have a Living Will: Yes Does patient have a Durable POA for Healthcare: No - Code Status/Comfort Care Code Status: Full Code Critical Care: No Time Spent Managing PTS Care (In Minutes): 35
[2022-04-04 06:29] LABS: Hematocrit 39.4 % (36.0-45.0); Lymphocytes % 8.9 % (15.3-44.8); MPV 7.8 fL (7.6-11.3); RBC Red Blood Cell Count 4.42 M/uL (3.86-4.86)
[2022-04-04 06:47] LABS: Potassium 5.1 mmol/L (3.5-5.1)
[2022-04-04] MEDS: carvediloL 6.25 MG TAB PO SCH ×2 (08:41→17:38)
[2022-04-04] MEDS: HYDRALAZINE HCL 25 MG TABLET PO SCH ×3 (08:41→20:57)
[2022-04-04] MEDS: predniSONE 20 MG TAB PO SCH ×2 (08:41→20:57)
[2022-04-04] MEDS: AMLODIPINE 5 MG TAB PO SCH (08:41)
[2022-04-04] MEDS: FAMOTIDINE 20 MG TAB PO SCH ×2 (08:41→20:57)
[2022-04-04] MEDS: LACTOBACILLUS/ACIDOPHILUS TAB PO SCH (08:41)
[2022-04-04] MEDS: HEPARIN 5000 UNIT/ML 1 ML VIAL SQ SCH (08:42)
[2022-04-04] MEDS: ASPIRIN EC 81 MG TAB PO SCH (08:42)
--- NOTE | 2022-04-04 10:17 | P.PN ---
Subjective Date of Service: 04/04/22 Chief Complaint: Generalized rash weakness Subjective: Improving (Patient is improving doing well has been in hospital for 13 days ending transfer to rehab) Review of Systems 10-point ROS is otherwise unremarkable General: Weakness Physical Examination - Vital Signs Temperature: 97.8 F Blood Pressure: 131/62 Pulse: 64 Respirations: 16 Pulse Ox (%): 97 - Physical Exam General: Alert, Oriented x3 HEENT: Atraumatic Neck: Supple Cardiovascular: No edema, Normal S1 S2 Integumentary: Rash(es) (She has generalized rash) - Studies Medications List Reviewed: Yes Assessment And Plan - Current Problems (Diagnosis) (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 Plan: Patient has generalized rash slow tapering of steroids no evidence of active sepsis all cultures are negative diagnostic data is unremarkable and is feeling well apart from weakness vital signs oxygenation satisfactory renal function has improved back to normal white count is mildly elevated she is on prednisone 20 mg twice a day foot MRI negative ultrasound of the kidneys no obstruction is a biopsy done recently patient was treated with Bactrim may have contributed to the Sweet syndrome she was initially admitted with lower extremity cellulitis also history of Guillain-Alvares syndrome low-dose Xarelto for DVT prophylaxis
--- NOTE | 2022-04-04 11:52 | P.PN ---
Subjective Date of Service: 04/04/22 Chief Complaint: Generalized rash weakness Subjective: No new changes Physical Examination - Vital Signs Temperature: 97.8 F Blood Pressure: 131/62 Pulse: 64 Respirations: 16 Pulse Ox (%): 97 - Physical Exam General: In no apparent distress HEENT: Atraumatic, Normocephalic Neck: Supple Respiratory: Other (symmetric chest expansion) Cardiovascular: No rubs, No murmurs Gastrointestinal: Soft and benign, No guarding Musculoskeletal: No clubbing Integumentary: No warmth Neurological: Normal speech, Normal tone Urinary: Other (no bladder distention) External genitalia: Deferred Rectal: Deferred - Studies Medications List Reviewed: Yes Assessment And Plan - Plan 1. Acute kidney injury secondary to AIN and sulfa, recovered, resolved. liberal by mouth fluid intake. 2. Over volume: Could not tolerate diuresis with sulfa found, placed on ethacrynic. We will follow up. 3. Hyperkalemia, resolved. 4. Hypertension, controlled, optimal. Continue current medication. 5. Hyponatremia secondary to AIN, resolved. 6. Severe sepsis 2/2 DM foot wound. We will follow up with the primary. 7. Hx of GBS. PT/OT. 8. Dispo. Sign off today.
[2022-04-04] MEDS: RIVAROXABAN 10 MG TABLET PO SCH (17:38)
--- NOTE | 2022-04-04 20:47 | PN ---
Date of Progress Note: 04/04/2022 Subjective: Seen at bedside, doing clinically well. Rash has resolved and no chest pain. Review of Systems: No chest pain, shortness of breath, orthopnea, cough. No nausea, vomiting, diarrhea. No abdominal p ain. No dysuria, polyuria, or urinary urgency. No skin rash. All other systems reviewed and they a re negative. Physical Examination: Vital Signs: Reviewed. Head and Neck: Pupils are equal, reactive to light. Intact eye movements. No JVD. No cervical lym phadenopathy. NECK: Supple. Thyroid is not enlarged. LUNGS: Clear to auscultation bilaterally. No rhonchi, wheezing, or crackle. No accessory muscle us e. Heart: Regular rate and rhythm. No extra sounds. Abdomen: Soft, nontender. Bowel sounds positive. No organomegaly. No masses or hernia. No rigidi ty or rebound. Extremities: No clubbing or cyanosis. Intact pulses. Skin: The rash has almost resolved. Neurologic: Alert, awake, oriented x3. No acute focal deficits appreciated. Investigations: Labs were reviewed. Assessment And Recommendation: 1.Elevated troponin during the recent hospitalization. The patient has no further chest pain. No p ramin for outpatient stress test and an echocardiogram. 2.Skin rash, resolving. Continue current management. SR/MODL Voice ID: [id number] Report ID: [id number]
[2022-04-04] MEDS: DIPHENHYDRAMINE 25 MG TAB/CAP PO PRN (20:57)
[2022-04-04] MEDS: MONTELUKAST 10 MG TAB PO SCH (20:57)
[2022-04-05] MEDS: ACETAMINOPHEN 500 MG TAB PO PRN (06:42)
[2022-04-05] MEDS: DIPHENHYDRAMINE 25 MG TAB/CAP PO PRN (06:42)
[2022-04-05] MEDS: predniSONE 20 MG TAB PO SCH (09:00)
--- NOTE | 2022-04-05 09:12 | P.PN ---
Subjective Date of Service: 04/05/22 Chief Complaint: Generalized rash weakness Subjective: Improving (Patient is doing better rash is improved less some lower extremity weakness) Review of Systems Unremarkable Physical Examination - Vital Signs Temperature: 97.8 F Blood Pressure: 131/62 Pulse: 64 Respirations: 16 Pulse Ox (%): 97 - Physical Exam General: Alert, In no apparent distress, Oriented x3 Respiratory: Clear to auscultation bilaterally Cardiovascular: No edema Gastrointestinal: Normal bowel sounds, Soft and benign Integumentary: Other (Genital rash has improved significantly she says some itching on her palms) - Studies Medications List Reviewed: Yes Assessment And Plan - Current Problems (Diagnosis) (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
[2022-04-05] MEDS: carvediloL 6.25 MG TAB PO SCH ×2 (09:52→16:24)
[2022-04-05] MEDS: HYDRALAZINE HCL 25 MG TABLET PO SCH ×3 (09:53→20:42)
[2022-04-05] MEDS: FAMOTIDINE 20 MG TAB PO SCH ×2 (09:53→20:42)
[2022-04-05] MEDS: LACTOBACILLUS/ACIDOPHILUS TAB PO SCH (09:53)
[2022-04-05] MEDS: AMLODIPINE 5 MG TAB PO SCH (09:53)
[2022-04-05] MEDS: ASPIRIN EC 81 MG TAB PO SCH (09:53)
--- NOTE | 2022-04-05 13:42 | PN ---
Date of Progress Note: 04/05/2022 Subjective: The patient was admitted with acute kidney injury secondary to AIN secondary to Bactrim. The patient recovered. Physical Examination: Vital Signs: Blood pressure 131/62, pulse of 64, afebrile. Chest: Decreased entry bilateral base. Heart: S1, S2. Regular. Abdomen: Morbidly obese. Could not appreciate any organomegaly. Extremities: Plus edema. Neurologic: Alert. No focality. Laboratory Data: WBC 11.2, Sodium 135, potassium 5.1, bicarb 23, BUN 44, creatinine 0.9, calcium 9.3. Current Medications: The patient on include diphenhydramine, aspirin, Xarelto, amlodipine 10 mg, carvedilol 6.25, hydralazine 25 t.i.d., Pepcid, Zofran, prednisone down to 10 b.i.d., flecainide, Singulair. Assessment And Plan: 1. Acute kidney injury, multifactorial, secondary to Bactrim/AIN, recovered, resolved. 2. Hypertension, controlled, optimal. 3. Hyperkalemia, resolved. 4. Hyponatremia, dilutional. Has been resolved. 5. Deconditioning. Continue PT/OT. Time spent examining the patient [id number], reviewing the data lab and radiology, placing orders, discussing with the patient, explaining risks, benefits, alternatives, discussing with the staff member including nursing discussing with the hospitalist more than 35 minutes. AIDEN Voice ID: [id number] Report ID: [id number] JADEN
[2022-04-05] MEDS: RIVAROXABAN 10 MG TABLET PO SCH (16:24)
[2022-04-05] MEDS: MONTELUKAST 10 MG TAB PO SCH (20:42)
[2022-04-05] MEDS: predniSONE 10 MG TAB PO SCH (20:42)
[2022-04-06] MEDS: ASPIRIN EC 81 MG TAB PO SCH (08:10)
[2022-04-06] MEDS: LACTOBACILLUS/ACIDOPHILUS TAB PO SCH (08:10)
[2022-04-06] MEDS: carvediloL 6.25 MG TAB PO SCH (08:10)
[2022-04-06] MEDS: FAMOTIDINE 20 MG TAB PO SCH ×2 (08:11→21:36)
[2022-04-06] MEDS: predniSONE 10 MG TAB PO SCH ×2 (08:11→21:36)
[2022-04-06] MEDS: AMLODIPINE 5 MG TAB PO SCH (08:11)
[2022-04-06] MEDS: HYDRALAZINE HCL 25 MG TABLET PO SCH (08:11)
--- NOTE | 2022-04-06 09:17 | P.PN ---
Subjective Date of Service: 04/06/22 Chief Complaint: Sweet syndrome hypertension Subjective: Improving (Improving no complaints still has weakness) Review of Systems Unremarkable Physical Examination - Vital Signs Temperature: 96.5 F Blood Pressure: 141/75 Pulse: 75 Respirations: 18 Pulse Ox (%): 98 - Physical Exam General: Alert, In no apparent distress, Oriented x3 Respiratory: Clear to auscultation bilaterally Cardiovascular: No edema Integumentary: Other (Rash has improved significantly minimal changes now noted) - Studies Medications List Reviewed: Yes Assessment And Plan - Current Problems (Diagnosis) (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
[2022-04-06] MEDS ORDERED: carvediloL 12.5 MG TAB PO SCH (09:30)
[2022-04-06 09:55] LABS: Potassium 4.6 mmol/L (3.5-5.1)
[2022-04-06 09:59] LABS: Hematocrit 37.2 % (36.0-45.0); MCV 89.6 fL (80-100); MPV 7.7 fL (7.6-11.3); RBC Red Blood Cell Count 4.15 M/uL (3.86-4.86)
[2022-04-06] MEDS: VALSARTAN 160 MG TAB PO SCH ×2 (10:02→21:36)
[2022-04-06] MEDS ORDERED: carvediloL 6.25 MG TAB PO ONE (10:30)
--- NOTE | 2022-04-06 14:05 | PN ---
Date of Progress Note: 04/06/2022 Subjective: Seen by bedside. Doing well. No complaints. She is still weak, however, not moving ar ound to assess her functional capacity. Review of Systems: No chest pain, shortness of breath, orthopnea, or cough. No nausea, vomiting, diarrhea. All other s ystems reviewed and they were negative. Physical Examination: Vital Signs: Reviewed. Head and Neck: Pupils are equal, reactive to light. Intact eye movements. No JVD. No cervical lym phadenopathy. Neck is supple. Thyroid is not enlarged. Lungs: Clear to auscultation bilaterally. No rhonchi, wheezing, or crackles. No accessory muscle u se. Heart: Regular rate and rhythm. No extra sounds. Abdomen: Soft, nontender. Bowel sounds positive. No organomegaly. No masses or hernia. No rigidi ty or rebound. Extremities: No edema, clubbing or cyanosis. Intact pulses. Skin: No rash. Neurologic: Alert, awake, oriented x3. No acute focal deficits appreciated. Investigations: Labs were reviewed. Assessment And Recommendations: 1.Elevated troponin at the initial presentation and the patient is asymptomatic. Outpatient workup will be planned. 2.Hypertension. Blood pressure is controlled. SR/MODL Voice ID: [id number] Report ID: [id number]
--- NOTE | 2022-04-06 14:50 | PN ---
Date of Progress Note: 04/06/2022 Subjective: The patient was admitted with acute kidney injury secondary to AIN, Bactrim induced. Th e patient had over volume. Has allergic reaction to sulfa including diuresis. The patient could not tolerate either ethacrynic acid. The patient's kidney function anyhow recovered. Physical Examination: Vital Signs: Blood pressure 127/58, pulse of 60, afebrile. The patient had good urine output of 310 0. Chest: Decreased entry bilateral base. Heart: S1, S2. Regular. Abdomen: Morbidly obese. Could not appreciate any organomegaly. Extremities: Plus edema. Neurologic: Alert. No focality. Laboratory Data: WBC 11.1, H and H 12.5/37.2. Sodium 137, potassium 4.6, bicarb 23, BUN 36, creatin ine 0.8, calcium 8.5. Current Medications: The patient on include; 1.Aspirin. 2.Diphenhydramine. 3.Amlodipine 10 mg. 4.Carvedilol 12.5. 5.Diovan. 6.Pepcid. 7.Prednisone. 8.Singulair. Assessment And Plan: 1.Acute kidney injury, multifactorial, secondary to sulfa/AIN, recovered, resolved. 2.Hypertension, currently controlled, optimal. Continue current medication. 3.Edema. Unfortunately, the patient has severe allergy to sulfa, could not tolerate ethacrynic acid . I am going to continue to monitor. 4.Deconditioning. Continue PT, OT. 5.Hyperkalemia, resolved. MA/MODL Voice ID: [id number] Report ID: [id number]
[2022-04-06] MEDS: RIVAROXABAN 10 MG TABLET PO SCH (17:03)
[2022-04-06] MEDS: carvediloL 12.5 MG TAB PO SCH (18:12)
[2022-04-06] MEDS: MONTELUKAST 10 MG TAB PO SCH (21:36)
[2022-04-07] MEDS: carvediloL 12.5 MG TAB PO SCH (05:27)
--- NOTE | 2022-04-07 08:49 | P.DS ---
Admission Date: 03/22/22 Discharge Date: 04/07/22 Disposition: TRANSFER TO INPATIENT REHAB Discharge Condition: GOOD Reason for Admission: Sweet syndrome hypertension Consultations: 1. Nephrology 2. Cardiology 3. Infectious Diseases 4. General Surgery Procedures: 03/26/2022 - Skin Punch Biopsy of Left Thigh Hospital Course: DIAGNOSES: # Acute Febrile Neutrophilic Dermatosis (Sweet's Syndrome) # Severe Sepsis likely secondary to Left Lower Extremity Cellulitis # Acute Kidney Injury suspect due to Sepsis, resolved # Suspect Type II NSTEMI (Demand Ischemia) # Hypertension # Hyperlipidemia # Deconditioning # History of [place] Syndrome HOSPITAL COURSE: Ms. Natalie Lara is a pleasant 57 year old female with a past medical history significant for hypertension, hyperlipidemia, and [place] Syndrome who was admitted to the [facility] on 03/22/2022 for a morbilliform rash. She was admitted to the Medicine service for further evaluation. In addition to the morbilliform rash, she was found to be in severe sepsis secondary to a left lower extremity cellulitis. She was also found to have an acute kidney injury secondary to sepsis. She was treated with IV antibiotics per sepsis protocol, with improvement of these symptoms. An MRI of her foot was performed and revealed, "no evidence of osteomyelitis." In regards to her morbilliform rash, this was initially thought to represent a Bactrim-induced rash vs vasculitis. General Surgery was consulted and she underwent a skin punch biopsy. Her biopsy returned positive for Sweet's Syndrome. She was treated with steroids and discharged with enough prednisone to complete a 4 week course (end date: 04/25/2022). She was also prescribed atovaquone for PJP prophylaxis while on prednisone as she is allergic to Bactrim and Dapsone (sulfa). Additionally, she developed an elevated troponin trend. Cardiology was consulted and her troponin trend was attributed to a type II NSTEMI (demand ischemia). Over her hospital course, her rash continued to improve with the steroid therapy. However, she had significant deconditioning. Physical therapy was consulted and recommended placement into inpatient rehab. With the assistance of case management, she was accepted to [facility] Inpatient Rehab. In regard's to her Sweet's Syndrome, she was advised that this condition is highly associated with malignancy. I have advised her to schedule a CT chest, mammogram, colonoscopy, Pap smear, and all age-related cancer screening with her PCP once discharged from inpatient rehab. She verbalized understanding and agreed to make these appointments. On 04/07/2022, she was seen on morning rounds and deemed medically stable for discharge. She was discharged with instructions to schedule follow-up appointments with her PCP 3-5 days following discharge from inpatient rehab. She was given the opportunity to ask questions and reported no further questions. Furthermore, all questions were answered to the best of my ability. Today, I personally spent 20 minutes on her case, of which greater than 50% of the time was spent in patient education, counseling, and coordination of care as described above. - Physical Exam General: Alert, In no apparent distress, Oriented x3 HEENT: Atraumatic, PERRLA, Mucous membr. moist/pink, EOMI, Sclerae nonicteric Neck: Supple, JVD not distended Respiratory: Clear to auscultation bilaterally, Normal air movement Cardiovascular: No edema, Regular rate/rhythm, Normal S1 S2, No gallops, No rubs, No murmurs Gastrointestinal: Normal bowel sounds, Soft and benign, Non-distended, No tenderness, No rebound, No guarding Musculoskeletal: No clubbing Integumentary: Rash(es) (minimal to no erythema - rash has significantly improved and nearly resolved) Neurological: Normal speech, Cranial nerves 3-12 intact, Abnormal speech Vital Signs/Physical Exam: Temp Pulse Resp BP Pulse Ox 97.6 F 65 18 125/50 L 95 04/07/22 08:00 04/07/22 08:00 04/07/22 08:00 04/07/22 08:00 04/07/22 08:00 Laboratory Data at Discharge: WBC 11.10 K/uL (4.3-10.9) H 04/06/22 09:31 Hgb 12.5 g/dL (12.0-15.0) 04/06/22 09:31 Hct 37.2 % (36.0-45.0) 04/06/22 09:31 Plt Count 359 K/uL (152-406) 04/06/22 09:31 Sodium 137 mmol/L (136-145) 04/06/22 09:31 Potassium 4.6 mmol/L (3.5-5.1) 04/06/22 09:31 BUN 36 mg/dL (7-18) H 04/06/22 09:31 Creatinine 0.86 mg/dL (0.55-1.3) 04/06/22 09:31 Glucose 132 mg/dL (74-106) H 04/06/22 09:31 Magnesium 2.3 mg/dL (1.8-2.4) 04/03/22 05:19 Total Bilirubin 0.4 mg/dL (0.2-1.0) 03/31/22 05:27 AST 30 U/L (15-37) 03/31/22 05:27 ALT 58 U/L (12-78) 03/31/22 05:27 Alkaline Phosphatase 78 U/L (45-117) 03/31/22 05:27 Triglycerides 162 mg/dL (<150) H 03/22/22 03:12 Cholesterol 149 mg/dL (<200) 03/22/22 03:12 HDL Cholesterol 31 mg/dL (40-60) L 03/22/22 03:12 Cholesterol/HDL Ratio 4.81 03/22/22 03:12 Home Medications: Famotidine 20 mg PO BID 03/22/22 Albuterol Inhaler [Ventolin Inhaler*] 1 puff IH Q6H PRN 04/07/22 Amlodipine [Norvasc*] 10 mg PO DAILY tab 04/07/22 Atovaquone 10 ml PO LUNCH 19 Days 04/07/22 Hydrocortisone Oint [Cortizone 1% Ointment*] 1 appl TOP TID PRN tube 04/07/22 Montelukast [Singulair*] 10 mg PO BEDTIME tab 04/07/22 Rivaroxaban [Xarelto*] 10 mg PO DAILY AT SUPPER 04/07/22 Valsartan [Diovan*] 160 mg PO BID tab 04/07/22 carvediloL [Coreg*] 12.5 mg PO BID 6AM 6PM tab 04/07/22 predniSONE [Deltasone*] 10 mg PO BID 19 Days tab 04/07/22 New Medications: Atovaquone 10 ml PO LUNCH 19 Days predniSONE [Deltasone*] 10 mg PO BID 19 Days tab Physician Discharge Instructions: Transfer to inpatient rehab Diet: AHA Activity: Fall precautions Followup: Unknown,U [Primary Care Provider] - Time spent managing pt's care (in minutes): 20
[2022-04-07] MEDS: ASPIRIN EC 81 MG TAB PO SCH (08:53)
[2022-04-07] MEDS: LACTOBACILLUS/ACIDOPHILUS TAB PO SCH (08:53)
[2022-04-07] MEDS: predniSONE 10 MG TAB PO SCH (08:54)
[2022-04-07] MEDS: FAMOTIDINE 20 MG TAB PO SCH (08:54)
[2022-04-07] MEDS: VALSARTAN 160 MG TAB PO SCH (08:54)
[2022-04-07] MEDS: AMLODIPINE 5 MG TAB PO SCH (08:55)
--- NOTE | 2022-04-07 12:53 | PN ---
Subjective: The patient lying in bed. No new acute event. Chart reviewed. Denies any headache, na usea, vomiting, chest pain, abdominal pain, constipation, or diarrhea. Objective: Vital Signs: Temperature 97, pulse 65, respirations 18, blood pressure 125/50. General: Examination unchanged. Skin: No more rash noted on the body. Laboratory Data: Shows WBC 11.1, hemoglobin 12.5, platelets are 359. Chemistry; sodium 137, potassi um 4.6, chloride 109, bicarb 23, BUN 36, creatinine 0.8, glucose 132. Assessment And Plan: The patient is being discharged to rehab. Drug rash secondary to sulfa drugs. Leukemoid reaction is resolving. The patient's white count is now 11,000. Continue supportive care . Sweet syndrome, continue supportive care and symptomatic care. We will follow the patient as need ed. NF/MODL Voice ID: [id number] Report ID: [id number]
[2022-04-07 13:02] VITALS: BP 154/53; TEMP 97
--- NOTE | 2022-04-07 20:32 | PN ---
Date of Progress Note: 04/07/2022 Chief Complaint: Acute kidney injury. History Of Present Illness: The patient was admitted to the hospital and she was found to have acute kidney injury, which was due to Bactrim effects. The patient also has fluid overload and she was ta earnest diuretic. At this point, she is off diuretic. Renal function has stabilized and acute kidney i njury resulted. Review of Systems: Denies fever or chills. Physical Examination: Lungs: Clear to auscultation bilaterally. Heart: S1, S2. Abdomen: Soft, benign. Extremities: No edema. Impression/plan: 1.Acute kidney injury, multifactorial secondary to bacteremia. Renal function has improved. Contin ue adequate hydration, avoid nephrotoxic medication. Patient cannot take nonsteroidal anti-inflammat ory medication. 2.Hypertension. Blood pressure is controlled and optimal. Continue low-sodium diet and medication for blood pressure control as needed. 3.Edema. Patient will continue low-sodium diet. Avoid excessive diuretics. Patient is allergic to sulfa medication and cannot take diuretic and she could not tolerate Ethacrynic acid. 4.Hyperkalemia, resolved. Continue to monitor renal function. EB/MODL Voice ID: [id number] Report ID: [id number]
== END 2022-04-07 13:00 | DRG 871 ==
LOC: ER 20:25 → 2ND 03-22 00:23 → 4TH 03-31 09:48
PROVIDERS: ADMIT Hospitalist; ATTEND Internal Medicine
PROC: 0HBJXZX Excision of Left Upper Leg Skin, External Approach, Diagnostic (ICD-10-PCS; principal; 2022-03-26)
DX: A41.9 Sepsis, unspecified organism (principal); N17.0 Acute kidney failure with tubular necrosis; I21.A1 Myocardial infarction type 2; L03.116 Cellulitis of left lower limb; E87.1 Hypo-osmolality and hyponatremia; E87.2 Acidosis; M31.0 Hypersensitivity angiitis; Z68.42 Body mass index [BMI] 45.0-49.9, adult; E83.42 Hypomagnesemia; E78.5 Hyperlipidemia, unspecified; D72.825 Bandemia; R65.20 Severe sepsis without septic shock; I10 Essential (primary) hypertension; E87.5 Hyperkalemia; L23.89 Allergic contact dermatitis due to other agents; E66.01 Morbid (severe) obesity due to excess calories; D63.8 Anemia in other chronic diseases classified elsewhere; E11.628 Type 2 diabetes mellitus with other skin complications; E86.0 Dehydration; L98.2 Febrile neutrophilic dermatosis [Sweet]; B05.9 Measles without complication; T36.8X5A Adverse effect of other systemic antibiotics, initial encounter; R33.9 Retention of urine, unspecified; R77.8 Other specified abnormalities of plasma proteins; Z88.0 Allergy status to penicillin; Z88.1 Allergy status to other antibiotic agents; Z79.52 Long term (current) use of systemic steroids; Z88.5 Allergy status to narcotic agent; Z79.899 Other long term (current) drug therapy; Z20.822 Contact with and (suspected) exposure to COVID-19; W18.30XA Fall on same level, unspecified, initial encounter
CPT/HCPCS: 36415; 71045; 76770; 80048; 80053; 80061; 80074; 80202; 81001; 81003; 81015; 82306; 82550; 82570; 82805; 83605; 83735; 83880; 83935; 83970; 84132; 84145; 84156; 84300; 84484; 85025; 85027; 85652; 86038; 86060; 86140; 86160; 86162; 86200; 86225; 86430; 87040; 87070; 87086; 87088; 87176; 87205; 87811; 88305; 93005; 93307; 97110; 97112; 97161; 97165; 97530; 99251; 99285; J0360; J0692; J1100; J1200; J1644; J1940; J2001; J2270; J2405; J3370; J3475; J7030; J7040; J7050; J7512; U0003

== ENCOUNTER 2022-04-04 14:45 | Inpatient (IN) | payer BC ==
--- NOTE | 2022-04-07 10:41 | R.PREADM ---
PRE-ADMISSION SCREENING FORM SCREENING DATE AND TIME 04/07/2022 09:11 (CDT) ANTICIPATED REHAB ADMISSION DATE 04/09/2022 REFERRING FACILITY [facility] REFERRAL DATE AND TIME 04/07/2022 09:11 (CDT) ACUTE ADMIT DATE 03/22/2022 Previous Rehabilitation(s): No. REFERRING PHYSICIAN Dash Kinney REHAB FACILITY [facility] CLINICAL LIAISON Osiris Grace PHYSICIAN REVIEWER Dr. Jose Quinones M.D. [id number] [id number] NAME SABIHA BERRIOS [address]ESS [address] [place] [place] [address] DATE OF 1965 AGE 57 SSN# [id number] GENDER female MARITAL STATUS unknown race ADMIT FROM 02 - [facility] PRE-HOSPITAL LIVING SETTING 01 - Home (private home/apt. board/care, assisted living, custodial, transitional living) HOME TYPE AND DETAILS Type of home: single family house # of levels in the residence: 1 # of steps to enter the residence: 0 # of steps within the residence: 0 PRE-HOSPITAL LIVING WITH Family/Relatives FAMILY SUPPORT Yes PHONE PRIMARY FAMILY CONTACT ON ADM.? no IS PRIMARY FAMILY CONTACT AUTH. REP.? no PHONE 1ST CONTACT ON ADM. no IS 1ST CONTACT AUTH. REP.? no PHONE 2ND CONTACT ON ADM.? 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 No ANOTHER DEMOCRAT RESPONSIBLE? No PRIMARY REHAB/ACUTE DIAGNOSIS: Deconditioning ONSET DATE 03/22/2022 REHAB IMPAIRMENT CATEGORY (AUGUST): 20 Miscellaneous (Misc) does NOT meet 60% rule PRIMARY DIAGNOSIS-RELATED SURGERIES: None COMORBID REHAB/ACUTE DIAGNOSES: - Non-Tiered Essential (primary) hypertension (I10) Edema, unspecified (R60.9) Febrile neutrophilic dermatosis [Sweet] (L98.2) INTERVENTIONS: - Hypertension Assess/ Monitor patient B/P and treat with prescribed medications Implement healthy diet Increase physical activity - LE Edema Monitor respiratory/cardiac status PT - Sweet Syndrome Assess/Monitor pt labs Administer prescribed medications and monitor for effectiveness RISK FOR COMPLICATIONS: - DVT Active and Passive ROM exercises Administer medications per MD order Assist patient with frequent position changes Elevate BLE - Skin Breakdown Encourage ambulation as tolerated Repositioning q 2 hours Use of pillows or foam wedges while in bed - Pain Administer prescribed pain medication as needed Anticipate the need for pain medication for optimal pain managment Assess pt for pain and Administer prescribed pain medication as needed Assist patient with frequent position changes at least every 2 hours Educate patient on relaxation and deep breathing techniques - Falls Maintain call light within patient reach for easy access to nursing assistance Provide assistance getting out of bed and with ambulation Provide assistive devices SUMMARY OF ACUTE HOSPITALIZATION: Pt. is a 57 yo female of unknown race. On 03/22/2022 she was admitted to [facility] with diagnosis Deconditioning. Her impairment category is Debility 16 - Debility (16). Pre-morbidly, Pt. was independent/mod-I in Locomotion and Self-Care; and she had good Safety Awarenes s, Balance, Transfers Control, and Self-Care. Currently, she has deficits of Locomotion, Safety Awareness, Balance, Transfers Control, Self-Care, a nd Endurance. Pt. is now referred to [facility] for acute in-patient rehabilitation in order to maximize patient's functional independence in activities of daily living, strength, ROM, and mobi lity. Patient has realistic goal of being discharged at assistance level 6-Sixto to reside at Home with Fam aurelio/Relatives. 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) Carpal tunnel syndrome (G56.0) PAST SURGICAL HISTORY: Left foot surgery carpal tunnel release MEDICATION ALLERGIES: No Known Drug Allergies (NKDA) ENVIRONMENTAL ALLERGIES: - Substance Allergies None Known - Other Allergies None Known CODE STATUS: Full code WEIGHT/HEIGHT/BMI: WEIGHT 285 lbs HEIGHT 5' 6" BMI 46 DIET: - Diet Type Regular - Diet - Solid Texture Regular - Diet - Liquid Texture Regular - Tube Feed N/A None REVIEW OF SYSTEMS: - Gen Alert and awake Lying in bed No apparent distress Oriented to: person, time, and place - Vital Signs Temperature: 98.4 F SBP/DBP: 161/72 Pulse: 67 Resp: 14 Vital signs stable, afebrile - CVS RRR VITAL SIGNS Temperature: 98.4 F SBP/DBP: 161/72 Pulse: 67 Resp: 14 Vital signs stable, afebrile MEDICATIONS/TREATMENT: Other- See attached MAR (Medication Administration Record). CURRENT SPHINCTER CONTROL: Pre-hospital bladder status: unspecified # of bladder accidents in the last 7 days prior to screenin Pre-hospital bowel status: unspecified # of bowel accidents in the last 7 days prior to screenin Last Bowel Movement Date: 04/07/2022 CURRENT LOCOMOTION STATUS: distance walked 0 feet DETAILED CURRENT FUNCTIONAL STATUS: - Bladder accident frequency: 7-Ind - No accidents in the past 7 days - Bowel accident frequency: 7-Ind - No accidents in the past 7 days - Walking score based on distance walked: 0(N/A) - Wheelchair score based on distance traveled: 0(N/A) QI SCORES: - Self-Care A. Eating 04-Supervision or touching assistance B. Oral hygiene 04-Supervision or touching assistance C. Toileting hygiene 02-Substantial/maximal assistance E. Shower/bathe self 02-Substantial/maximal assistance F. Upper body dressing 03-Partial/moderate assistance G. Lower body dressing 02-Substantial/maximal assistance H. Putting on/taking off footwear 02-Substantial/maximal assistance - Mobility A. Roll left and right 04-Supervision or touching assistance B. Sit to lying 04-Supervision or touching assistance C. Lying to sitting on side of bed 04-Supervision or touching assistance D. Sit to stand 02-Substantial/maximal assistance E. Chair/miu-ie-gopjw transfer 02-Substantial/maximal assistance F. Toilet transfer 02-Substantial/maximal assistance G. Car transfer 88-Not attempted due to medical condition or safety concerns I. Walk 10 feet 88-Not attempted due to medical condition or safety concerns J. Walk 50 feet with two turns 88-Not attempted due to medical condition or safety concerns K. Walk 150 feet 88-Not attempted due to medical condition or safety concerns L. Walking 10 feet on uneven surfaces 88-Not attempted due to medical condition or safety concerns M. 1 step (curb) 88-Not attempted due to medical condition or safety concerns N. 4 steps 88-Not attempted due to medical condition or safety concerns O. 12 steps 88-Not attempted due to medical condition or safety concerns P. Picking up object 88-Not attempted due to medical condition or safety concerns R. Wheel 50 feet with two turns 09-Not applicable S. Wheel 150 feet 09-Not applicable - Bladder and Bowel Bladder continence 0-Always continent Bowel continence 0-Always continent - Endurance Poor - Balance Poor - Safety Awareness Fair CURRENT FUNC. DEFICITS: Self-Care, Mobility, Endurance, Balance, and Safety Awareness THERAPY NOTES FROM ACUTE CARE: Attached. SPECIAL NEEDS: - Safety Concerns Skin breakdown precautions needed due to skin breakdown risk PATIENT NEEDS ACTIVE AND ONGOING THERAPEUTIC INTERVENTION OF MULTIPLE THERAPY DISCIPLINES, INCLUDING: - Dietary and Nutrition Adequate Nutrition. Nutritional Education. Nutritional Supplements. - Occupational Therapy Cognitive Retraining. Patient needs Occupational Therapy for a daily minimum of 1.5 hours at least 5 out of 7 days, to improve Activities of Daily Living, including: Eating, Grooming, Bathing, Dressing, Toileting, Toilet Transfers, Community Reintegration, Higher functional activities, Adaptive Equipme nt, Splinting, Household Tasks, and Other activities as determined. Visual Perceptual Training. - Physical Therapy Patient needs Physical Therapy for a daily minimum of 1.5 hours at least 5 out of 7 days, to improve: Mobility, Strengthening, Transfers, Stretching, ROM, Endurance, Ability to manage stairs, Gait, and Balance. PATIENT NEEDS CLOSE MEDICAL SUPERVISION BY A REHABILITATION PHYSICIAN FOR: Coordination of Treatment Team Medical and Co-Morbidity Management Wound Care Bowel and Bladder Management Pain Management PATIENT REQUIRES 24X7 REHAB NURSING FOR MEDICAL AND FUNCTIONAL MGT. OF THE FOLLOWING DEFICITS: Disease Management Medication Management Patient requires 24x7 Rehabilitation Nursing for: Pain Issues, Identifying and preventing risk factor s, Monitoring and reporting current medical conditions, Assisting with ambulation and transfer, Annamarie ting with all ADL-s, Teaching patients about disease process and medications, Family teaching, Provid ing safe environment, Bowel and Bladder Issues, Skin Integrity, and Medication Management Patient/Family Education Providing Safe Environment Skin Integrity PATIENT REQUIRES INTENSIVE, COORDINATED INTERDISCIPLINARY APPROACH TO REHAB: Arranging Home Equipment/Services Discharge Planning Family Intervention/Training Patient needs Dietary and Nutrition Services for: Adequate Nutrition, Nutritional Supplements, and Nu tritional Education Patient needs Operation Supervisor and/or Case Management for: Discharge Planning, Arranging Home Equipmen t or Services, and Family Interventions Operation Supervisor/Case Management PATIENT REHAB POTENTIAL: Ramy BERRIOS is able and expected to receive 3 hours of individualized therapy daily on at least 5 of e very 7 days Ramy BERRIOS's prognosis for significant practical improvement within a reasonable period of time appea rs Good Expected level of measurable improvement will be of a practical value to Rmay BERRIOS's functional capa city or adaptations to impairments Has a viable Discharge Plan Medically appropriate; condition is sufficiently stable to participate in intensive rehab program DISCHARGE PLAN: - Estimated Length of Stay (days) 13. - Consensus on plan Discharge plan has been discussed with primary caregiver. Patient/Family is in agreement with the richmond n. Primary caregiver is in agreement with the plan. - Patient/Family Goals Return home independently. - Planned Living Setting Upon Discharge Home, to live with Family/Relatives. Transitional Living. RECOMMENDED CARE LEVEL: IRF RECOMMENDATION DETAILS: Recommended Admission to Comprehensive Rehabilitation Program to Increase Functional [place] SCREENER'S COMPLETENESS CONFIRMATION: - Screening Confirmation The patient data collection on this preadmission screening form is finished PHYSICIANS REVIEW AND ADMISSION DETERMINATION Admit - Based on my review of the Pre-Admission Screening results, in my medical judgment and experie nce, I concur with the findings and recommend admission to [facility], as this patient requires an IRF level of care. SIGNATURE PANEL: Clinical Liaison - [electronically] signed by Osiris Grace on 04/07/2022 at 10:36 (CDT) Physician Reviewer - [electronically] signed by Dr. Jose Quinones M.D. on 04/07/2022 at 10:40 (CDT )
--- OUTSIDE RECORDS SUMMARY | 2022-04-07 13:06 | XMS REPORT | Continuity of Care Document ---
:1965 Author Organization [facility] t Address [address] [place] [address] Care Team Providers Name Role Phone RAYNE SHANKAR Attending Clinician Unavailable Rayne Shankar MD Attending Clinician [phone] Attending Clinician Unavailable Payers Payer Name Policy Type Policy Number Effective Date Expiration Date jose [facility] 2 [id number] 2022 00:00:00 Problems This patient has no known problems. Allergies, Adverse Reactions, Alerts This patient has no known allergies or adverse reactions. Medications This patient has no known medications. Procedures This patient has no known procedures. Encounters Start End Encounter Admission Attending Care Care Encounter Source Date/Time Date/Time Type Type Clinicians Facility Department ID 2022-04-06 2022-04-06 Outpatient JUSTO SHANKAR [id number] Justo 00:00:00 00:00:00 RAYNE mayfield 2022-04-01 2022-04-01 Outpatient JUSTO SHANKAR [id number] Justo 00:00:00 00:00:00 RAYNE mayfield 2022-03-27 2022-03-27 Outpatient JUSTO SHANKAR [id number] Justo 00:00:00 00:00:00 RAYNE mayfield 2022-03-21 2022-03-21 Outpatient JUSTO SHANKAR [id number] Justo 00:00:00 00:00:00 RAYNE Maneol tran 2022-03-20 2022-03-20 Office Jose R Shankar [id number] Justo 13:30:00 14:15:00 Visit Rayne Soares [id number] Se ybold Somogyi [id number] 2022-03-20 2022-03-20 Outpatient JUSTO SHANKAR [id number] Justo 00:00:00 00:00:00 RAYNE Seybol d 2022-03-17 2022-03-17 Outpatient JUSTO SHANKAR [id number] Justo 00:00:00 00:00:00 RAYNE Seybol d 2022-03-14 2022-03-14 Office Jose R Shankar [id number] Justo 16:15:00 16:45:00 Visit Rayne Soares [id number] Se ybmichelle Somogyi [id number] 2022-03-07 2022-03-07 Outpatient LAB90 JUSTO KEMP [id number] Justo 10:15:00 10:15:00 Seybol d 2022-03-07 2022-03-07 Office Jose R Shankar [id number] Justo 09:30:00 10:00:00 Visit Rayne Soares [id number] Se ybmichelle Somogyi [id number] Results This patient has no known results.
[2022-04-07 13:39] VITALS: BMI 46.7
[2022-04-07] MEDS ORDERED: HYDROCORTISONE 1 % OINT 30GM TOP PRN (16:46)
[2022-04-07] MEDS ORDERED: ALBUTEROL INHALER 60 PUFF/8 GM IH PRN (16:49)
[2022-04-07] MEDS ORDERED: ONDANSETRON 4 MG (ODT) TAB PO PRN (16:50)
[2022-04-07] MEDS: RIVAROXABAN 10 MG TABLET PO SCH (17:18)
[2022-04-07] MEDS: carvediloL 12.5 MG TAB PO SCH (17:19)
[2022-04-07] MEDS: MONTELUKAST 10 MG TAB PO SCH (19:02)
[2022-04-07] MEDS: VALSARTAN 160 MG TAB PO SCH (19:02)
[2022-04-07] MEDS: FAMOTIDINE 20 MG TAB PO SCH (19:02)
[2022-04-07] MEDS: predniSONE 10 MG TAB PO SCH (19:02)
[2022-04-07] MEDS: ACETAMINOPHEN 500 MG TAB PO PRN (20:31)
[2022-04-07 21:05] LABS: Urine Bilirubin Negative (Negative); Urine Blood 3+ (Negative); Urine Clarity Cloudy (Clear); Urine Color Yellow (Yellow); Urine Glucose Negative (Negative); Urine Protein 1+ (Negative); Urine Urobilinogen 0.2 mg/dL (0.2-1.0); Urine pH 5.5 (5.0-7.0)
[2022-04-07 22:18] LABS: Urine Bacteria >50 /HPF (<20)
[2022-04-08 05:03] LABS: Absolute Lymphocytes (CBC) 0.9 K/uL (0.7-4.9); Hematocrit 36.3 % (36.0-45.0); Lymphocytes % 8.3 % (15.3-44.8); MCV 91.2 fL (80-100); MPV 8.1 fL (7.6-11.3); RBC Red Blood Cell Count 3.98 M/uL (3.86-4.86)
[2022-04-08 05:07] LABS: Albumin 2.7 g/dL (3.4-5.0); Magnesium 2.4 mg/dL (1.8-2.4); Potassium 5.3 mmol/L (3.5-5.1); Prealbumin 36.1 mg/dL (20-40)
[2022-04-08] MEDS: carvediloL 12.5 MG TAB PO SCH ×2 (05:34→17:27)
[2022-04-08] MEDS: VALSARTAN 160 MG TAB PO SCH ×2 (08:00→19:58)
[2022-04-08] MEDS ORDERED: AMLODIPINE 10 MG TAB PO SCH ×2 (08:00→09:23)
[2022-04-08] MEDS: CRANBERRY FRUIT EXTRACT 200 MG CAP PO SCH ×2 (09:17→19:58)
[2022-04-08] MEDS: LACTOBACILLUS/ACIDOPHILUS TAB PO SCH (09:17)
[2022-04-08] MEDS: ASPIRIN EC 81 MG TAB PO SCH (09:18)
[2022-04-08] MEDS: predniSONE 10 MG TAB PO SCH ×2 (09:18→19:57)
[2022-04-08] MEDS: MAGNESIUM OXIDE 400 MG TAB PO SCH (09:18)
[2022-04-08] MEDS: FAMOTIDINE 20 MG TAB PO SCH ×2 (09:19→19:58)
[2022-04-08] MEDS: ACETAMINOPHEN 500 MG TAB PO PRN ×2 (11:04→20:09)
[2022-04-08] MEDS: ATOVAQUONE 1500 MG PO SCH (12:00)
--- NOTE | 2022-04-08 16:40 | PAPE ---
POST ADMISSION PHYSICIAN EVALUATION PATIENT: [facility] MR# [id number] REFERRING DOCTOR sudhir Kinney EVALUATION DATE AND TIME 04/08/2022 16:35 (CDT) NAME SABIHA BERRIOS DATE OF 1965 AGE 57 PHONE N# [id number] GENDER female EVALUATING PHYSICIAN Dr. Jose Quinones M.D. ADMISSION DIAGNOSIS: Deconditioning ONSET DATE 03/22/2022 SECONDARY/COMORBID DIAGNOSES TIERED: - Non-Tiered Essential (primary) hypertension (I10) Edema, unspecified (R60.9) Febrile neutrophilic dermatosis [Sweet] (L98.2) POST-ADMISSION FUNCTIONAL/MEDICAL STATUS: - Bladder Same accident frequency: 7-Ind - No accidents in the past 7 days - Bowel Same accident frequency: 7-Ind - No accidents in the past 7 days - Walking Same score based on distance walked: 0(N/A) - Wheelchair Same score based on distance traveled: 0(N/A) STATUS CHANGE EVALUATION: No change in Functional or Medical Status is identified compared with Pre-Admission screening. PATIENT NEEDS CLOSE MEDICAL SUPERVISION BY A REHABILITATION PHYSICIAN FOR: Coordination of Treatment Team Medical and Co-Morbidity Management Wound Care Bowel and Bladder Management Pain Management PATIENT REQUIRES 24X7 REHAB NURSING FOR MEDICAL AND FUNCTIONAL MGT. OF THE FOLLOWING DEFICITS: Disease Management Medication Management Patient requires 24x7 Rehabilitation Nursing for: Pain Issues, Identifying and preventing risk factor s, Monitoring and reporting current medical conditions, Assisting with ambulation and transfer, Annamarie ting with all ADL-s, Teaching patients about disease process and medications, Family teaching, Provid ing safe environment, Bowel and Bladder Issues, Skin Integrity, and Medication Management Patient/Family Education Providing Safe Environment Skin Integrity PATIENT REQUIRES INTENSIVE, COORDINATED INTERDISCIPLINARY APPROACH TO REHAB: Arranging Home Equipment/Services Discharge Planning Family Intervention/Training Patient needs Dietary and Nutrition Services for: Adequate Nutrition, Nutritional Supplements, and Nu tritional Education Patient needs Reed Repairer and/or Case Management for: Discharge Planning, Arranging Home Equipmen t or Services, and Family Interventions Reed Repairer/Case Management LIST OF IDENTIFIED AND POTENTIAL PROBLEMS: Alteration in leisure activities Bladder, Incontinence Blood Pressure, Hypertension/hypotension Issues Bowel, Incontinence Infection, Actual or Potential Mobility Impaired Pain, Alteration in Comfort Self Care Deficit Skin Integrity, Actual or Potential Urinary Tract Infection (UTI), Actual or Potential RISK FOR COMPLICATIONS - DVT Active and Passive ROM exercises. Administer medications per MD order. Assist patient with frequent p osition changes. Elevate BLE. - Skin Breakdown Encourage ambulation as tolerated. Repositioning q 2 hours. Use of pillows or foam wedges while in be d. - Pain Administer prescribed pain medication as needed. Anticipate the need for pain medication for optimal pain managment. Assess pt for pain and Administer prescribed pain medication as needed. Assist patien t with frequent position changes at least every 2 hours. Educate patient on relaxation and deep breat holly techniques. - Falls Maintain call light within patient reach for easy access to nursing assistance. Provide assistance ge tting out of bed and with ambulation. Provide assistive devices. INTERVENTIONS - Hypertension Assess/ Monitor patient B/P and treat with prescribed medications. Implement healthy diet. Increase p hysical activity. - LE Edema Monitor respiratory/cardiac status. PT. - Sweet Syndrome Assess/Monitor pt labs. Administer prescribed medications and monitor for effectiveness. PATIENT COULD BE AT RISK FOR COMPLICATIONS FROM ADVERSE MEDICAL CONDITIONS DUE TO HIS/HER COMORBIDITI ES AND THE RIGORS OF THE INTENSIVE REHABILLITATION PROGRAM. METHODS OR INTERVENTIONS TO AVOID COMPLIC ATIONS INCLUDE: - Bleeding Assess lab values and manage abnormalities. Nursing to teach precautions for anti-coagulation therapy . Wound to be assessed every shift. - Infection Clinical staff to assess and manage the signs and symptoms of infection including fever, redness, war mth, etc. - Urinary Tract Infection - Falls Patient will be evaluated for Fall Precautions and will be placed on Fall Precautions as indicated pe r protocol. - Skin Breakdown Nursing will assess skin daily using assessment tool and will place on Skin Breakdown Precautions as indicated per protocol. - Pain Clinical staff may employ non-medication methods such as massage, distraction, decrease stimulus, etc . as needed. Clinical staff will assess patient's pain level every shift per protocol to assess and e nsure pain management effectiveness. Medications will be given and the pain level re-assessed. PRELIMINARY PLAN OF CARE: - Physical Therapy Patient needs Physical Therapy for a daily minimum of 1.5 hours at least 5 out of 7 days, to improve: Mobility, Strengthening, Transfers, Stretching, ROM, Endurance, Ability to manage stairs, Gait, and Balance. - Rehabilitation Nursing Patient requires 24x7 Rehabilitation Nursing for: Pain Issues, Identifying and preventing risk factor s, Monitoring and reporting current medical conditions, Assisting with ambulation and transfer, Annamarie ting with all ADL-s, Teaching patients about disease process and medications, Family teaching, Provid ing safe environment, Bowel and Bladder Issues, Skin Integrity, and Medication Management. Patient needs Reed Repairer and/or Case Management for: Discharge Planning, Arranging Home Equipmen t or Services, and Family Interventions. - Dietary and Nutrition Services Patient needs Dietary and Nutrition Services for: Adequate Nutrition, Nutritional Supplements, and Nu tritional Education. - Occupational Therapy Patient needs Occupational Therapy for a daily minimum of 1.5 hours at least 5 out of 7 days, to impr ove Activities of Daily Living, including: Eating, Grooming, Bathing, Dressing, Toileting, Toilet Tra nsfers, Community Reintegration, Higher functional activities, Adaptive Equipment, Splinting, Househo ld Tasks, and Other activities as determined. QI SCORES: - Self-Care A. Eating 04-Supervision or touching assistance B. Oral hygiene 04-Supervision or touching assistance C. Toileting hygiene 02-Substantial/maximal assistance E. Shower/bathe self 02-Substantial/maximal assistance F. Upper body dressing 03-Partial/moderate assistance G. Lower body dressing 02-Substantial/maximal assistance H. Putting on/taking off footwear 02-Substantial/maximal assistance - Mobility A. Roll left and right 04-Supervision or touching assistance B. Sit to lying 04-Supervision or touching assistance C. Lying to sitting on side of bed 04-Supervision or touching assistance D. Sit to stand 02-Substantial/maximal assistance E. Chair/tzi-zl-fqlsl transfer 02-Substantial/maximal assistance F. Toilet transfer 02-Substantial/maximal assistance G. Car transfer 88-Not attempted due to medical condition or safety concerns I. Walk 10 feet 88-Not attempted due to medical condition or safety concerns J. Walk 50 feet with two turns 88-Not attempted due to medical condition or safety concerns K. Walk 150 feet 88-Not attempted due to medical condition or safety concerns L. Walking 10 feet on uneven surfaces 88-Not attempted due to medical condition or safety concerns M. 1 step (curb) 88-Not attempted due to medical condition or safety concerns N. 4 steps 88-Not attempted due to medical condition or safety concerns O. 12 steps 88-Not attempted due to medical condition or safety concerns P. Picking up object 88-Not attempted due to medical condition or safety concerns R. Wheel 50 feet with two turns 09-Not applicable S. Wheel 150 feet 09-Not applicable - Bladder and Bowel Bladder continence 0-Always continent Bowel continence 0-Always continent - Endurance Poor - Balance Poor - Safety Awareness Fair POTENTIAL FUNCTIONAL GOALS FOR PATIENT TO ACHIEVE BY DISCHARGE: - Safety Precaution Patient will remain free from falls or injury at time of discharge. - Bed Mobility Patient will perform bed mobility at 4-Buddy level of assistance. - Transfers Patient will complete transfers from bed to chair at 4-Buddy level of assistance. - Mobility Patient will ambulate 150 ft with 4-Buddy level of assistance with RW. PATIENT REHAB POTENTIAL Ramy BERRIOS is able and expected to receive 3 hours of individualized therapy daily on at least 5 of e very 7 days Ramy BERRIOS's prognosis for significant practical improvement within a reasonable period of time appea rs Good Expected level of measurable improvement will be of a practical value to Ramy BERRIOS's functional capa city or adaptations to impairments Has a viable Discharge Plan Medically appropriate; condition is sufficiently stable to participate in intensive rehab program DISCHARGE PLAN: - Estimated Length of Stay (days) 13. - Consensus on plan Discharge plan has been discussed with primary caregiver. Patient/Family is in agreement with the richmond n. Primary caregiver is in agreement with the plan. - Patient/Family Goals Return home independently. - Planned Living Setting Upon Discharge Home, to live with Family/Relatives. Transitional Living. CONCLUSION ON REHABILITATION NECESSITY: I have evaluated patient's pre-admission functional status and, comparing it to the patient's post-ad mission functional status now, I conclude that the pre-admission assessment was accurate. Patient's c ondition on admission supports the medical necessity of admission to IRF. It is safe to proceed with patient's therapy program. SIGNATURE PANEL: (CDT)
--- NOTE | 2022-04-08 16:45 | R.HP ---
HISTORY AND PHYSICAL FACILITY: [facility] ENCOUNTER DATE AND TIME: 04/08/2022 14:26 (CDT) MR#: [id number] NAME SABIHA BERRIOS ADDRESS: [address] [place] [address]: [place] [address] [address] PHONE: DATE OF : 1965 AGE: 57 SSN# [id number] GENDER: Female DEXTERITY Unknown dexterity MARITAL STATUS Unknown race PRE-HOSPITAL LIVING SETTING 01 - Home (private home/apt. board/care, assisted living, chcf, transitional living) PRE-HOSPITAL LIVING WITH Family/Relatives ENCOUNTER PHYSICIAN: Dr. Jose Quinones M.D. REFERRING DOCTOR: sudhir Kinney DATE OF ADMISSION: 04/07/2022 12:59 (CDT) REFERRING FACILITY [facility] HOME TYPE AND DETAILS: Type of home: single family house # of levels in the residence: 1 # of steps to enter the residence: 0 # of steps within the residence: 0 ONSET DATE: 03/22/2022 PRIMARY DIAGNOSIS-RELATED SURGERIES: None SECONDARY/COMORBID DIAGNOSES (TIERED): - Non-Tiered Essential (primary) hypertension (I10) Edema, unspecified (R60.9) Febrile neutrophilic dermatosis [Sweet] (L98.2) HISTORY OF PRESENT ILLNESS (HPI): Pt. is a 57 yo female of unknown race. On 03/22/2022 she was admitted to [facility] with diagnosis Deconditioning. Her impairment category is Debility 16 - Debility (16). Pre-morbidly, Pt. was independent/mod-I in Locomotion and Self-Care; and she had good Safety Awarenes s, Balance, Transfers Control, and Self-Care. Currently, she has deficits of Locomotion, Safety Awareness, Balance, Transfers Control, Self-Care, a nd Endurance. Pt. is now referred to [facility] for acute in-patient rehabilitation in order to maximize patient's functional independence in activities of daily living, strength, ROM, and mobi lity. Patient has realistic goal of being discharged at assistance level 6-Sixto to reside at Home with Fam aurelio/Relatives. 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) Carpal tunnel syndrome (G56.0) PAST SURGICAL HISTORY: Left foot surgery carpal tunnel release SOCIAL HISTORY: - Home Living Family/Relatives REVIEW OF SYSTEMS: - Gen No Chills Fatigue No Fever - Eyes No Double Vision No itchiness - ENMT No Difficulty Swallowing - CVS Chest Discomfort No Chest Pain Fatigue No Weight Gain - Resp No Cough No Shortness of Breath - GI Continent No Abdominal Pain No Constipation No Diarrhea - Continent No Kidney Pain No Painful Urination No Urinary Urgency - MSK No Joint Pain No Muscle Cramps Stiffness - Skin No Itching No Rash No Suspicious Lesions - Neuro Coordination Difficulty No Difficulty with Concentration No Memory Loss No Seizures Weakness - Psych No Anxiety No Depression No HIV Exposure No Persistent Infections No Seasonal Allergies - Endo No Cold/Heat Intolerance No Excessive Hunger No Excessive Thirst No Excessive Urination PHYSICAL EXAM - Gen Alert and awake Lying in bed No apparent distress Oriented to: person, time, and place - Skin No skin breakdown. No abnormalities - Eyes No abnormalities - ENMT No abnormalities - Neck No abnormalities - CVS RRR - Chest No abnormalities - Abd Obese, soft, nontender - GI Non distended Deferred - No abnormalities - Ext Mild bilateral lower extremity edema. - MSK 4+/5 weakness in both lower extremities. - Neuro No focal deficits VITAL SIGNS Temperature: 97.8 F SBP/DBP: 139/62 Pulse: 64 Resp: 16 NURSING: - Shower allowing shower ACTIVITIES OOB only with supervision QI SCORES: - Self-Care A. Eating 04-Supervision or touching assistance B. Oral hygiene 04-Supervision or touching assistance C. Toileting hygiene 02-Substantial/maximal assistance E. Shower/bathe self 02-Substantial/maximal assistance F. Upper body dressing 03-Partial/moderate assistance G. Lower body dressing 02-Substantial/maximal assistance H. Putting on/taking off footwear 02-Substantial/maximal assistance - Mobility A. Roll left and right 04-Supervision or touching assistance B. Sit to lying 04-Supervision or touching assistance C. Lying to sitting on side of bed 04-Supervision or touching assistance D. Sit to stand 02-Substantial/maximal assistance E. Chair/fjj-ob-wnekd transfer 02-Substantial/maximal assistance F. Toilet transfer 02-Substantial/maximal assistance G. Car transfer 88-Not attempted due to medical condition or safety concerns I. Walk 10 feet 88-Not attempted due to medical condition or safety concerns J. Walk 50 feet with two turns 88-Not attempted due to medical condition or safety concerns K. Walk 150 feet 88-Not attempted due to medical condition or safety concerns L. Walking 10 feet on uneven surfaces 88-Not attempted due to medical condition or safety concerns M. 1 step (curb) 88-Not attempted due to medical condition or safety concerns N. 4 steps 88-Not attempted due to medical condition or safety concerns O. 12 steps 88-Not attempted due to medical condition or safety concerns P. Picking up object 88-Not attempted due to medical condition or safety concerns R. Wheel 50 feet with two turns 09-Not applicable S. Wheel 150 feet 09-Not applicable - Bladder and Bowel Bladder continence 0-Always continent Bowel continence 0-Always continent - Endurance Poor - Balance Poor - Safety Awareness Fair CURRENT FUNC. DEFICITS: Self-Care, Mobility, Endurance, Balance, and Safety Awareness MEDICATIONS: - Other See attached MAR (Medication Administration Record) ASSESSMENT: Pt. is a 57 yo female of unknown race.On 03/22/2022 she was admitted to [facility] with di agnosis Deconditioning.Her impairment category is Debility 16 - Debility (16).Pre-morbidly, Pt. was independent/mod-I in Locomotion and Self-Care; and she had good Safety Awareness, Balance, Transfers Control, and Self-Care.Currently, she has deficits of Locomotion, Safety Awareness, Balance, Transfer s Control, Self-Care, and Endurance.Pt. is now referred to [facility] for acut e in-patient rehabilitation in order to maximize patient's functional independence in activities of d aily living, strength, ROM, and mobility.- Rehab Goal Patient has realistic goal of being discharged at assistance level 6-Sixto to reside at Home with Fam aurelio/Relatives. - Physical Therapy Gait dysfunction - to improve, our physical therapists will perform initial evaluation of pt's status upon admission and devise an individualized program for Gait Training, and Wheel Chair mobility Inability to transfer - to improve, our physical therapists will perform initial evaluation of pt's s tatus upon admission and devise an individualized program for Bed mobility Need for home safety evaluation - to improve, our physical therapists will perform initial evaluation of pt's status upon admission and devise an individualized program for Home Evaluation Need in caregiver upon discharge - to improve, our physical therapists will perform initial evaluatio n of pt's status upon admission and devise an individualized program for Caregiver Training New precaution - to improve, our physical therapists will perform initial evaluation of pt's status u evelyn admission and devise an individualized program for Patient precaution education Edema - to improve, our physical therapists will perform initial evaluation of pt's status upon admi ssion and devise an individualized program for Elevation Training, and Lymphedema Therapy Poor balance - to improve, our physical therapists will perform initial evaluation of pt's status upo n admission and devise an individualized program for Balance Training Poor endurance - to improve, our physical therapists will perform initial evaluation of pt's status u evelyn admission and devise an individualized program for Endurance Training Weakness - to improve, our physical therapists will perform initial evaluation of pt's status upon ad mission and devise an individualized program for Aquatic Therapy, Neuromuscular Reeducation, and Stre ngthening Achieving independence - to improve, our physical therapists will perform initial evaluation of pt's status upon admission and devise an individualized program for Community Reintegration Activities - Occupational Therapy ADL deficits - to improve, our occupation therapists will perform initial evaluation of pt's status u evelyn admission and devise an individualized program for Bathing, Bed mobility, Community Reintegration , Cooking, Dressing, Eating, Fine Motor Skills, Grooming, Homemaking, Kitchen Mobility, Laundry, Deja ent Education, Safety Awareness, Splinting - Positioning, Transfers(Toilet, Tub, Shower), and Wheel C hair Management Need for healthcare administration internship - to improve, our occupation therapists will perform initial evaluation of pt's s tatus upon admission and devise an individualized program for Caregiver Training Weakness - to improve, our occupation therapists will perform initial evaluation of pt's status upon admission and devise an individualized program for Aquatic Therapy, Balance, Endurance, UE ROM, and U E strengthening MEDICAL PLAN: - Diet Type Start Regular - Diet - Liquid Texture Start Regular - Tube Feed Start N/A - Other See attached MAR (Medication Administration Record) - Diet - Solid Texture Regular - Shower shower DISCHARGE PLAN: - Estimated Length of Stay (days) 13. - Consensus on plan Discharge plan has been discussed with primary caregiver. Patient/Family is in agreement with the [place] n. Primary caregiver is in agreement with the plan. - Patient/Family Goals Return home independently. - Planned Living Setting Upon Discharge Home, to live with Family/Relatives. Transitional Living. SIGNATURE PANEL: (CDT)
[2022-04-08] MEDS: RIVAROXABAN 10 MG TABLET PO SCH (17:27)
[2022-04-08] MEDS: MONTELUKAST 10 MG TAB PO SCH (19:57)
[2022-04-08] MEDS: DIPHENHYDRAMINE 25 MG TAB/CAP PO PRN (20:08)
[2022-04-09] MEDS: carvediloL 12.5 MG TAB PO SCH ×2 (05:28→17:08)
[2022-04-09] MEDS: MAGNESIUM OXIDE 400 MG TAB PO SCH (09:10)
[2022-04-09] MEDS: CRANBERRY FRUIT EXTRACT 200 MG CAP PO SCH ×2 (09:11→21:20)
[2022-04-09] MEDS: predniSONE 10 MG TAB PO SCH ×2 (09:11→21:22)
[2022-04-09] MEDS: ASPIRIN EC 81 MG TAB PO SCH (09:11)
[2022-04-09] MEDS: LACTOBACILLUS/ACIDOPHILUS TAB PO SCH (09:11)
[2022-04-09] MEDS: FAMOTIDINE 20 MG TAB PO SCH ×2 (09:12→21:21)
[2022-04-09] MEDS: ATOVAQUONE 1500 MG PO SCH (12:00)
[2022-04-09] MEDS: VALSARTAN 160 MG TAB PO SCH (14:10)
[2022-04-09] MEDS: RIVAROXABAN 10 MG TABLET PO SCH (17:08)
[2022-04-09] MEDS: VALSARTAN 80 MG TAB PO SCH (17:08)
[2022-04-09] MEDS: AMLODIPINE 5 MG TAB PO SCH (17:09)
--- NOTE | 2022-04-09 17:28 | R.PN ---
PROGRESS NOTES ENCOUNTER DATE AND TIME: 04/09/2022 17:19 (CDT) NAME SABIHA BERRIOS DATE OF : 1965 DATE OF ADMISSION: 04/07/2022 12:59 (CDT) DeconditioningCHIEF COMPLAINT: Sepsis, debility SUBJECTIVE: Pt denied any Shortness of Breath. Pt denied any depression. CBC with diff is essentially normal. Potassium increased to 5.3, glucose 160. Self-propelled wheelchair 500' with standby assistance. She did multiple [id number] in the paral lel bars. VITAL SIGNS Temperature: 97.4 F SBP/DBP: 145/64 Pulse: 65 Resp: 16 MEDICATION ALLERGIES: No Known Drug Allergies (NKDA) ENVIRONMENTAL ALLERGIES: - Substance Allergies None Known - Other Allergies None Known NURSING: - Shower allowing shower ACTIVITIES OOB only with supervision THERAPIES: - Dietary and Nutrition Adequate Nutrition. Nutritional Education. Nutritional Supplements. - Occupational Therapy Cognitive Retraining. Patient needs Occupational Therapy for a daily minimum of 1.5 hours at least 5 out of 7 days, to improve Activities of Daily Living, including: Eating, Grooming, Bathing, Dressing, Toileting, Toilet Transfers, Community Reintegration, Higher functional activities, Adaptive Equipme nt, Splinting, Household Tasks, and Other activities as determined. Visual Perceptual Training. - Physical Therapy Patient needs Physical Therapy for a daily minimum of 1.5 hours at least 5 out of 7 days, to improve: Mobility, Strengthening, Transfers, Stretching, ROM, Endurance, Ability to manage stairs, Gait, and Balance. PHYSICAL EXAM - Gen Alert and awake Lying in bed No apparent distress Oriented to: person, time, and place - Skin No skin breakdown. No abnormalities - Eyes No abnormalities - ENMT No abnormalities - Neck No abnormalities - CVS RRR - Chest No abnormalities - Abd Obese, soft, nontender - GI Non distended Deferred - No abnormalities - Ext Mild bilateral lower extremity edema. - MSK 4+/5 weakness in both lower extremities. - Neuro No focal deficits ASSESSMENT: Pt. is a 57 yo female of unknown race.On 03/22/2022 she was admitted to [facility] with di agnosis Deconditioning.Her impairment category is Debility 16 - Debility (16).Pre-morbidly, Pt. was independent/mod-I in Locomotion and Self-Care; and she had good Safety Awareness, Balance, Transfers Control, and Self-Care.Currently, she has deficits of Locomotion, Safety Awareness, Balance, Transfer s Control, Self-Care, and Endurance.Pt. is now referred to [facility] for acut e in-patient rehabilitation in order to maximize patient's functional independence in activities of d aily living, strength, ROM, and mobility.- Rehab Goal Patient has realistic goal of being discharged at assistance level 6-Sixto to reside at Home with Fam aurelio/Relatives. MDM/PLAN: - Physical Therapy Gait dysfunction - to improve, our physical therapists will perform initial evaluation of pt's statu s upon admission and devise an individualized program for Gait Training, and Wheel Chair mobility Inability to transfer - to improve, our physical therapists will perform initial evaluation of pt's status upon admission and devise an individualized program for Bed mobility Need for home safety evaluation - to improve, our physical therapists will perform initial evaluatio n of pt's status upon admission and devise an individualized program for Home Evaluation Need in caregiver upon discharge - to improve, our physical therapists will perform initial evaluati on of pt's status upon admission and devise an individualized program for Caregiver Training New precaution - to improve, our physical therapists will perform initial evaluation of pt's status upon admission and devise an individualized program for Patient precaution education Edema - to improve, our physical therapists will perform initial evaluation of pt's status upon admis filiberto and devise an individualized program for Elevation Training, and Lymphedema Therapy Poor balance - to improve, our physical therapists will perform initial evaluation of pt's status up on admission and devise an individualized program for Balance Training Poor endurance - to improve, our physical therapists will perform initial evaluation of pt's status upon admission and devise an individualized program for Endurance Training Weakness - to improve, our physical therapists will perform initial evaluation of pt's status upon a dmission and devise an individualized program for Aquatic Therapy, Neuromuscular Reeducation, and Str engthening Achieving independence - to improve, our physical therapists will perform initial evaluation of pt's status upon admission and devise an individualized program for Community Reintegration Activities - Occupational Therapy ADL deficits - to improve, our occupation therapists will perform initial evaluation of pt's status upon admission and devise an individualized program for Bathing, Bed mobility, Community Reintegratio n, Cooking, Dressing, Eating, Fine Motor Skills, Grooming, Homemaking, Kitchen Mobility, Laundry, Pat ient Education, Safety Awareness, Splinting - Positioning, Transfers(Toilet, Tub, Shower), and Wheel Chair Management Need for career development coordinator/teacher - to improve, our occupation therapists will perform initial evaluation of pt's status upon admission and devise an individualized program for Caregiver Training Weakness - to improve, our occupation therapists will perform initial evaluation of pt's status upon admission and devise an individualized program for Aquatic Therapy, Balance, Endurance, UE ROM, and UE strengthening - Other See attached MAR (Medication Administration Record) - Diet Type Continue Regular - Diet - Liquid Texture Continue Regular - Tube Feed Continue N/A - Diet - Solid Texture Continue Regular - Shower allowing shower FUNCTIONAL STATUS: UPDATED AT WEEKLY TEAM CONFERENCE - Bladder Same accident frequency: 7-Ind - No accidents in the past 7 days - Bowel Same accident frequency: 7-Ind - No accidents in the past 7 days - Walking Same score based on distance walked: 0(N/A) - Wheelchair Same score based on distance traveled: 0(N/A) FUNCTIONAL STATUS: - Self-Care A. Eating Ind B. Grooming Sixto C. Bathing modA D. Dressing - Upper Buddy E. Dressing - Lower modA F. Toileting sup - Sphincter Control G. Bladder control Sixto H. Bowel control Sixto - Transfers Control I. Bed/Chair/Wheelchair modA J. Toilet modA K. Tub/Shower modA - Locomotion L. Walk/Wheelchair (B) modA M. Stairs Buddy - Communication N. Comprehension (B) Sixto O. Expression (B) Sixto - Social Cognition P. Social Interaction Sixto Q. Problem Solving Sixto R. Memory Sixto - Endurance Fair - Balance Poor - Safety Awareness Good QI SCORES: - Self-Care A. Eating 04-Supervision or touching assistance B. Oral hygiene 04-Supervision or touching assistance C. Toileting hygiene 02-Substantial/maximal assistance E. Shower/bathe self 02-Substantial/maximal assistance F. Upper body dressing 03-Partial/moderate assistance G. Lower body dressing 02-Substantial/maximal assistance H. Putting on/taking off footwear 02-Substantial/maximal assistance - Mobility A. Roll left and right 04-Supervision or touching assistance B. Sit to lying 04-Supervision or touching assistance C. Lying to sitting on side of bed 04-Supervision or touching assistance D. Sit to stand 02-Substantial/maximal assistance E. Chair/qkb-me-njcle transfer 02-Substantial/maximal assistance F. Toilet transfer 02-Substantial/maximal assistance G. Car transfer 88-Not attempted due to medical condition or safety concerns I. Walk 10 feet 88-Not attempted due to medical condition or safety concerns J. Walk 50 feet with two turns 88-Not attempted due to medical condition or safety concerns K. Walk 150 feet 88-Not attempted due to medical condition or safety concerns L. Walking 10 feet on uneven surfaces 88-Not attempted due to medical condition or safety concerns M. 1 step (curb) 88-Not attempted due to medical condition or safety concerns N. 4 steps 88-Not attempted due to medical condition or safety concerns O. 12 steps 88-Not attempted due to medical condition or safety concerns P. Picking up object 88-Not attempted due to medical condition or safety concerns R. Wheel 50 feet with two turns 09-Not applicable S. Wheel 150 feet 09-Not applicable - Bladder and Bowel Bladder continence 0-Always continent Bowel continence 0-Always continent - Endurance Poor - Balance Poor - Safety Awareness Fair [facility] DEFICITS: Self-Care, Mobility, Endurance, Balance, and Safety Awareness SIGNATURE PANEL: (CDT)
[2022-04-09] MEDS: DIPHENHYDRAMINE 25 MG TAB/CAP PO PRN (21:18)
[2022-04-09] MEDS: ACETAMINOPHEN 500 MG TAB PO PRN (21:18)
[2022-04-09] MEDS: MONTELUKAST 10 MG TAB PO SCH (21:21)
[2022-04-10] MEDS: ACETAMINOPHEN 500 MG TAB PO PRN ×2 (03:56→20:01)
[2022-04-10 04:33] LABS: Absolute Lymphocytes (CBC) 1.1 K/uL (0.7-4.9); Hematocrit 33.9 % (36.0-45.0); Lymphocytes % 13.4 % (15.3-44.8); MCV 90.7 fL (80-100); MPV 7.7 fL (7.6-11.3); RBC Red Blood Cell Count 3.73 M/uL (3.86-4.86)
[2022-04-10 05:11] LABS: Albumin 2.7 g/dL (3.4-5.0); Magnesium 2.3 mg/dL (1.8-2.4); Potassium 5.5 mmol/L (3.5-5.1); Prealbumin 32.8 mg/dL (20-40)
[2022-04-10] MEDS: carvediloL 12.5 MG TAB PO SCH ×2 (06:42→16:54)
[2022-04-10] MEDS: predniSONE 10 MG TAB PO SCH ×2 (08:42→19:59)
[2022-04-10] MEDS: LACTOBACILLUS/ACIDOPHILUS TAB PO SCH (08:42)
[2022-04-10] MEDS: MAGNESIUM OXIDE 400 MG TAB PO SCH (08:42)
[2022-04-10] MEDS: CRANBERRY FRUIT EXTRACT 200 MG CAP PO SCH ×2 (08:42→19:59)
[2022-04-10] MEDS: ASPIRIN EC 81 MG TAB PO SCH (08:42)
[2022-04-10] MEDS: FAMOTIDINE 20 MG TAB PO SCH ×2 (08:42→20:00)
[2022-04-10] MEDS: VALSARTAN 80 MG TAB PO SCH ×2 (09:31→20:00)
[2022-04-10] MEDS: AMLODIPINE 5 MG TAB PO SCH ×2 (09:32→20:00)
[2022-04-10] MEDS: ATOVAQUONE 1500 MG PO SCH (11:50)
[2022-04-10] MEDS ORDERED: SOD POLYSTYREN SUL 15 GM/60 ML UCUP PO ONE (12:00)
[2022-04-10] MEDS: RIVAROXABAN 10 MG TABLET PO SCH (16:54)
[2022-04-10] MEDS: MONTELUKAST 10 MG TAB PO SCH (19:59)
[2022-04-10] MEDS: DIPHENHYDRAMINE 25 MG TAB/CAP PO PRN (19:59)
[2022-04-11] MEDS: carvediloL 12.5 MG TAB PO SCH ×2 (05:21→16:55)
[2022-04-11 05:26] LABS: Potassium 4.8 mmol/L (3.5-5.1)
[2022-04-11] MEDS: LACTOBACILLUS/ACIDOPHILUS TAB PO SCH (08:32)
[2022-04-11] MEDS: CRANBERRY FRUIT EXTRACT 200 MG CAP PO SCH ×2 (08:32→20:00)
[2022-04-11] MEDS: MAGNESIUM OXIDE 400 MG TAB PO SCH (08:32)
[2022-04-11] MEDS: FAMOTIDINE 20 MG TAB PO SCH ×2 (08:32→20:04)
[2022-04-11] MEDS: ASPIRIN EC 81 MG TAB PO SCH (08:33)
[2022-04-11] MEDS: AMLODIPINE 5 MG TAB PO SCH ×2 (08:33→20:04)
[2022-04-11] MEDS: predniSONE 10 MG TAB PO SCH ×2 (08:34→20:00)
[2022-04-11] MEDS: ACETAMINOPHEN 500 MG TAB PO PRN ×2 (09:10→22:06)
[2022-04-11] MEDS: VALSARTAN 80 MG TAB PO SCH ×2 (10:10→20:01)
[2022-04-11] MEDS: ATOVAQUONE 1500 MG PO SCH (11:57)
--- NOTE | 2022-04-11 14:08 | P.RH.PN ---
Estimated Length of Stay: 13 Expected Discharge Date: 04/19/22 Discharge Disposition Plan: Home Family Support: Yes Correction Goal: Mobility, Transfers, Self Care Vital Signs: Last Vital Signs Temp 98.0 F 04/11/22 08:44 Pulse 59 04/11/22 10:10 Resp 14 04/11/22 08:44 BP 150/68 H 04/11/22 10:10 Pulse Ox 98 04/11/22 08:44 Laboratory: Laboratory Last Values WBC 8.00 K/uL (4.3-10.9) D 04/10/22 04:21 RBC 3.73 M/uL (3.86-4.86) L 04/10/22 04:21 Hgb 11.5 g/dL (12.0-15.0) L 04/10/22 04:21 Hct 33.9 % (36.0-45.0) L 04/10/22 04:21 MCV 90.7 fL (80-100) 04/10/22 04:21 MCH 30.9 pg (27.0-35.0) 04/10/22 04:21 MCHC 34.0 g/dL (32.0-36.0) 04/10/22 04:21 RDW 15.2 % (12.1-15.2) 04/10/22 04:21 Plt Count 283 K/uL (152-406) 04/10/22 04:21 MPV 7.7 fL (7.6-11.3) 04/10/22 04:21 Neutrophils % 62.8 % (41.7-73.7) 04/10/22 04:21 Lymphocytes % 13.4 % (15.3-44.8) L 04/10/22 04:21 Monocytes % 7.6 % (3.3-12.3) 04/10/22 04:21 Eosinophils % 14.0 % (0-4.4) H 04/10/22 04:21 Basophils % 2.2 % (0-1.3) H 04/10/22 04:21 Absolute Neutrophils 5.0 K/uL (1.8-8.0) 04/10/22 04:21 Absolute Lymphocytes 1.1 K/uL (0.7-4.9) 04/10/22 04:21 Absolute Monocytes 0.6 K/uL (0.1-1.3) 04/10/22 04:21 Absolute Eosinophils 1.1 K/uL (0-0.5) H 04/10/22 04:21 Absolute Basophils 0.2 K/uL (0-0.5) 04/10/22 04:21 Sodium 139 mmol/L (136-145) 04/11/22 04:15 Potassium 4.8 mmol/L (3.5-5.1) 04/11/22 04:15 Chloride 107 mmol/L (98-107) 04/11/22 04:15 Carbon Dioxide 26 mmol/L (21-32) 04/11/22 04:15 Anion Gap 10.8 mEq/L (5.0-15.0) 04/11/22 04:15 BUN 33 mg/dL (7-18) H 04/11/22 04:15 Creatinine 0.79 mg/dL (0.55-1.3) 04/11/22 04:15 Est GFR (CKD-EPI) 87 ml/min (=/>90) L 04/11/22 04:15 Glucose 149 mg/dL (74-106) H 04/11/22 04:15 Calcium 8.8 mg/dL (8.5-10.1) 04/11/22 04:15 Magnesium 2.3 mg/dL (1.8-2.4) 04/10/22 04:21 Albumin 2.7 g/dL (3.4-5.0) L 04/10/22 04:21 Prealbumin 32.8 mg/dL (20-40) 04/10/22 04:21 Urine Color Yellow (Yellow) 04/07/22 21:01 Urine Clarity Cloudy (Clear) 04/07/22 21:01 Urine pH 5.5 (5.0-7.0) 04/07/22 21:01 Ur Specific [place] 1.020 (1.005-1.030) 04/07/22 21:01 Glucose (UA)(Auto) Negative (Negative) 04/07/22 21:01 Urine Ketones Negative (Negative) 04/07/22 21:01 Urine Blood 3+ (Negative) H 04/07/22 21:01 Urine Nitrite Negative (Negative) 04/07/22 21: Urine Bilirubin Negative (Negative) 04/07/22 21:01 Urine Urobilinogen 0.2 mg/dL (0.2-1.0) 04/07/22 21:01 Ur Leukocyte Esterase Negative (Negative) 04/07/22 21:01 Urine RBC 11-20 /HPF (None Seen) H 04/07/22 21:01 Urine Red Cell Clumps Cancelled 04/07/22 20:40 Urine WBC <5 /HPF (<5) 04/07/22 21:01 Urine WBC Clumps Cancelled 04/07/22 20:40 Ur Squamous Epith Cells <5 /HPF (None Seen) 04/07/22 21:01 U Non-Squamous Epi Cells Cancelled 04/07/22 20:40 Ur Transition Epith Cell Cancelled 04/07/22 20:40 Ur Renal Epithelial Cell Cancelled 04/07/22 20:40 Calcium Carbonate Cryst Cancelled 04/07/22 20:40 Calcium Oxalate Crystal Cancelled 04/07/22 20:40 Leucine Crystals Cancelled 04/07/22 20:40 Cystine Crystals Cancelled 04/07/22 20:40 Uric Acid Crystals Cancelled 04/07/22 20:40 Triple Phos Crystals Cancelled 04/07/22 20:40 Tyrosine Crystals Cancelled 04/07/22 20:40 Unidentified Crystals Cancelled 04/07/22 20:40 Amorphous Crystals Cancelled 04/07/22 20:40 Urine Bacteria >50 /HPF (<20) H 04/07/22 21:01 Hyaline Casts Cancelled 04/07/22 20:40 Granular Casts Cancelled 04/07/22 20:40 Waxy Casts Cancelled 04/07/22 20:40 RBC Casts Cancelled 04/07/22 20:40 WBC Casts Cancelled 04/07/22 20:40 Urine Mucus Cancelled 04/07/22 20:40 Urine Trichomonas Cancelled 04/07/22 20:40 Ur Yeast w Hyphae Cancelled 04/07/22 20:40 Urine Yeast (Budding) Cancelled 04/07/22 20:40 Urine Sperm Cancelled 04/07/22 20:40 Ur Oval Fat Bodies Cancelled 04/07/22 20:40 Urine Total Protein 1+ (Negative) H 04/07/22 21:01 Urine Ascorbic Acid Cancelled 04/07/22 20:40 Urine Fat Cancelled 04/07/22 20:40 Weight: 290 lb Wound Present: Yes Closed Surgical Incision Present: No Negative Pressure Wound Therapy Present: No Physician Update: Sit to stand, transfers, in parallel bars CGA, WC 250' SBA. Shower, bathing, lower body dressing at max assistance. Comment: noted berny lower ext discoloration and scaly skin Functional Improvement: Patient was fairly newly admitted, however demonstrates good work ethic, and desire to improve. Patient continues to be fearful of "falling". 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 Please see the Rehabilitation Signature page for all necessary signatures.
[2022-04-11] MEDS: RIVAROXABAN 10 MG TABLET PO SCH (16:55)
[2022-04-11] MEDS: MONTELUKAST 10 MG TAB PO SCH (20:04)
[2022-04-11] MEDS: MELATONIN 3 MG TABLET PO PRN (20:07)
[2022-04-11] MEDS: DIPHENHYDRAMINE 25 MG TAB/CAP PO PRN (22:06)
[2022-04-12] MEDS: carvediloL 12.5 MG TAB PO SCH ×2 (05:04→17:14)
[2022-04-12] MEDS: MAGNESIUM OXIDE 400 MG TAB PO SCH (07:30)
[2022-04-12] MEDS: CRANBERRY FRUIT EXTRACT 200 MG CAP PO SCH ×2 (07:30→20:28)
[2022-04-12] MEDS: ASPIRIN EC 81 MG TAB PO SCH (07:30)
[2022-04-12] MEDS: LACTOBACILLUS/ACIDOPHILUS TAB PO SCH (07:30)
[2022-04-12] MEDS: predniSONE 10 MG TAB PO SCH ×2 (07:31→20:28)
[2022-04-12] MEDS: FAMOTIDINE 20 MG TAB PO SCH ×2 (07:31→20:28)
[2022-04-12] MEDS: AMLODIPINE 5 MG TAB PO SCH ×2 (08:30→20:00)
--- NOTE | 2022-04-12 10:04 | P.CNS ---
Date of Consult: 04/12/22 Reason for Consult: Painful toenails Chief Complaint: Painful elongated toenails History of Present Illness: Patient unable to reach toenails Allergies amoxicillin [From Augmentin] Allergy (Unknown, Verified 03/22/22 02:07) unknown clavulanic acid [From Augmentin] Allergy (Unknown, Verified 03/22/22 02:07) unknown codeine Allergy (Verified 03/22/22 02:07) unknown furosemide [From Lasix] Allergy (Verified 03/26/22 15:35) Hives/Rash morphine Allergy (Verified 03/29/22 08:46) Rash sulfamethoxazole [From Bactrim] Adverse Reaction (Verified 03/22/22 02:07) Hives/Rash trimethoprim [From Bactrim] Adverse Reaction (Verified 03/22/22 02:07) Hives/Rash Home Medications: Famotidine 20 mg PO BID 03/22/22 Albuterol Inhaler [Ventolin Inhaler*] 1 puff IH Q6H PRN 04/07/22 Hydrocortisone Oint [Cortizone 1% Ointment*] 1 appl TOP TID PRN tube 04/07/22 Montelukast [Singulair*] 10 mg PO BEDTIME tab 04/07/22 Rivaroxaban [Xarelto*] 10 mg PO DAILY AT SUPPER 04/07/22 Valsartan [Diovan*] 160 mg PO BID tab 04/07/22 carvediloL [Coreg*] 12.5 mg PO BID 6AM 6PM tab 04/07/22 predniSONE [Deltasone*] 10 mg PO BID 19 Days tab 04/07/22 Acetaminophen [Tylenol Extra Strength] 500 mg PO Q6HP PRN 04/08/22 Acidophilus/Bulgaricus [Lactinex Tablet Chewable] 1 each PO DAILY 04/08/22 Amlodipine [Norvasc] 10 mg PO DAILY 04/08/22 Aspirin [Aspirin EC] 81 mg PO DAILY 04/08/22 Diphenhydramine HCl [Benadryl Allergy] 25 mg PO Q6HP PRN 04/08/22 Fluocinonide [Lidex] 30 gm TP BID PRN 04/08/22 Ondansetron [Zofran] 4 mg PO Q6H PRN 04/08/22 - Past Medical/Surgical History Diabetic: No -: Hypertension -: Hyperlipidemia -: Guillain-Alvares syndrome -: Left foot -: Carpal tunnel Psychosocial/ Personal History: Patient is disabled, lives at home with her - Family History Mother Medical History: Diabetes - Social History Alcohol use: No CD- Drugs: No Caffeine use: Yes Place of Residence: Home Review of Systems 10-point ROS is otherwise unremarkable Physical Examination Temp Pulse Resp BP Pulse Ox 98.2 F 57 16 137/63 95 04/11/22 20:20 04/12/22 08:30 04/11/22 20:20 04/12/22 08:30 04/11/22 20:20 General: Alert, In no apparent distress, Oriented x3 Cardiovascular: Edema (bilateral lower extremity), Abnormal pulses (1/4 dp pulse bilateral, 0/4 pt pulse bilateral) Capillary refill: >2 Seconds Musculoskeletal: No clubbing, No swelling, No contractures, No erythema, No tenderness, No warmth Integumentary: No rashes, No breakdown, No significant lesion, No tenderness/swelling, No erythema, No warmth, No cyanosis, Other (Thickened hypertrophic nails bilateral hallux, elongated dystrophic nails 2-5 bilateral) Neurological: Sensation intact - Problems (1) Tinea unguium Current Visit: Yes Status: Acute (2) Onychogryphosis Current Visit: Yes Status: Acute (3) Generalized atherosclerosis Current Visit: Yes Status: Acute Conclusions/Impression: Nails debrided at bedside, patient tolerated well Physician Review: Patient Assessed, Agree with Above Assessment and Plan
[2022-04-12] MEDS: VALSARTAN 80 MG TAB PO SCH ×2 (10:16→20:00)
[2022-04-12] MEDS: ATOVAQUONE 1500 MG PO SCH (11:58)
[2022-04-12] MEDS: RIVAROXABAN 10 MG TABLET PO SCH (17:14)
[2022-04-12] MEDS: MONTELUKAST 10 MG TAB PO SCH (20:28)
[2022-04-12] MEDS: ACETAMINOPHEN 500 MG TAB PO PRN (20:28)
[2022-04-12] MEDS: DIPHENHYDRAMINE 25 MG TAB/CAP PO PRN (20:28)
[2022-04-12] MEDS: DOCUSATE NA/SENNA CONC 1 TAB PO PRN (20:29)
[2022-04-13] MEDS: carvediloL 12.5 MG TAB PO SCH ×2 (05:04→16:56)
[2022-04-13 05:43] LABS: Absolute Lymphocytes (CBC) 1.4 K/uL (0.7-4.9); Lymphocytes % 17.9 % (15.3-44.8); MCV 91.1 fL (80-100); MPV 8.3 fL (7.6-11.3); RBC Red Blood Cell Count 3.74 M/uL (3.86-4.86)
[2022-04-13 06:37] LABS: Potassium 4.6 mmol/L (3.5-5.1)
[2022-04-13] MEDS: MAGNESIUM OXIDE 400 MG TAB PO SCH (08:31)
[2022-04-13] MEDS: VALSARTAN 80 MG TAB PO SCH ×2 (08:31→20:59)
[2022-04-13] MEDS: predniSONE 10 MG TAB PO SCH ×2 (08:32→20:58)
[2022-04-13] MEDS: ASPIRIN EC 81 MG TAB PO SCH (08:32)
[2022-04-13] MEDS: FAMOTIDINE 20 MG TAB PO SCH ×2 (08:32→20:58)
[2022-04-13] MEDS: AMLODIPINE 5 MG TAB PO SCH ×2 (08:32→20:59)
[2022-04-13] MEDS: CRANBERRY FRUIT EXTRACT 200 MG CAP PO SCH ×2 (08:32→20:58)
[2022-04-13] MEDS: LACTOBACILLUS/ACIDOPHILUS TAB PO SCH (08:32)
[2022-04-13] MEDS: FLUOCINONIDE 0.05% CREAM 30GM TOP PRN (10:14)
[2022-04-13] MEDS: ATOVAQUONE 1500 MG PO SCH (12:00)
[2022-04-13] MEDS: RIVAROXABAN 10 MG TABLET PO SCH (16:56)
[2022-04-13] MEDS: ACETAMINOPHEN 500 MG TAB PO PRN (20:58)
[2022-04-13] MEDS: MONTELUKAST 10 MG TAB PO SCH (20:58)
[2022-04-13] MEDS: DIPHENHYDRAMINE 25 MG TAB/CAP PO PRN (21:00)
[2022-04-14] MEDS: carvediloL 12.5 MG TAB PO SCH ×2 (05:08→16:57)
[2022-04-14] MEDS: LACTOBACILLUS/ACIDOPHILUS TAB PO SCH (07:35)
[2022-04-14] MEDS: VALSARTAN 80 MG TAB PO SCH ×2 (07:35→20:19)
[2022-04-14] MEDS: CRANBERRY FRUIT EXTRACT 200 MG CAP PO SCH ×2 (07:40→20:19)
[2022-04-14] MEDS: predniSONE 10 MG TAB PO SCH ×2 (07:41→20:19)
[2022-04-14] MEDS: FAMOTIDINE 20 MG TAB PO SCH ×2 (07:41→20:19)
[2022-04-14] MEDS: ASPIRIN EC 81 MG TAB PO SCH (07:41)
[2022-04-14] MEDS: AMLODIPINE 5 MG TAB PO SCH ×2 (07:41→20:19)
[2022-04-14] MEDS: MAGNESIUM OXIDE 400 MG TAB PO SCH (10:38)
[2022-04-14] MEDS: ATOVAQUONE 1500 MG PO SCH (11:15)
[2022-04-14] MEDS: RIVAROXABAN 10 MG TABLET PO SCH (16:56)
[2022-04-14] MEDS: MONTELUKAST 10 MG TAB PO SCH (20:19)
[2022-04-14] MEDS: MELATONIN 3 MG TABLET PO PRN (20:21)
[2022-04-15] MEDS: carvediloL 12.5 MG TAB PO SCH ×2 (05:16→17:06)
[2022-04-15] MEDS: ACETAMINOPHEN 500 MG TAB PO PRN ×2 (07:12→14:28)
[2022-04-15] MEDS: predniSONE 10 MG TAB PO SCH (08:13)
[2022-04-15] MEDS: FAMOTIDINE 20 MG TAB PO SCH ×2 (08:13→20:27)
[2022-04-15] MEDS: LACTOBACILLUS/ACIDOPHILUS TAB PO SCH (08:14)
[2022-04-15] MEDS: MAGNESIUM OXIDE 400 MG TAB PO SCH (08:14)
[2022-04-15] MEDS: AMLODIPINE 5 MG TAB PO SCH ×2 (08:14→20:27)
[2022-04-15] MEDS: CRANBERRY FRUIT EXTRACT 200 MG CAP PO SCH ×2 (08:14→20:27)
[2022-04-15] MEDS: ASPIRIN EC 81 MG TAB PO SCH (08:14)
[2022-04-15] MEDS: VALSARTAN 80 MG TAB PO SCH ×2 (08:15→20:27)
[2022-04-15] MEDS: ATOVAQUONE 1500 MG PO SCH (12:00)
[2022-04-15] MEDS: FLUOCINONIDE 0.05% CREAM 30GM TOP PRN (14:57)
[2022-04-15] MEDS: RIVAROXABAN 10 MG TABLET PO SCH (17:06)
--- NOTE | 2022-04-15 18:37 | R.PN ---
PROGRESS NOTES ENCOUNTER DATE AND TIME: 04/15/2022 18:32 (CDT) NAME SABIHA BERRIOS DATE OF : 1965 DATE OF ADMISSION: 04/07/2022 12:59 (CDT) DeconditioningCHIEF COMPLAINT: Sepsis, debility SUBJECTIVE: Pt denied any Shortness of Breath. Pt denied any depression. CBC with diff is essentially normal. Potassium is normal at 4.6, glucose 170. Self-propelled wheelchair 500' with independence. Ambulated 8' x 4 in the parallel bars. VITAL SIGNS Temperature: 98.6 F SBP/DBP: 153/65 Pulse: 80 Resp: 16 MEDICATION ALLERGIES: No Known Drug Allergies (NKDA) ENVIRONMENTAL ALLERGIES: - Substance Allergies None Known - Other Allergies None Known NURSING: - Shower allowing shower ACTIVITIES OOB only with supervision THERAPIES: - Dietary and Nutrition Adequate Nutrition. Nutritional Education. Nutritional Supplements. - Occupational Therapy Cognitive Retraining. Patient needs Occupational Therapy for a daily minimum of 1.5 hours at least 5 out of 7 days, to improve Activities of Daily Living, including: Eating, Grooming, Bathing, Dressing, Toileting, Toilet Transfers, Community Reintegration, Higher functional activities, Adaptive Equipme nt, Splinting, Household Tasks, and Other activities as determined. Visual Perceptual Training. - Physical Therapy Patient needs Physical Therapy for a daily minimum of 1.5 hours at least 5 out of 7 days, to improve: Mobility, Strengthening, Transfers, Stretching, ROM, Endurance, Ability to manage stairs, Gait, and Balance. PHYSICAL EXAM - Gen Alert and awake Lying in bed No apparent distress Oriented to: person, time, and place - Skin No skin breakdown. No abnormalities - Eyes No abnormalities - ENMT No abnormalities - Neck No abnormalities - CVS RRR - Chest No abnormalities - Abd Obese, soft, nontender - GI Non distended Deferred - No abnormalities - Ext Mild bilateral lower extremity edema. - MSK 4+/5 weakness in both lower extremities. - Neuro No focal deficits ASSESSMENT: Pt. is a 57 yo female of unknown race.On 03/22/2022 she was admitted to [facility] with di agnosis Deconditioning.Her impairment category is Debility 16 - Debility (16).Pre-morbidly, Pt. was independent/mod-I in Locomotion and Self-Care; and she had good Safety Awareness, Balance, Transfers Control, and Self-Care.Currently, she has deficits of Locomotion, Safety Awareness, Balance, Transfer s Control, Self-Care, and Endurance.Pt. is now referred to [facility] for acut e in-patient rehabilitation in order to maximize patient's functional independence in activities of d aily living, strength, ROM, and mobility.- Rehab Goal Patient has realistic goal of being discharged at assistance level 6-Sixto to reside at Home with Fam aurelio/Relatives. MDM/PLAN: - Physical Therapy Gait dysfunction - to improve, our physical therapists will perform initial evaluation of pt's statu s upon admission and devise an individualized program for Gait Training, and Wheel Chair mobility Inability to transfer - to improve, our physical therapists will perform initial evaluation of pt's status upon admission and devise an individualized program for Bed mobility Need for home safety evaluation - to improve, our physical therapists will perform initial evaluatio n of pt's status upon admission and devise an individualized program for Home Evaluation Need in caregiver upon discharge - to improve, our physical therapists will perform initial evaluati on of pt's status upon admission and devise an individualized program for Caregiver Training New precaution - to improve, our physical therapists will perform initial evaluation of pt's status upon admission and devise an individualized program for Patient precaution education Edema - to improve, our physical therapists will perform initial evaluation of pt's status upon admi ssion and devise an individualized program for Elevation Training, and Lymphedema Therapy Poor balance - to improve, our physical therapists will perform initial evaluation of pt's status up on admission and devise an individualized program for Balance Training Poor endurance - to improve, our physical therapists will perform initial evaluation of pt's status upon admission and devise an individualized program for Endurance Training Weakness - to improve, our physical therapists will perform initial evaluation of pt's status upon a dmission and devise an individualized program for Aquatic Therapy, Neuromuscular Reeducation, and Str engthening Achieving independence - to improve, our physical therapists will perform initial evaluation of pt's status upon admission and devise an individualized program for Community Reintegration Activities - Occupational Therapy ADL deficits - to improve, our occupation therapists will perform initial evaluation of pt's status upon admission and devise an individualized program for Bathing, Bed mobility, Community Reintegratio n, Cooking, Dressing, Eating, Fine Motor Skills, Grooming, Homemaking, Kitchen Mobility, Laundry, Pat ient Education, Safety Awareness, Splinting - Positioning, Transfers(Toilet, Tub, Shower), and Wheel Chair Management Need for rn progressive care unit - to improve, our occupation therapists will perform initial evaluation of pt's status upon admission and devise an individualized program for Caregiver Training Weakness - to improve, our occupation therapists will perform initial evaluation of pt's status upon admission and devise an individualized program for Aquatic Therapy, Balance, Endurance, UE ROM, and UE strengthening - Other See attached MAR (Medication Administration Record) - Diet Type Continue Regular - Diet - Liquid Texture Continue Regular - Tube Feed Continue N/A - Diet - Solid Texture Continue Regular - Shower allowing shower FUNCTIONAL STATUS: UPDATED AT WEEKLY TEAM CONFERENCE - Bladder Same accident frequency: 7-Ind - No accidents in the past 7 days - Bowel Same accident frequency: 7-Ind - No accidents in the past 7 days - Walking Same score based on distance walked: 0(N/A) - Wheelchair Same score based on distance traveled: 0(N/A) FUNCTIONAL STATUS: - Self-Care A. Eating Ind B. Grooming Sixto C. Bathing modA D. Dressing - Upper Buddy E. Dressing - Lower modA F. Toileting sup - Sphincter Control G. Bladder control Sixto H. Bowel control Sixto - Transfers Control I. Bed/Chair/Wheelchair modA J. Toilet modA K. Tub/Shower modA - Locomotion L. Walk/Wheelchair (B) modA M. Stairs Buddy - Communication N. Comprehension (B) Sixto O. Expression (B) Sixto - Social Cognition P. Social Interaction Sixto Q. Problem Solving Sixto R. Memory Sixto - Endurance Fair - Balance Poor - Safety Awareness Good QI SCORES: - Self-Care A. Eating 04-Supervision or touching assistance B. Oral hygiene 04-Supervision or touching assistance C. Toileting hygiene 02-Substantial/maximal assistance E. Shower/bathe self 02-Substantial/maximal assistance F. Upper body dressing 03-Partial/moderate assistance G. Lower body dressing 02-Substantial/maximal assistance H. Putting on/taking off footwear 02-Substantial/maximal assistance - Mobility A. Roll left and right 04-Supervision or touching assistance B. Sit to lying 04-Supervision or touching assistance C. Lying to sitting on side of bed 04-Supervision or touching assistance D. Sit to stand 02-Substantial/maximal assistance E. Chair/vct-jl-[id number] transfer 02-Substantial/maximal assistance F. Toilet transfer 02-Substantial/maximal assistance G. Car transfer 88-Not attempted due to medical condition or safety concerns I. Walk 10 feet 88-Not attempted due to medical condition or safety concerns J. Walk 50 feet with two turns 88-Not attempted due to medical condition or safety concerns K. Walk 150 feet 88-Not attempted due to medical condition or safety concerns L. Walking 10 feet on uneven surfaces 88-Not attempted due to medical condition or safety concerns M. 1 step (curb) 88-Not attempted due to medical condition or safety concerns N. 4 steps 88-Not attempted due to medical condition or safety concerns O. 12 steps 88-Not attempted due to medical condition or safety concerns P. Picking up object 88-Not attempted due to medical condition or safety concerns R. Wheel 50 feet with two turns 09-Not applicable S. Wheel 150 feet 09-Not applicable - Bladder and Bowel Bladder continence 0-Always continent Bowel continence 0-Always continent - Endurance Poor - Balance Poor - Safety Awareness Fair [facility] DEFICITS: Self-Care, Mobility, Endurance, Balance, and Safety Awareness SIGNATURE PANEL: (CDT)
[2022-04-15] MEDS: MONTELUKAST 10 MG TAB PO SCH (20:27)
[2022-04-15] MEDS: MELATONIN 3 MG TABLET PO PRN (20:27)
[2022-04-16] MEDS: carvediloL 12.5 MG TAB PO SCH ×2 (05:43→17:14)
[2022-04-16] MEDS: predniSONE 10 MG TAB PO SCH (05:44)
[2022-04-16] MEDS: FAMOTIDINE 20 MG TAB PO SCH ×2 (08:06→20:01)
[2022-04-16] MEDS: VALSARTAN 80 MG TAB PO SCH ×2 (08:06→20:01)
[2022-04-16] MEDS: CRANBERRY FRUIT EXTRACT 200 MG CAP PO SCH ×2 (08:07→20:01)
[2022-04-16] MEDS: AMLODIPINE 5 MG TAB PO SCH ×2 (08:07→20:02)
[2022-04-16] MEDS: LACTOBACILLUS/ACIDOPHILUS TAB PO SCH (08:07)
[2022-04-16] MEDS: MAGNESIUM OXIDE 400 MG TAB PO SCH (08:07)
[2022-04-16] MEDS: ASPIRIN EC 81 MG TAB PO SCH (08:07)
[2022-04-16] MEDS: ATOVAQUONE 1500 MG PO SCH (12:00)
[2022-04-16] MEDS: FLUOCINONIDE 0.05% CREAM 30GM TOP PRN ×2 (15:19→20:02)
[2022-04-16] MEDS: RIVAROXABAN 10 MG TABLET PO SCH (17:14)
--- NOTE | 2022-04-16 19:04 | R.PN ---
PROGRESS NOTES ENCOUNTER DATE AND TIME: 04/16/2022 19:01 (CDT) NAME SABIHA BERRIOS DATE OF : 1965 DATE OF ADMISSION: 04/07/2022 12:59 (CDT) DeconditioningCHIEF COMPLAINT: Sepsis, debility SUBJECTIVE: Pt denied any Shortness of Breath. Pt denied any depression. CBC with diff is essentially normal. Potassium is normal at 4.6, glucose 170. Self-propelled wheelchair 500' with independence. Ambulated 8' x 4 in the parallel bars. Ambulated 5 ' with rolling walker and minimum assistance. VITAL SIGNS Temperature: 98.0 F SBP/DBP: 139/59 Pulse: 55 Resp: 16 MEDICATION ALLERGIES: No Known Drug Allergies (NKDA) ENVIRONMENTAL ALLERGIES: - Substance Allergies None Known - Other Allergies None Known NURSING: - Shower allowing shower ACTIVITIES OOB only with supervision THERAPIES: - Dietary and Nutrition Adequate Nutrition. Nutritional Education. Nutritional Supplements. - Occupational Therapy Cognitive Retraining. Patient needs Occupational Therapy for a daily minimum of 1.5 hours at least 5 out of 7 days, to improve Activities of Daily Living, including: Eating, Grooming, Bathing, Dressing, Toileting, Toilet Transfers, Community Reintegration, Higher functional activities, Adaptive Equipme nt, Splinting, Household Tasks, and Other activities as determined. Visual Perceptual Training. - Physical Therapy Patient needs Physical Therapy for a daily minimum of 1.5 hours at least 5 out of 7 days, to improve: Mobility, Strengthening, Transfers, Stretching, ROM, Endurance, Ability to manage stairs, Gait, and Balance. PHYSICAL EXAM - Gen Alert and awake Lying in bed No apparent distress Oriented to: person, time, and place - Skin No skin breakdown. No abnormalities - Eyes No abnormalities - ENMT No abnormalities - Neck No abnormalities - CVS RRR - Chest No abnormalities - Abd Obese, soft, nontender - GI Non distended Deferred - No abnormalities - Ext Mild bilateral lower extremity edema. - MSK 4+/5 weakness in both lower extremities. - Neuro No focal deficits ASSESSMENT: Pt. is a 57 yo female of unknown race.On 03/22/2022 she was admitted to [facility] with di agnosis Deconditioning.Her impairment category is Debility 16 - Debility (16).Pre-morbidly, Pt. was independent/mod-I in Locomotion and Self-Care; and she had good Safety Awareness, Balance, Transfers Control, and Self-Care.Currently, she has deficits of Locomotion, Safety Awareness, Balance, Transfer s Control, Self-Care, and Endurance.Pt. is now referred to [facility] for acut e in-patient rehabilitation in order to maximize patient's functional independence in activities of d aily living, strength, ROM, and mobility.- Rehab Goal Patient has realistic goal of being discharged at assistance level 6-Sixto to reside at Home with Fam aurelio/Relatives. MDM/PLAN: - Physical Therapy Gait dysfunction - to improve, our physical therapists will perform initial evaluation of pt's statu s upon admission and devise an individualized program for Gait Training, and Wheel Chair mobility Inability to transfer - to improve, our physical therapists will perform initial evaluation of pt's status upon admission and devise an individualized program for Bed mobility Need for home safety evaluation - to improve, our physical therapists will perform initial evaluatio n of pt's status upon admission and devise an individualized program for Home Evaluation Need in caregiver upon discharge - to improve, our physical therapists will perform initial evaluati on of pt's status upon admission and devise an individualized program for Caregiver Training New precaution - to improve, our physical therapists will perform initial evaluation of pt's status upon admission and devise an individualized program for Patient precaution education Edema - to improve, our physical therapists will perform initial evaluation of pt's status upon admi ssion and devise an individualized program for Elevation Training, and Lymphedema Therapy Poor balance - to improve, our physical therapists will perform initial evaluation of pt's status up on admission and devise an individualized program for Balance Training Poor endurance - to improve, our physical therapists will perform initial evaluation of pt's status upon admission and devise an individualized program for Endurance Training Weakness - to improve, our physical therapists will perform initial evaluation of pt's status upon a dmission and devise an individualized program for Aquatic Therapy, Neuromuscular Reeducation, and Str engthening Achieving independence - to improve, our physical therapists will perform initial evaluation of pt's status upon admission and devise an individualized program for Community Reintegration Activities - Occupational Therapy ADL deficits - to improve, our occupation therapists will perform initial evaluation of pt's status upon admission and devise an individualized program for Bathing, Bed mobility, Community Reintegratio n, Cooking, Dressing, Eating, Fine Motor Skills, Grooming, Homemaking, Kitchen Mobility, Laundry, Pat ient Education, Safety Awareness, Splinting - Positioning, Transfers(Toilet, Tub, Shower), and Wheel Chair Management Need for manager medicare - to improve, our occupation therapists will perform initial evaluation of pt's status upon admission and devise an individualized program for Caregiver Training Weakness - to improve, our occupation therapists will perform initial evaluation of pt's status upon admission and devise an individualized program for Aquatic Therapy, Balance, Endurance, UE ROM, and UE strengthening - Other See attached MAR (Medication Administration Record) - Diet Type Continue Regular - Diet - Liquid Texture Continue Regular - Tube Feed Continue N/A - Diet - Solid Texture Continue Regular - Shower allowing shower FUNCTIONAL STATUS: UPDATED AT WEEKLY TEAM CONFERENCE - Bladder Same accident frequency: 7-Ind - No accidents in the past 7 days - Bowel Same accident frequency: 7-Ind - No accidents in the past 7 days - Walking Same score based on distance walked: 0(N/A) - Wheelchair Same score based on distance traveled: 0(N/A) FUNCTIONAL STATUS: - Self-Care A. Eating Ind B. Grooming Sixto C. Bathing modA D. Dressing - Upper Buddy E. Dressing - Lower modA F. Toileting sup - Sphincter Control G. Bladder control Sixto H. Bowel control Sixto - Transfers Control I. Bed/Chair/Wheelchair modA J. Toilet modA K. Tub/Shower modA - Locomotion L. Walk/Wheelchair (B) modA M. Stairs Buddy - Communication N. Comprehension (B) Sixto O. Expression (B) Sixto - Social Cognition P. Social Interaction Sixto Q. Problem Solving Sixto R. Memory Sixto - Endurance Fair - Balance Poor - Safety Awareness Good QI SCORES: - Self-Care A. Eating 04-Supervision or touching assistance B. Oral hygiene 04-Supervision or touching assistance C. Toileting hygiene 02-Substantial/maximal assistance E. Shower/bathe self 02-Substantial/maximal assistance F. Upper body dressing 03-Partial/moderate assistance G. Lower body dressing 02-Substantial/maximal assistance H. Putting on/taking off footwear 02-Substantial/maximal assistance - Mobility A. Roll left and right 04-Supervision or touching assistance B. Sit to lying 04-Supervision or touching assistance C. Lying to sitting on side of bed 04-Supervision or touching assistance D. Sit to stand 02-Substantial/maximal assistance E. Chair/elh-nn-zlgie transfer 02-Substantial/maximal assistance F. Toilet transfer 02-Substantial/maximal assistance G. Car transfer 88-Not attempted due to medical condition or safety concerns I. Walk 10 feet 88-Not attempted due to medical condition or safety concerns J. Walk 50 feet with two turns 88-Not attempted due to medical condition or safety concerns K. Walk 150 feet 88-Not attempted due to medical condition or safety concerns L. Walking 10 feet on uneven surfaces 88-Not attempted due to medical condition or safety concerns M. 1 step (curb) 88-Not attempted due to medical condition or safety concerns N. 4 steps 88-Not attempted due to medical condition or safety concerns O. 12 steps 88-Not attempted due to medical condition or safety concerns P. Picking up object 88-Not attempted due to medical condition or safety concerns R. Wheel 50 feet with two turns 09-Not applicable S. Wheel 150 feet 09-Not applicable - Bladder and Bowel Bladder continence 0-Always continent Bowel continence 0-Always continent - Endurance Poor - Balance Poor - Safety Awareness Fair [facility]RENT [facility]. DEFICITS: Self-Care, Mobility, Endurance, Balance, and Safety Awareness SIGNATURE PANEL: (CDT)
[2022-04-16] MEDS: MELATONIN 3 MG TABLET PO PRN (20:01)
[2022-04-16] MEDS: ACETAMINOPHEN 500 MG TAB PO PRN (20:01)
[2022-04-16] MEDS: MONTELUKAST 10 MG TAB PO SCH (20:02)
[2022-04-17 04:29] LABS: Absolute Lymphocytes (CBC) 2.7 K/uL (0.7-4.9); Hematocrit 33.7 % (36.0-45.0); Lymphocytes % 26.1 % (15.3-44.8); MCV 89.9 fL (80-100); MPV 7.4 fL (7.6-11.3); RBC Red Blood Cell Count 3.75 M/uL (3.86-4.86)
[2022-04-17 04:49] LABS: Albumin 2.7 g/dL (3.4-5.0); Magnesium 2.2 mg/dL (1.8-2.4); Potassium 4.3 mmol/L (3.5-5.1); Prealbumin 35.7 mg/dL (20-40)
[2022-04-17 04:58] LABS: Blood Morphology Comment NOT SEEN (NOT SEEN); Platelet Estimate ADEQ
[2022-04-17] MEDS: carvediloL 12.5 MG TAB PO SCH ×2 (05:23→17:14)
[2022-04-17] MEDS: ACETAMINOPHEN 500 MG TAB PO PRN ×2 (07:18→20:13)
[2022-04-17] MEDS: ASPIRIN EC 81 MG TAB PO SCH (07:19)
[2022-04-17] MEDS: FAMOTIDINE 20 MG TAB PO SCH ×2 (07:19→20:13)
[2022-04-17] MEDS: LACTOBACILLUS/ACIDOPHILUS TAB PO SCH (07:22)
[2022-04-17] MEDS: CRANBERRY FRUIT EXTRACT 200 MG CAP PO SCH ×2 (07:22→20:13)
[2022-04-17] MEDS: MAGNESIUM OXIDE 400 MG TAB PO SCH (07:22)
[2022-04-17] MEDS: predniSONE 10 MG TAB PO SCH (07:22)
[2022-04-17] MEDS: AMLODIPINE 5 MG TAB PO SCH ×2 (08:00→20:14)
[2022-04-17] MEDS: VALSARTAN 80 MG TAB PO SCH ×2 (09:55→20:14)
[2022-04-17] MEDS: ATOVAQUONE 1500 MG PO SCH (12:00)
[2022-04-17] MEDS: RIVAROXABAN 10 MG TABLET PO SCH (17:14)
--- NOTE | 2022-04-17 18:35 | R.PN ---
PROGRESS NOTES ENCOUNTER DATE AND TIME: 04/17/2022 18:30 (CDT) NAME SABIHA BERRIOS DATE OF : 1965 DATE OF ADMISSION: 04/07/2022 12:59 (CDT) DeconditioningCHIEF COMPLAINT: Sepsis, debility SUBJECTIVE: Pt denied any Shortness of Breath. Pt denied any depression. CBC with diff is unremarkable. Potassium is normal at 4.6, glucose 95 to 170. Self-propelled wheelchair 500' with independence. VITAL SIGNS Temperature: 97.2 F SBP/DBP: 151/65 Pulse: 57 Resp: 16 MEDICATION ALLERGIES: No Known Drug Allergies (NKDA) ENVIRONMENTAL ALLERGIES: - Substance Allergies None Known - Other Allergies None Known NURSING: - Shower allowing shower ACTIVITIES OOB only with supervision THERAPIES: - Dietary and Nutrition Adequate Nutrition. Nutritional Education. Nutritional Supplements. - Occupational Therapy Cognitive Retraining. Patient needs Occupational Therapy for a daily minimum of 1.5 hours at least 5 out of 7 days, to improve Activities of Daily Living, including: Eating, Grooming, Bathing, Dressing, Toileting, Toilet Transfers, Community Reintegration, Higher functional activities, Adaptive Equipme nt, Splinting, Household Tasks, and Other activities as determined. Visual Perceptual Training. - Physical Therapy Patient needs Physical Therapy for a daily minimum of 1.5 hours at least 5 out of 7 days, to improve: Mobility, Strengthening, Transfers, Stretching, ROM, Endurance, Ability to manage stairs, Gait, and Balance. PHYSICAL EXAM - Gen Alert and awake Lying in bed No apparent distress Oriented to: person, time, and place - Skin No skin breakdown. No abnormalities - Eyes No abnormalities - ENMT No abnormalities - Neck No abnormalities - CVS RRR - Chest No abnormalities - Abd Obese, soft, nontender - GI Non distended Deferred - No abnormalities - Ext Mild bilateral lower extremity edema. - MSK 4+/5 weakness in both lower extremities. - Neuro No focal deficits ASSESSMENT: Pt. is a 57 yo female of unknown race.On 03/22/2022 she was admitted to [facility] with di agnosis Deconditioning.Her impairment category is Debility 16 - Debility (16).Pre-morbidly, Pt. was independent/mod-I in Locomotion and Self-Care; and she had good Safety Awareness, Balance, Transfers Control, and Self-Care.Currently, she has deficits of Locomotion, Safety Awareness, Balance, Transfer s Control, Self-Care, and Endurance.Pt. is now referred to [facility] for acut e in-patient rehabilitation in order to maximize patient's functional independence in activities of d aily living, strength, ROM, and mobility.- Rehab Goal Patient has realistic goal of being discharged at assistance level 6-Sixto to reside at Home with Fam aurelio/Relatives. MDM/PLAN: - Physical Therapy Gait dysfunction - to improve, our physical therapists will perform initial evaluation of pt's statu s upon admission and devise an individualized program for Gait Training, and Wheel Chair mobility Inability to transfer - to improve, our physical therapists will perform initial evaluation of pt's status upon admission and devise an individualized program for Bed mobility Need for home safety evaluation - to improve, our physical therapists will perform initial evaluatio n of pt's status upon admission and devise an individualized program for Home Evaluation Need in caregiver upon discharge - to improve, our physical therapists will perform initial evaluati on of pt's status upon admission and devise an individualized program for Caregiver Training New precaution - to improve, our physical therapists will perform initial evaluation of pt's status upon admission and devise an individualized program for Patient precaution education Edema - to improve, our physical therapists will perform initial evaluation of pt's status upon admi ssion and devise an individualized program for Elevation Training, and Lymphedema Therapy Poor balance - to improve, our physical therapists will perform initial evaluation of pt's status up on admission and devise an individualized program for Balance Training Poor endurance - to improve, our physical therapists will perform initial evaluation of pt's status upon admission and devise an individualized program for Endurance Training Weakness - to improve, our physical therapists will perform initial evaluation of pt's status upon a dmission and devise an individualized program for Aquatic Therapy, Neuromuscular Reeducation, and Str engthening Achieving independence - to improve, our physical therapists will perform initial evaluation of pt's status upon admission and devise an individualized program for Community Reintegration Activities - Occupational Therapy ADL deficits - to improve, our occupation therapists will perform initial evaluation of pt's status upon admission and devise an individualized program for Bathing, Bed mobility, Community Reintegratio n, Cooking, Dressing, Eating, Fine Motor Skills, Grooming, Homemaking, Kitchen Mobility, Laundry, Pat ient Education, Safety Awareness, Splinting - Positioning, Transfers(Toilet, Tub, Shower), and Wheel Chair Management Need for long term care pharmacist - to improve, our occupation therapists will perform initial evaluation of pt's status upon admission and devise an individualized program for Caregiver Training Weakness - to improve, our occupation therapists will perform initial evaluation of pt's status upon admission and devise an individualized program for Aquatic Therapy, Balance, Endurance, UE ROM, and UE strengthening - Other See attached MAR (Medication Administration Record) - Diet Type Continue Regular - Diet - Liquid Texture Continue Regular - Tube Feed Continue N/A - Diet - Solid Texture Continue Regular - Shower allowing shower FUNCTIONAL STATUS: UPDATED AT WEEKLY TEAM CONFERENCE - Bladder Same accident frequency: 7-Ind - No accidents in the past 7 days - Bowel Same accident frequency: 7-Ind - No accidents in the past 7 days - Walking Same score based on distance walked: 0(N/A) - Wheelchair Same score based on distance traveled: 0(N/A) FUNCTIONAL STATUS: - Self-Care A. Eating Ind B. Grooming Sixto C. Bathing modA D. Dressing - Upper Buddy E. Dressing - Lower modA F. Toileting sup - Sphincter Control G. Bladder control Sixto H. Bowel control Sixto - Transfers Control I. Bed/Chair/Wheelchair modA J. Toilet modA K. Tub/Shower modA - Locomotion L. Walk/Wheelchair (B) modA M. Stairs Buddy - Communication N. Comprehension (B) Sixto O. Expression (B) Sixto - Social Cognition P. Social Interaction Sixto Q. Problem Solving Sixto R. Memory Sixto - Endurance Fair - Balance Poor - Safety Awareness Good QI SCORES: - Self-Care A. Eating 04-Supervision or touching assistance B. Oral hygiene 04-Supervision or touching assistance C. Toileting hygiene 02-Substantial/maximal assistance E. Shower/bathe self 02-Substantial/maximal assistance F. Upper body dressing 03-Partial/moderate assistance G. Lower body dressing 02-Substantial/maximal assistance H. Putting on/taking off footwear 02-Substantial/maximal assistance - Mobility A. Roll left and right 04-Supervision or touching assistance B. Sit to lying 04-Supervision or touching assistance C. Lying to sitting on side of bed 04-Supervision or touching assistance D. Sit to stand 02-Substantial/maximal assistance E. Chair/[id number] transfer 02-Substantial/maximal assistance F. Toilet transfer 02-Substantial/maximal assistance G. Car transfer 88-Not attempted due to medical condition or safety concerns I. Walk 10 feet 88-Not attempted due to medical condition or safety concerns J. Walk 50 feet with two turns 88-Not attempted due to medical condition or safety concerns K. Walk 150 feet 88-Not attempted due to medical condition or safety concerns L. Walking 10 feet on uneven surfaces 88-Not attempted due to medical condition or safety concerns M. 1 step (curb) 88-Not attempted due to medical condition or safety concerns N. 4 steps 88-Not attempted due to medical condition or safety concerns O. 12 steps 88-Not attempted due to medical condition or safety concerns P. Picking up object 88-Not attempted due to medical condition or safety concerns R. Wheel 50 feet with two turns 09-Not applicable S. Wheel 150 feet 09-Not applicable - Bladder and Bowel Bladder continence 0-Always continent Bowel continence 0-Always continent - Endurance Poor - Balance Poor - Safety Awareness Fair [facility]RENT [facility] DEFICITS: Self-Care, Mobility, Endurance, Balance, and Safety Awareness SIGNATURE PANEL: (CDT)
[2022-04-17] MEDS: MELATONIN 3 MG TABLET PO PRN (20:13)
[2022-04-17] MEDS: DIPHENHYDRAMINE 25 MG TAB/CAP PO PRN (20:13)
[2022-04-17] MEDS: MONTELUKAST 10 MG TAB PO SCH (20:13)
[2022-04-18] MEDS: carvediloL 12.5 MG TAB PO SCH ×2 (05:13→17:08)
[2022-04-18] MEDS: ASPIRIN EC 81 MG TAB PO SCH (07:06)
[2022-04-18] MEDS: predniSONE 10 MG TAB PO SCH (07:06)
[2022-04-18] MEDS: ACETAMINOPHEN 500 MG TAB PO PRN ×2 (07:06→21:19)
[2022-04-18] MEDS: FAMOTIDINE 20 MG TAB PO SCH ×2 (07:06→20:06)
[2022-04-18] MEDS: AMLODIPINE 5 MG TAB PO SCH ×2 (08:03→20:06)
[2022-04-18] MEDS: CRANBERRY FRUIT EXTRACT 200 MG CAP PO SCH ×2 (08:03→20:05)
[2022-04-18] MEDS: LACTOBACILLUS/ACIDOPHILUS TAB PO SCH (08:04)
[2022-04-18] MEDS: MAGNESIUM OXIDE 400 MG TAB PO SCH (08:13)
--- NOTE | 2022-04-18 10:07 | P.RH.PN ---
Estimated Length of Stay: 13 Expected Discharge Date: 04/21/22 Discharge Disposition Plan: Home Family Support: Yes Skilled Nursing Goal: Mobility, Transfers, Self Care Vital Signs: Last Vital Signs Temp 97.4 F 04/18/22 07:45 Pulse 59 04/18/22 08:03 Resp 18 04/18/22 07:45 BP 128/57 L 04/18/22 08:03 Pulse Ox 99 04/18/22 07:45 Laboratory: Laboratory Last Values WBC 10.20 K/uL (4.3-10.9) D 04/17/22 04:16 RBC 3.75 M/uL (3.86-4.86) L 04/17/22 04:16 Hgb 11.8 g/dL (12.0-15.0) L 04/17/22 04:16 Hct 33.7 % (36.0-45.0) L 04/17/22 04:16 MCV 89.9 fL (80-100) 04/17/22 04:16 MCH 31.4 pg (27.0-35.0) 04/17/22 04:16 MCHC 34.9 g/dL (32.0-36.0) 04/17/22 04:16 RDW 15.5 % (12.1-15.2) H 04/17/22 04:16 Plt Count 217 K/uL (152-406) 04/17/22 04:16 MPV 7.4 fL (7.6-11.3) L D 04/17/22 04:16 Neutrophils % 39.9 % (41.7-73.7) L 04/17/22 04:16 Lymphocytes % 26.1 % (15.3-44.8) 04/17/22 04:16 Monocytes % 5.4 % (3.3-12.3) 04/17/22 04:16 Eosinophils % 27.3 % (0-4.4) H 04/17/22 04:16 Basophils % 1.3 % (0-1.3) 04/17/22 04:16 Absolute Neutrophils 4.1 K/uL (1.8-8.0) 04/17/22 04:16 Segmented Neutrophils 44 % (40-80) 04/17/22 04:16 Band Neutrophils 1 % (0-1) 04/17/22 04:16 Absolute Lymphocytes 2.7 K/uL (0.7-4.9) 04/17/22 04:16 Lymphocytes 27 % (15-42) 04/17/22 04:16 Monocytes 5 % (0-10) 04/17/22 04:16 Absolute Monocytes 0.6 K/uL (0.1-1.3) 04/17/22 04:16 Eosinophils 23 % (0-3) H 04/17/22 04:16 Absolute Eosinophils 2.8 K/uL (0-0.5) H 04/17/22 04:16 Absolute Basophils 0.1 K/uL (0-0.5) 04/17/22 04:16 Platelet Estimate Adeq 04/17/22 04:16 Morphology Comment Not seen (NOT SEEN) 04/17/22 04:16 Sodium 139 mmol/L (136-145) 04/17/22 04:16 Potassium 4.3 mmol/L (3.5-5.1) 04/17/22 04:16 Chloride 108 mmol/L (98-107) H 04/17/22 04:16 Carbon Dioxide 27 mmol/L (21-32) 04/17/22 04:16 Anion Gap 8.3 mEq/L (5.0-15.0) 04/17/22 04:16 BUN 35 mg/dL (7-18) H 04/17/22 04:16 Creatinine 0.98 mg/dL (0.55-1.3) 04/17/22 04:16 Est GFR (CKD-EPI) 67 ml/min (=/>90) L 04/17/22 04:16 Glucose 95 mg/dL (74-106) 04/17/22 04:16 Calcium 8.6 mg/dL (8.5-10.1) 04/17/22 04:16 Magnesium 2.2 mg/dL (1.8-2.4) 04/17/22 04:16 Albumin 2.7 g/dL (3.4-5.0) L 04/17/22 04:16 Prealbumin 35.7 mg/dL (20-40) 04/17/22 04:16 Urine Color Yellow (Yellow) 04/07/22 21:01 Urine Clarity Cloudy (Clear) 04/07/22 21:01 Urine pH 5.5 (5.0-7.0) 04/07/22 21:01 Ur Specific Pinson 1.020 (1.005-1.030) 04/07/22 21:01 Glucose (UA)(Auto) Negative (Negative) 04/07/22 21:01 Urine Ketones Negative (Negative) 04/07/22 21:01 Urine Blood 3+ (Negative) H 04/07/22 21:01 Urine Nitrite Negative (Negative) 04/07/22 21:01 Urine Bilirubin Negative (Negative) 04/07/22 21:01 Urine Urobilinogen 0.2 mg/dL (0.2-1.0) 04/07/22 21:01 Ur Leukocyte Esterase Negative (Negative) 04/07/22 21:01 Urine RBC 11-20 /HPF (None Seen) H 04/07/22 21:01 Urine Red Cell Clumps Cancelled 04/07/22 20:40 Urine WBC <5 /HPF (<5) 04/07/22 21:01 Urine WBC Clumps Cancelled 04/07/22 20:40 Ur Squamous Epith Cells <5 /HPF (None Seen) 04/07/22 21:01 U Non-Squamous Epi Cells Cancelled 04/07/22 20:40 Ur Transition Epith Cell Cancelled 04/07/22 20:40 Ur Renal Epithelial Cell Cancelled 04/07/22 20:40 Calcium Carbonate Cryst Cancelled 04/07/22 20:40 Calcium Oxalate Crystal Cancelled 04/07/22 20:40 Leucine Crystals Cancelled 04/07/22 20:40 Cystine Crystals Cancelled 04/07/22 20:40 Uric Acid Crystals Cancelled 04/07/22 20:40 Triple Phos Crystals Cancelled 04/07/22 20:40 Tyrosine Crystals Cancelled 04/07/22 20:40 Unidentified Crystals Cancelled 04/07/22 20:40 Amorphous Crystals Cancelled 04/07/22 20:40 Urine Bacteria >50 /HPF (<20) H 04/07/22 21:01 Hyaline Casts Cancelled 04/07/22 20:40 Granular Casts Cancelled 04/07/22 20:40 Waxy Casts Cancelled 04/07/22 20:40 RBC Casts Cancelled 04/07/22 20:40 WBC Casts Cancelled 04/07/22 20:40 Urine Mucus Cancelled 08/29/22 20:40 Urine Trichomonas Cancelled 04/07/22 20:40 Ur Yeast w Hyphae Cancelled 04/07/22 20:40 Urine Yeast (Budding) Cancelled 04/07/22 20:40 Urine Sperm Cancelled 04/07/22 20:40 Ur Oval Fat Bodies Cancelled 04/07/22 20:40 Urine Total Protein 1+ (Negative) H 04/07/22 21:01 Urine Ascorbic Acid Cancelled 04/07/22 20:40 Urine Fat Cancelled 04/07/22 20:40 SARS-CoV-2 Rap RNA(RT-PCR) Negative (NEGATIVE) 04/14/22 05:37 Weight: 291 lb Within Defined Parameters: Yes Wound Present: Yes Closed Surgical Incision Present: No Negative Pressure Wound Therapy Present: No Physician Update: Labs were reviewed and are stable. Ambulating 8' x 4 in parallel bars. Mod I with bed mobility. Sit to stand and transfers with SBA. WC 250' with independence. Comment: noted berny lower ext discoloration and scaly skin Functional Improvement: Patient was fairly newly admitted, however demonstrates good work ethic, and desire to improve. Patient continues to be fearful of "falling". 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 Please see the Rehabilitation Signature page for all necessary signatures.
[2022-04-18] MEDS: ATOVAQUONE 1500 MG PO SCH (12:00)
[2022-04-18] MEDS: VALSARTAN 80 MG TAB PO SCH ×2 (12:10→20:05)
[2022-04-18] MEDS: RIVAROXABAN 10 MG TABLET PO SCH (17:08)
[2022-04-18] MEDS: MONTELUKAST 10 MG TAB PO SCH (20:06)
[2022-04-18] MEDS: MELATONIN 3 MG TABLET PO PRN (20:07)
[2022-04-18] MEDS: DOCUSATE NA/SENNA CONC 1 TAB PO PRN (20:08)
[2022-04-19] MEDS: carvediloL 12.5 MG TAB PO SCH (05:15)
[2022-04-19 08:04] VITALS: BP 120/56; TEMP 98.2
[2022-04-19] MEDS: CRANBERRY FRUIT EXTRACT 200 MG CAP PO SCH (08:29)
[2022-04-19] MEDS: FAMOTIDINE 20 MG TAB PO SCH (08:29)
[2022-04-19] MEDS: predniSONE 10 MG TAB PO SCH (08:29)
[2022-04-19] MEDS: LACTOBACILLUS/ACIDOPHILUS TAB PO SCH (08:29)
[2022-04-19] MEDS: FLUOCINONIDE 0.05% CREAM 30GM TOP PRN (08:29)
[2022-04-19] MEDS: ASPIRIN EC 81 MG TAB PO SCH (08:30)
[2022-04-19] MEDS: AMLODIPINE 5 MG TAB PO SCH (08:30)
[2022-04-19] MEDS: VALSARTAN 80 MG TAB PO SCH (08:30)
[2022-04-19] MEDS: MAGNESIUM OXIDE 400 MG TAB PO SCH (08:31)
== END 2022-04-19 10:57 | disposition home or self-care (01) | DRG 948 ==
LOC: 5TH 04-07 13:03
PROVIDERS: ADMIT Psychiatry & Neurology Neurology with Special Qualifications in Child Neurology; ATTEND Psychiatry & Neurology Neurology with Special Qualifications in Child Neurology
PROC: 0HBRXZZ Excision of Toe Nail, External Approach (ICD-10-PCS; principal; 2022-04-12)
DX: R53.81 Other malaise (principal); I10 Essential (primary) hypertension; E78.5 Hyperlipidemia, unspecified; L60.2 Onychogryphosis; I70.91 Generalized atherosclerosis; B35.1 Tinea unguium; Z88.1 Allergy status to other antibiotic agents; Z88.5 Allergy status to narcotic agent; Z88.8 Allergy status to other drugs, medicaments and biological substances; Z79.82 Long term (current) use of aspirin; Z79.52 Long term (current) use of systemic steroids; Z79.899 Other long term (current) drug therapy; Z20.822 Contact with and (suspected) exposure to COVID-19
CPT/HCPCS: 36415; 80048; 81001; 82040; 83735; 84134; 85025; 87077; 87086; 87088; 87186; 97110; 97112; 97116; 97161; 97165; 97530; 97535; 97542; J7512; Q0162; U0003